=== PATIENT | female | born 1980 | race Caucasian/White ===

== ENCOUNTER → 2019-09-28 09:37 | Outpatient (CLI) | payer MEDICARE, SELFPAY ==
[2019-09-28 23:24] LABS: COVID19 Sendout Not Detected (Not Detect)
== END ==
PROVIDERS: Visit Provider Nurse Practitioner
DX: Z01.812 Encounter for preprocedural laboratory examination (principal)
CPT/HCPCS: 87635

== ENCOUNTER 2019-10-01 11:26 | Inpatient (IN) | payer MEDICARE, SELFPAY ==
[2019-09-24 12:59] VITALS: BMI 31.8
[2019-10-01] VITALS (17 sets, daily range): BP systolic 121–184; BP diastolic 64–129; PULSE 63–109; RESP 10–20; TEMP 36.9–37.8; O2SAT 95–100; BMI 31.8
--- NOTE | 2019-10-01 | DI.RAD.S_ITS ---
PROCEDURE: XR LUMBAR SPINE 2-3V INDICATIONS: TLIF L3-4 TECHNIQUE: 2 views of the lumbar spine were acquired. COMPARISON: None. FINDINGS: Bones: Postoperative evaluation showing bilateral transverse pedicle screws and vertical fixation rods centered at L3-L4, with an interbody disc prosthesis (cage type). Soft tissues: Normal. IMPRESSION: Normal alignment established by posterior fusion crossing L3-L4 with interbody cage is prosthesis at the intervening disc level. Dictated by: Jose Eduardo Pak M.D. on 10/01/2019 at 19:33 Approved by: Jose Eduardo Pak M.D. on 10/01/2019 at 19:35
[2019-10-01] MEDS: LACTATED RINGERS 1,000 ML 42 ML IV ×2 (14:14→16:23)
--- NOTE | 2019-10-01 14:17 | PM.PREOP ---
Pre-operative Note COVID-19 COVID-19 status: Negative Result date/Date tested (Pos, Neg/Pending): 09/29/19 Interval Note History & Physical reviewed/Exam performed by Physician: Yes Changes to H&P: No
[2019-10-01] MEDS: CLINDAMYCIN 900 MG/50 ML PIGGYBACK 50 MG IV ×2 (15:00→22:39)
--- NOTE | 2019-10-01 15:17 | SUR.OPER ---
Prone on spine table, head in foam head support, padded chest and pelvic supports, gel pad at knees, lower legs supported by pillows; nipples, genitalia and toes free of pressure, arms secured on foam padded arm boards at <90 degrees abduction. Tape over blanket at thigh secured to table.
[2019-10-01] MEDS: BUPIVACAINE 0.25% W/ EPI 30 ML VIAL INJ (15:28)
[2019-10-01] MEDS: BUPIVACAINE LIPOSOME 266 MG/20 ML VIAL INJ (15:29)
--- NOTE | 2019-10-01 15:29 | SUR.OPER ---
GLASSES IN LABELED BAG TO PACU WITH PATIENT
--- NOTE | 2019-10-01 17:26 | PM.OP.1 ---
Operative Date/Time/Diagnoses Date of procedure: 10/01/19 Time of procedure: 15:27 Pre-op diagnosis: 1. L3-4 left far lateral disc herniation 2. 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 L3-4 Postero-lateral and posterior interbody fusion 2. L3-4 interbody cage placement. 3. L3-4 decompressive laminectomy with bilateral facetecomies 4. L3-4 Posterior non-segmental instrumentation 5. [place] of bone marrow from iliac crest 6. Utilization of microsurgical technique and operating microscope Same procedure as scheduled: Yes Indications: Patient has been having chronic back pain and worsening lumbar radiculopathy. Patient failed multiple conservative management with worsening pain weakness and numbness in her lower extremity. Patient has been having difficulty performing activity of daily living. After discussing risks benefits of treatment options, patient elected proceed with surgery. Surgeon: Johnathon Warner Award Machine Operator: Jenniffer Martin Click Yes if Unassisted: No Anesthesia Type: General Operative Notes Closure Type: primary Specimen(s): none sent Prosthetic devices, grafts, tissues, transplants, or devices: Globus revolve screws, RIse cage Estimated Blood Loss (mL): 100 Blood products transfused: none Procedure in detail: Patient was seen in the preoperative area. Risks and benefits of the surgery was discussed with the patient. Informed consent was obtained from the patient and placed in the chart. Surgical site was marked. Patient was taken to the operative room. General anesthesia was administered. Prophylactic antibiotic was given to the patient less than 30 min before the incision was made. Patient was placed into a prone position on the Pepe table. Patient's back was then prepped and draped in the sterile fashion. Time-out was performed at this time. Using AP and lateral C-arm imaging the interval between L3-4 was identified and marked on patient's back. A 2 inch incision 2 in from midline was made on the left side first. The fascia was incised in line with skin incision. Globus MARS retractors was placed inside the incision and docked onto the L3 lamina. Using microsurgical technique and operating microscope, a L3 laminectomy and L3-4 facetectomy was performed using a Kerrison rongeur. The disc fragment along with the L3-4 facet was causing severe impingement of the L3 nerve root. The facetectomy laminectomy and diskectomy at L3-4 level was performed for decompression purposes. The disc space at L 3-4 was identified. And a total diskectomy was performed at L3-4 level. Patient was found have a large extruded disc into the L3-4 foramen on the left side causing severe impingement of the L3 nerve root. In order to remove the disc fragment a total facetectomy was performed of the L3-4 facet. The disc fragment along with the L3-4 disc was removed for decompression purposes. The L3-4 level was grossly unstable after the diskectomy and facetectomy was completed and required a fusion procedure at same time. The endplates were decorticated using a rasp and shaver. The total diskectomy and decortication was performed at L3-4 level in order to to accomplish a L3-4 fusion. The local bone from the laminectomy and facetectomy was saved for local bone grafting. After the total diskectomy and decortication was completed, Trifecta bone graft material was combined with local bone that was harvested earlier. At this time, a separate skin is incision was made over the iliac crest. A Jamshidi needle was inserted into the iliac crest through a separate skin incision. 5 cc of bone marrow aspiration was obtained through the separate skin incision using a Jamshidi needle from the iliac crest. The bone marrow aspiration was combined with local bone and the Trifecta bone grafting material. The bone grafting material was placed into the L3-4 interbody space along with a expandable cage. The cage was expanded to its maximum height using the torque limiting screwdriver. At this time a mirror image incision was made on the right side. The fascia was incised in line with the skin incision. Globus MARS retractor was inserted and docked onto the L3-4 posterolateral gutter. Using the power drill, posterior-lateral decortication was performed at L3-4 level until bleeding cortical bone was identified. The remaining bone grafting material was placed into the L3-4 posterior lateral gutter he order to accomplish posterolateral fusion at the L3-4 level. Using the double C-arm technique, pedicle screws were placed into the L3-4 pedicles bilaterally. This was done by placing the Jamshidi needle into the pedicles, then placing the guidewires over the Jamshidi needle, and finally placing the cannulated screws over the guidewires bilaterally. After the pedicle screws were placed, 2 titanium rods was locked into the heads of the pedicle screws using locking caps and torque limiting screwdriver. After all the hardware was placed, and confirmed with AP and lateral C-arm imaging, the wound was then irrigated with sterile normal saline and packed with Ray-Brian gauze for 3 min to accomplish hemostasis. After the gauze was removed the deep fascia was closed with #1 Vicryl suture. The subcutaneous layer was closed with 2-0 Vicryl. The skin was closed with skin jemma. Patient tolerated the procedure well. There were no complications. Complications: none Post-operative Condition: stable Disposition: PACU Plan for aftercare: Admit to inpatient hospital
[2019-10-01] MEDS: LORazepam 2 MG/ML INJ 0.25 MG IV (17:43)
[2019-10-01] MEDS: OXYCODONE IR 5 MG TABLET PO ×2 (17:43→18:05)
[2019-10-01] MEDS: hydrOXYzine 50 MG/ML INJ 25 MG IM (17:43)
[2019-10-01] MEDS: HYDROMORPHONE 2 MG INJ IV ×2 (17:54→18:00)
--- NOTE | 2019-10-01 18:26 | SUR.PHASEI ---
Patient started crying and was inconsolable. Gave IV pain medication per order.
--- NOTE | 2019-10-01 18:46 | SUR.PHASEI ---
Gave report to Peggy. Patient is dozing intermittently and appears comfortable. Tolerating po.
[2019-10-01] MEDS: SODIUM CHLORIDE 0.9% 1,000 ML 100 ML IV (19:08)
[2019-10-01] MEDS: HYDROMORPHONE 0.5 MG INJ IV ×2 (19:39→21:36)
[2019-10-01] MEDS: hydrOXYzine pamoate 25 MG CAPSULE PO (19:39)
[2019-10-01] MEDS: ONDANSETRON 4 MG/2 ML INJ IV (19:40)
[2019-10-01] MEDS: MAG HYDROX/ALUM/SIMETH 30 ML UDC PO (19:45)
[2019-10-01] MEDS: OXYCODONE ER 10 MG TAB PO (20:45)
[2019-10-01] MEDS: OXYCODONE IR 10 MG TABLET PO (20:46)
[2019-10-01] MEDS: MONTELUKAST 10 MG TABLET PO (20:46)
[2019-10-01] MEDS: DOCUSATE 100 MG CAPSULE PO (20:46)
[2019-10-01] MEDS: SENNOSIDES 8.6 MG TABLET 17.2 MG PO (20:46)
[2019-10-02] VITALS (9 sets, daily range): BP systolic 121–132; BP diastolic 66–85; PULSE 92–111; RESP 16–20; TEMP 37.1–37.9; O2SAT 94–99
[2019-10-02] MEDS: OXYCODONE IR 10 MG TABLET PO ×3 (00:04→06:57)
[2019-10-02] MEDS: HYDROMORPHONE 0.5 MG INJ IV ×11 (00:04→22:32)
[2019-10-02] MEDS: hydrOXYzine pamoate 25 MG CAPSULE PO ×2 (00:05→03:54)
[2019-10-02] MEDS: CLINDAMYCIN 900 MG/50 ML PIGGYBACK 50 MG IV (05:57)
--- NOTE | 2019-10-02 06:07 | PC.NURSE ---
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 Request pain medication Q2hrs as well, becomes tearful and shaky. IV Dilaudid given Q2h prn, 10mg oxycodone and 25mg PO Vistartil given Q4h prn per Emar. VSS, SpO2 97% on RA. Drsg to lower back CDI, CMS intact.
[2019-10-02] MEDS: DOCUSATE 100 MG CAPSULE PO ×2 (07:40→20:36)
[2019-10-02] MEDS: OXYCODONE ER 10 MG TAB PO ×2 (07:40→20:36)
--- NOTE | 2019-10-02 07:47 | PM.PNPO.1 ---
Subjective Subjective Date Patient Seen: 10/02/19 Time Patient Seen: 07:47 Interval history: Postop day 1 status post L3-[address] Warner. She had a lot of pain last night, and pain was not controlled with oxycodone 10 mg, and OxyContin 10 ER. After reviewing [facility] patient is regularly prescribed Dilaudid 4 mg with past refills of #112 tablets. She also takes fentanyl 25 mcg patch regularly. Patient reports to nursing she normally takes 8mg of dilaudid every 6 hours. She has been getting up to go to the bathroom. Pain is localized to her back. No radicular symptoms. Exam Vital Signs (past 8 hours): - 10/02/19 00:15 10/02/19 04:25 Temperature 98.8 F 99.2 F Pulse Rate 111 H 92 H Respiratory Rate 16 16 Blood Pressure 131/68 129/72 Pulse Oximetry 97 97 Oxygen Delivery Method Room Air Oxygen Flow Rate 2 Narrative Exam Narrative: Patient is sitting up in bed in no acute distress. Alert orient x3. Calves are soft, her somehow nontender bilaterally. Sensation intact light touch throughout bilateral lower extremities. Dorsalis pedis pulses symmetrical. She is able to actively dorsiflex and plantar flex. Dressing on back CDI. SCDs on and functioning. Objective Labs Result Diagrams: 10/02/19 08:12 Assessment & Plan Post-op Postoperative Procedures: Procedures Operation Date: 10/01/19 13:45 Actual Procedures Side Surgeon p L3-4 TLIF w/ instrumentation Not Applicable Johnathon Wraner MD Given patient's chronic pain and use of Dilaudid and fentanyl regularly it is warranted to start Dilaudid 8 mg every 4 hours for postoperative pain control. She will continue OxyContin 10 mg ER b.i.d.. Patient will mobilize with physical therapy today. 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 Once patient is mobilizing safely with adequate pain control she can go home.
[2019-10-02] MEDS: HYDROMORPHONE 4 MG TABLET PO (08:10)
[2019-10-02 08:19] LABS: Hematocrit 39.4 % (36-46); Hemoglobin 13.1 g/dL (12.0-16.0); Mean Corpuscular HGB Conc 33.3 % (30-36); Mean Corpuscular Hemoglobin 32.8 PG (26-34); Mean Corpuscular Volume 98.4 fL (80-100); Platelet Count 215 X10^3/uL (150-400); Red Cell Distribution Width 13.2 % (11.6-14.8); White Blood Cell Count 16.1 X10^3/uL (4.5-11.0)
--- NOTE | 2019-10-02 08:40 | OT.IP.EVAL ---
Current Diagnoses Spinal stenosis, lumbar region without neurogenic claudication (10/01/19) Intervertebral disc disorders with radiculopathy, lumbar region (10/01/19) Surgery Performed Operation Date: 10/01/19 13:45 Actual Procedures p L3-4 TLIF w/ instrumentation(Not Applicable) - Johnathon Warner MD Past Medical History (Last Updated 09/24/19 @ 15:09 by Rashmi Chaudhry RN) Anemia (Acute) Anxiety (Acute) Asthma (Acute) Bipolar 1 disorder (Acute) Chronic pain disorder (Acute) Depression (Acute) Easy bruisability (Acute) Andreea-Danlos syndrome (Acute) Fragile skin (Acute) Hypokalemia (Acute) Hypotension (Acute) Kidney stones (Acute) Nerve damage (Acute) PTSD (post-traumatic stress disorder) (Acute) Seasonal allergies (Acute) Skin abnormalities (Acute) Spinal stenosis (Acute) Surgical History (Last Updated 09/24/19 @ 15:03 by Rashmi Chaudhry RN) History of hysterectomy (Acute) History of surgery (Acute 05/09/17) Hx of cholecystectomy (Acute) Hx of foot surgery (Acute) Hx of toe surgery (Acute 03/30/19) S/P cervical spinal fusion (Acute 2015) Occupational Therapy Inpatient Evaluation/Re-Eval M1 PT/OT-IP Prior Functional Status Start: 10/02/19 12:50 Freq: NEEDED Status: Active Protocol: Document 10/02/19 08:40 [facility] (Rec: 10/02/19 13:11 [facility] [id number]) Medical Review Prior Functional Status Medical History Reviewed Yes Communication WNL. Pt is an effective verbal communicator. Mobility and Gait Pt is an independent household and community ambulator. She states she sometimes wears a lumbar brace during mobility. 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 Activities of Daily Living and IADL's Independent with increased time. Social History Household Members significant other Living Arrangements House Number of Floors (Floors) One Floor Number of Stairs To Enter/Railing? Ramped entry Home Environment High Toilet,Walk in Shower, Ramp Home Equipment Four Wheel Walker,Crutches, Shower Seat without Backrest, Hand Held Shower,Hospital Bed, Grab Bars Near Toilet,Grab Bars In Shower Additional Social History Comment Pt lives with her boyfriend who works overnight shifts. She has a friend from [place] who is staying with her for the next month to provide assist as needed. M2 OT-IP Current Condition Start: 10/02/19 12:50 Freq: Status: Active Protocol: Document 10/02/19 08:40 [facility] (Rec: 10/02/19 13:11 [facility] [id number]) Occupational Therapy Current Condition Current Condition Evaluation Date 10/02/19 Treatment Diagnosis Lumbar herniation s/p L3-4 TLIF Diagnosis Onset Date 10/01/19 Post Operative Precautions Lumbar Precautions Log Roll,No Twisting,Limit Bending,Lifting Restriction of 10 lbs,Gait Belt above Incisional Area Weight Bearing Status Weight Bearing Status Weight Bear as Tolerated M3 OT- IP Subjective and Pain Start: 10/02/19 12:50 Freq: Status: Active Protocol: Document 10/02/19 08:40 [facility] (Rec: 10/02/19 13:11 [facility] [id number]) OT- Subjective Occupational Therapy Visit Type Type Initial Evaluation Visit Start Time 08:40 Visit Stop Time 09:26 Total Visit Minutes 46 Occupational Therapy Visit Comments Patient Comments Pt open to getting up. Pt's friend from [place] in the room and was woken up to participate in OT eval. Patient/Caregiver Goals To go home. OT Pain Assessment Pain When Pain Assessed During Mobility Pain Present Pain Present Pain Reported Location Back Intensity 3 M4 OT- IP ADL's Start: 10/02/19 12:50 Freq: Status: Active Protocol: Document 10/02/19 08:40 [facility] (Rec: 10/02/19 13:11 [facility] [id number]) OT NPE-Olbk-Lzozena General Evaluation Self-Feeding Ability Independent OT ADL-Grooming General Evaluation Grooming Ability Standby Assistance Areas Needing Assistance Retrieving/Set-up of Grooming Items Comments OT Grooming Comments Educated to bend at her hips while spitting. OT ADL-Dressing General Eval Lower Body Dressing Ability Standby Assistance Areas Needing Assistance Socks Comments OT Dressing Comments Pt able to doff/naa her socks while sitting at the edge of the bed, however able to show and educate pt on LB dressing equipment to increased ease , safety and independence for needs. OT ADL-Toileting General Evaluation Toileting Ability Standby Assistance,Moderate Assistance Areas Needing Assistance Perform Perineal Hygiene Comments OT Toileting Comments At this time pt not able to reach back if needing to do hygiene after a bowel movement. Educated on use of toilet paper aid to assist to needs. OT ADL-Bathing Comments OT Bathing Comments Not at this time. M5 OT- IP IADL's Start: 10/02/19 12:50 Freq: Status: Active Protocol: Document 10/02/19 08:40 [facility] (Rec: 10/02/19 13:11 [facility] [id number]) OT-Instrumental Activities of Daily Living Home Safety Awareness Awareness of Need for Assistance at Home Good Awareness Ability to Problem Solve Emergency Able to Problem Solve Situations Medication Management Medication Management No Deficits Identified Money Management Money Management No Deficits Identified Meal Preparation Meal Preparation Caregiver Provides Assist Film Printer Film Printer Caregiver Provides Assist Driving Driving Caregiver Provides Assist M6 OT- IP Functional Cognition Start: 10/02/19 12:50 Freq: Status: Active Protocol: Document 10/02/19 08:40 [facility] (Rec: 10/02/19 13:11 [facility] [id number]) Cognitive Factors Limiting Selfcare Function Cognitive Ability Level of Alertness Alert Patient Orientation Name,Age,Birthday,Month,Date, Year,Day of Week,Place, Situation Attention Span Ability Capable of Focused Attention, Capable of Sustained Attention Ability to Follow Commands Able to Follow One Step Commands Safety Awareness Decreased Ability to Apply Precautions,Underestimates Need for Assistance Cognitive Comments Cognitive Assessment Comments VC for safety awareness and to incorporate back precautions for needs. OT- Vision and Hearing OT- Hearing Assessment OT- Hearing Assessment WFL OT- Vision Assessment Visual Acuity Glasses All The Time M7 OT- IP Mobility and Balance Start: 10/02/19 12:50 Freq: Status: Active Protocol: Document 10/02/19 08:40 [facility] (Rec: 10/02/19 13:11 [facility] [id number]) OT- Bed Mobility Assessment Supine to Sit Supine to Sit Assist Minimal Assistance,1 Person Assistance Sit to Supine Sit to Supine Assist Minimal Assistance,1 Person Assistance OT-Transfer Assessment Sit to and From Stand Sit to and from Stand Contact Guard Assistance,1 Person Assistance Transfers Transfer Ability Contact Guard Assistance,1 Person Assistance Technique Transfer Destination Bed,Chair Comments Mobility Comments VC for sequence of log rolling , FANNIE to get upright and CGA tro stand to FWW. OT- Balance Assessment Sitting Balance and Reactions Static Sitting Balance Ability Good Dynamic Sitting Balance Ability Good Standing Balance and Reactions Static Standing Balance Ability Good M8 OT- IP Objective Assessments Start: 10/02/19 12:50 Freq: Status: Active Protocol: Document 10/02/19 08:40 [facility] (Rec: 10/02/19 13:11 [facility] [id number]) OT Gross Range of Motion Upper Extremity Range of Motion Assessment Within Functional Limits M9 OT- IP Assessment and Plan Start: 10/02/19 12:50 Freq: Status: Active Protocol: Document 10/02/19 08:40 [facility] (Rec: 10/02/19 13:11 [facility] [id number]) OT Summary Assessment and Plan Potential Rehabilitation Potential Good Analytic Complexity at Evaluation Low Summary OT Impairments Balance,Functional Cognition, Functional Mobility,Grooming, Dressing,Toileting,Bathing, Toilet Transfers,Shower Transfers,Activity Tolerance Progress Towards Goals Progressing Toward Goals Assessment Summary Pt low complexity main barriers are pain and now needing assist for mobility and ADl needs. Pt has a friend to stay with her at home to assist. Therefore continue OT to work with pt and friend for safety of back precautions for Adl , functional mobility and for equipment needs. Goals Grooming Goal Independent Dressing Goal Independent Toileting Goal Independent Bathing Goal Standby Assistance Toilet Transfer Goal Independent Shower Transfer Goal Independent Patient/Caregiver Education Goal Demonstrate Post-Op Precautions,Caregiver Independent Assisting Patient Days to Meet Goals 7 Frequency of Treatment Frequency Of Treatment Once a Day Treatment Plan OT Treatment Plan ADL Training,Functional Cognition Training,Functional Mobility,Patient/Family Education,Discharge Planning Other Treatment Recommendations and Next Caregiver training with pt's Treatment Focus friend. Discharge Recommendations OT Discharge Recommendations Home with Assistance Home Equipment Needs Pt to get shower chair with back, LB dressing equipment , and toilet aid. Transportation Needs at Discharge Private Vehicle
[2019-10-02] MEDS: HYDROMORPHONE 4 MG TABLET 8 MG PO ×4 (11:04→23:31)
--- NOTE | 2019-10-02 11:16 | PT.IIE ---
Current Diagnoses Spinal stenosis, lumbar region without neurogenic claudication (10/01/19) Intervertebral disc disorders with radiculopathy, lumbar region (10/01/19) Surgery Performed Operation Date: 10/01/19 13:45 Actual Procedures p L3-4 TLIF w/ instrumentation(Not Applicable) - Johnathon Warner MD Surgical History (Last Updated 09/24/19 @ 15:03 by Rasmhi Chaudhry RN) History of hysterectomy (Acute) History of surgery (Acute 05/09/17) Hx of cholecystectomy (Acute) Hx of foot surgery (Acute) Hx of toe surgery (Acute 03/30/19) S/P cervical spinal fusion (Acute 2015) Medical History (Last Updated 09/24/19 @ 15:09 by Rashmi Chaudhry RN) Anemia (Acute) Anxiety (Acute) Asthma (Acute) Bipolar 1 disorder (Acute) Chronic pain disorder (Acute) Depression (Acute) Easy bruisability (Acute) Andreea-Danlos syndrome (Acute) Fragile skin (Acute) Hypokalemia (Acute) Hypotension (Acute) Kidney stones (Acute) Nerve damage (Acute) PTSD (post-traumatic stress disorder) (Acute) Seasonal allergies (Acute) Skin abnormalities (Acute) Spinal stenosis (Acute) Physical Therapy Inpatient Evaluation/Re-Eval M1 PT/OT-IP Prior Functional Status Start: 10/02/19 08:29 Freq: NEEDED Status: Active Protocol: Document 10/02/19 10:49 AW (Rec: 10/02/19 11:16 AW [id number]) Medical Review Prior Functional Status Medical History Reviewed Yes Communication WNL. Pt is an effective verbal communicator. Mobility and Gait Pt is an independent household and community ambulator. She states she sometimes wears a lumbar brace during mobility. 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 Activities of Daily Living and IADL's Independent Social History Household Members significant other Living Arrangements House Number of Floors (Floors) One Floor Number of Stairs To Enter/Railing? Ramped entry Home Environment High Toilet,Walk in Shower, Ramp Home Equipment Four Wheel Walker,Crutches, Shower Seat without Backrest, Hand Held Shower,Hospital Bed, Grab Bars Near Toilet,Grab Bars In Shower Additional Social History Comment Pt lives with her boyfriend who works overnight shifts. She has a friend from [place] who is staying with her for the next month to provide assist as needed. M2 PT-IP Current Condition Start: 10/02/19 08:29 Freq: NEEDED Status: Active Protocol: Document 10/02/19 10:49 AW (Rec: 10/02/19 11:16 AW [id number]) Physical Therapy Current Condition Current Condition Evaluation Date 10/02/19 Treatment Diagnosis L3-4 TLIF; difficulty in walking Onset Date 10/01/19 Precautions Lumbar Precautions Log Roll,No Twisting,Limit Bending,Lifting Restriction of 10 lbs,Gait Belt above Incisional Area M3 PT-IP Subjective Start: 10/02/19 08:29 Freq: NEEDED Status: Active Protocol: Document 10/02/19 10:49 AW (Rec: 10/02/19 11:16 AW [id number]) Subjective Physical Therapy Visit Type Type Initial Evaluation Visit Start Time 09:35 Visit Stop Time 09:58 Total Visit Minutes 23 Physical Therapy Visit Comments Patient Comments Pt has difficulty tolerating the chair and wanting to return to the bed. She was willing to work with PT. Patient Goals Pt hopes to discharge to home with her friend and boyfriend assisting. Therapy Pain Assessment Pain When Pain Assessed During Mobility Pain Present Pain Present Pain Reported Location Back Intensity 6 Scale Used 6/10 at rest; unchanged with mobility Pain Behaviors Facial Grimacing,Wincing M4 PT-IP Mobility and Gait Start: 10/02/19 08:29 Freq: NEEDED Status: Active Protocol: Document 10/02/19 10:49 AW (Rec: 10/02/19 11:16 AW [id number]) PT-Bed Mobility Assessment Rolling Type of Rolling Log Rolling Level of Assist Contact Guard Assistance Sit to Supine Sit to Supine Minimal Assistance,1 Person Assistance Scooting Scooting to Edge of Bed Standby Assistance Scooting Up and Down in Bed Standby Assistance PT-Transfer Assessment Sit to and From Stand Sit to and from Stand Contact Guard Assistance,1 Person Assistance Equipment Transfer Assistive Device Gait Belt,Front Wheeled Walker Orthotic/Prosthetic Devices or Brace: No Transfers Transfer Destination Bed Transfer Technique pt ambulated with FWW Transfer Ability Level of Assist Contact Guard Assistance Comments Mobility Comments Pt was returning to bed as PT entered the room. She had sat in the chair for ~10 minutes before requesting return to bed. PT took over from LEAD RUBY [employer] RAILS DEVELOPER and pt stood using FWW CGA. She proceeded to ambulate in the halls with FWW CGA before returning to the room and requesting return to bed. She sat on the right side of the bed and completed log roll and return to supine min A x 1 and cues for sequencing. Pt was positioned on the bed with alarm on, bilateral SCD's applied, call light and all needs within reach. Gait Assessment Gait Gait Assistance Required: Standby Assistance,Contact Guard Assist Distance (Feet) 400 Assistive Devices Assistive Device Gait Belt,Front Wheeled Walker Orthotic/Prosthetic Devices or Brace: No Gait Deviations General Gait Pattern Antalgic,Decreased Stride Length,Decreased Feet Clearance,Flexed Trunk Factors Limiting Gait Function Factors Limiting Gait Function Decreased Activity Tolerance, Decreased Strength,Limited Range of Motion,Pain,Poor Balance,Poor Safety Awareness Comments Gait Comments Pt ambulated with FWW around the [facility] station three times. It feels good to move. Pt required minimal verbal cues for safe use of FWW and to avoid twisting movements. Stair Climbing Assessment Comments Stair Climbing Comments Not assessed. Pt has ramped entry at home. PT-Balance Assessment Sitting Balance and Reactions Static Sitting Balance Ability Good Dynamic Sitting Balance Ability Good Standing Balance and Reactions Static Standing Balance Ability Good Dynamic Standing Balance Ability Good Device Used FWW M5 PT-IP Objective Assessments Start: 10/02/19 08:29 Freq: NEEDED Status: Active Protocol: Document 10/02/19 10:49 AW (Rec: 10/02/19 11:16 AW [id number]) Orientation Orientation/Cognition Level of Alertness Alert Orientation Name,Day of Week,Place, Situation Language Function Ability No Deficits Noted Safety Awareness Understands Safety Issues Memory Description No Deficits Noted Gross Range of Motion Lower Extremity ROM Assessment Within Functional Limits Strength Lower Extremity Strength Hip 4/5 Knee 4+/5 Ankle 4+/5 Coordination Assessment Gross Coordination Gross Coordination WNL Sensation Assessment Sensation Gross Sensation WNL Muscle Tone Muscle Tone WNL Yes M6 PT-IP Treatment Start: 10/02/19 08:29 Freq: NEEDED Status: Active Protocol: Document 10/02/19 10:49 AW (Rec: 10/02/19 11:16 AW [id number]) Physical Therapy Treatment Education Education Provided Precautions,Weight Bearing Status,Post-Op Packet,Safety Other Treatments Other Treatment Performed Provided education on role of PT, plan of care, post-op precautions, benefits of continued mobility, and safe use of FWW. M7 PT-IP Assessment and Plan Start: 10/02/19 08:29 Freq: NEEDED Status: Active Protocol: Document 10/02/19 10:49 AW (Rec: 10/02/19 11:16 AW [id number]) PT Summary Assessment and Plan Potential Rehabilitation Potential Good Status of Condition at Evaluation Evolving Summary Impairments Pain,ROM,Strength,Balance,Bed Mobility,Transfers,Gait, Activity Tolerance Assessment Summary Mildred is a 39 yo woman with history of Andreea Danlos syndrome seen for PT evaluation on POD1 following L3-4 TLIF. At baseline, she is an independent ambulator. On evaluation, she required min assist for bed mobility and SBA to CGA for ambulation with FWW. Pt has a 4WW at home. Gait will be assessed with 4WW at PM session. Pt did require multiple reminders to avoid twisting movements in the bed. Her underlying hypermobility makes this especially important. PT anticipates pt will be safe to discharge to home environment with assist from her boyfriend and friend once medically cleared. Goals Bed Mobility Goal Standby Assistance Transfer Goal Independent,Four Wheeled Walker Gait Goal Independent,Four Wheel Walker Gait Distance 500 Other Goals - pt will verbalize post op spinal precautions and be able to teach her friend and/or boyfriend Days to Meet Goals 2 Frequency of Treatment Frequency Of Treatment Twice a Day Treatment Plan Physical Therapy Treatment Plan Bed Mobility Training,Transfer Training,Gait Training, Therapeutic Exercise,Balance Retraining,Post Op Education, Discharge Planning,Hot or Cold Pack Other Recommendations and Next Treatment bed mobility; review spinal Focus precautions and ask pt to teach them to her friend or boyfriend; gait with 4WW to assess safety Recommendations To Nursing Amount of Assist Needed 1 Person Assist Discharge Recommendations PT Discharge Recommendations Home with Assistance Equipment Needed for Home Before FWW if not safe with 4WW Discharge Transportation Needs at Discharge Private Vehicle
--- NOTE | 2019-10-02 13:46 | PC.NURSE ---
Day shift: Pain controlled ok per MAY at this time. Pt's pain at rest 5-6/10 and when she gets OOB and back to bed back 01/04. Pt does see a pain doc and AVNI Martin is aware. WIll continue to monitor. BAck dressing CDI. Pt did ambulate in halls today w/ PT and tolerated well. Makes needs known proper and agrees to not get OOB w/o staff. Denies nausea. Urine output WNL. CMS ok. VS WNL.
--- NOTE | 2019-10-02 14:51 | PT.IPTN ---
Current Diagnoses Spinal stenosis, lumbar region without neurogenic claudication (10/01/19) Intervertebral disc disorders with radiculopathy, lumbar region (10/01/19) Surgery Performed Operation Date: 10/01/19 13:45 Actual Procedures p L3-4 TLIF w/ instrumentation(Not Applicable) - Johnathon Warner MD Physical Therapy Treatment Note M2 PT-IP Current Condition Start: 10/02/19 08:29 Freq: NEEDED Status: Active Protocol: Document 10/02/19 10:49 AW (Rec: 10/02/19 11:16 AW [id number]) Physical Therapy Current Condition Current Condition Evaluation Date 10/02/19 Treatment Diagnosis L3-4 TLIF; difficulty in walking Onset Date 10/01/19 Precautions Lumbar Precautions Log Roll,No Twisting,Limit Bending,Lifting Restriction of 10 lbs,Gait Belt above Incisional Area M3 PT-IP Subjective Start: 10/02/19 08:29 Freq: NEEDED Status: Active Protocol: Document 10/02/19 14:41 CLB (Rec: 10/02/19 15:01 CLB [email or web address]) Subjective Physical Therapy Visit Type Type Treatment Note Visit Start Time 14:41 Visit Stop Time 14:51 Total Visit Minutes 10 Notes Friend present but deeply sleeping during tx. Number of TOOL COORDINATOR Visits 1 Physical Therapy Visit Comments Patient Comments Pt willing to work with therapy. Therapy Pain Assessment Pain When Pain Assessed During Mobility Pain Present Pain Present Pain Reported Location Back Intensity 7 Scale Used 5/10 at rest Pain Behaviors Facial Grimacing,Wincing M4 PT-IP Mobility and Gait Start: 10/02/19 08:29 Freq: NEEDED Status: Active Protocol: Document 10/02/19 14:41 CLB (Rec: 10/02/19 15:01 CLB [email or web address]) PT-Bed Mobility Assessment Rolling Type of Rolling Log Rolling Level of Assist Contact Guard Assistance Supine to Sit Supine to Sit Contact Guard Assistance Sit to Supine Sit to Supine Contact Guard Assistance Scooting Scooting to Edge of Bed Standby Assistance Scooting Up and Down in Bed Standby Assistance PT-Transfer Assessment Sit to and From Stand Sit to and from Stand Standby Assistance,1 Person Assistance,Use of Upper Extremities Equipment Transfer Assistive Device Gait Belt,Front Wheeled Walker Orthotic/Prosthetic Devices or Brace: No Transfers Transfer Destination Bed Transfer Technique pt ambulated with FWW Transfer Ability Level of Assist Contact Guard Assistance Comments Mobility Comments Pt performed LR and sit-supine CGA. Pt was able to scoot to EOB and stand SBA. Pt ambulated in [place] ~ 200ft w/ FWW/SBA with steady gait and good posture. Pt returned to bed with reverse LR to supine CGA. Left pt in bed with alarm on, SCD's on and all needs within reach. Gait Assessment Gait Gait Assistance Required: Standby Assistance Distance (Feet) 200 Assistive Devices Assistive Device Gait Belt,Front Wheeled Walker Orthotic/Prosthetic Devices or Brace: No Gait Deviations General Gait Pattern Antalgic,Decreased Stride Length,Decreased Feet Clearance,Flexed Trunk Factors Limiting Gait Function Factors Limiting Gait Function Decreased Activity Tolerance, Decreased Strength,Limited Range of Motion,Pain,Poor Balance Comments Gait Comments See mobility notes Stair Climbing Assessment Comments Stair Climbing Comments Not assessed. Pt has ramped entry at home. PT-Balance Assessment Sitting Balance and Reactions Static Sitting Balance Ability Good Dynamic Sitting Balance Ability Good Standing Balance and Reactions Static Standing Balance Ability Good Dynamic Standing Balance Ability Good Device Used FWW M5 PT-IP Objective Assessments Start: 10/02/19 08:29 Freq: NEEDED Status: Active Protocol: Document 10/02/19 10:49 AW (Rec: 10/02/19 11:16 AW [id number]) Orientation Orientation/Cognition Level of Alertness Alert Orientation Name,Day of Week,Place, Situation Language Function Ability No Deficits Noted Safety Awareness Understands Safety Issues Memory Description No Deficits Noted Gross Range of Motion Lower Extremity ROM Assessment Within Functional Limits Strength Lower Extremity Strength Hip 4/5 Knee 4+/5 Ankle 4+/5 Coordination Assessment Gross Coordination Gross Coordination WNL Sensation Assessment Sensation Gross Sensation WNL Muscle Tone Muscle Tone WNL Yes M6 PT-IP Treatment Start: 10/02/19 08:29 Freq: NEEDED Status: Active Protocol: Document 10/02/19 10:49 AW (Rec: 10/02/19 11:16 AW [id number]) Physical Therapy Treatment Education Education Provided Precautions,Weight Bearing Status,Post-Op Packet,Safety Other Treatments Other Treatment Performed Provided education on role of PT, plan of care, post-op precautions, benefits of continued mobility, and safe use of FWW. M7 PT-IP Assessment and Plan Start: 10/02/19 08:29 Freq: NEEDED Status: Active Protocol: Document 10/02/19 14:41 CLB (Rec: 10/02/19 15:01 CLB [email or web address]) PT Summary Assessment and Plan Potential Rehabilitation Potential Good Status of Condition at Evaluation Evolving Summary Impairments Pain,ROM,Strength,Balance,Bed Mobility,Transfers,Gait, Activity Tolerance Assessment Summary Pt is SBA-CGA for all mobilty. Pt ambulated ~200ft w/FWW/SBA with pain at rest 5/10 increasing to 7/10 with ambulation. Pt recalled 3/3 back precautions. Pt will be safe to d/c home with boyfriend and friend to assist when medically stable. Goals Bed Mobility Goal Standby Assistance Transfer Goal Independent,Four Wheeled Walker Gait Goal Independent,Four Wheel Walker Gait Distance 500 Other Goals - pt will verbalize post op spinal precautions and be able to teach her friend and/or boyfriend Days to Meet Goals 2 Frequency of Treatment Frequency Of Treatment Twice a Day Treatment Plan Physical Therapy Treatment Plan Bed Mobility Training,Transfer Training,Gait Training, Therapeutic Exercise,Balance Retraining,Post Op Education, Discharge Planning,Hot or Cold Pack Other Recommendations and Next Treatment bed mobility; review spinal Focus precautions and ask pt to teach them to her friend or boyfriend; gait with 4WW to assess safety Recommendations To Nursing Amount of Assist Needed 1 Person Assist Discharge Recommendations PT Discharge Recommendations Home with Assistance Equipment Needed for Home Before FWW if not safe with 4WW Discharge Transportation Needs at Discharge Private Vehicle
--- NOTE | 2019-10-02 14:57 | CM.DANOTE ---
Discharge Planning/Care Management DCP: assessment: case received, EMR reviewed. Discussed in Team Rounds. PT and OT were ordered but had not yet worked with pt. Pt is a 39 year old female who carried diagnosis of Andreea -Danlos syndrome and admitted to Dr. Warner for a scheduled spinal surgery: Payer: Medicare Admission status: confirmed INPT: per ALEJANDRINA Pollard. Pt's had identified her plan to pre-op nurse: [facility] as home. She lives with her boyfriend Robert. She also has a friend who will be staying for a month to help her as she recovers. P: Will pass on now to [facility] for tomorrow to check in with pt and continue the assessment process. (caseload numbers dictate same). CM Discharge Assessment Start: 10/02/19 14:54 Freq: Status: Active Protocol: Document 10/02/19 14:55 ITV (Rec: 10/02/19 14:56 ITV [id number]) Discharge Planning Assessment Advance Directives? No History Provided By Medical Record Prior Living Arrangements House Household Members significant other Is patient alert and oriented? Yes Review Status In Process Pre-Anesthesia Assessment Start: 09/24/19 12:59 Freq: Status: Complete Protocol: Document 09/24/19 12:59 CAB (Rec: 09/24/19 13:56 CAB [id number]) Pre-Anesthesia Assessment PAC Comment Andreea-Danlos syndrome - multiple joint dislocations multiple times a day, requires extreme care with positioning . Skin is very sensitive, tears easily Patient Information Reviewed Via Phone Assessment Assessment Completed With Patient Diagnostic Results BMP/CMP,CBC,EKG Comment Outside labs/EKG scanned to record COVID @ 09/28/19 Primary Care Provider Alexey Gongora Seen Specialist in Last 12 Months Yes Specialist Seen Campus Monitor,Orthopedist, Spent Grain Dryer,Other Primary Language Hebrew Program Support Assistant Required No Height 168.91 cm Weight 90.718 kg Body Mass Index (BMI) 31.8 Hearing Ability Normal Visual Assist Glasses Dentition Type Teeth, Natural Present Barriers to Learning None Hx Anesthesia Reactions Yes: PONV Hx Family Anesthesia Reaction No Hx Malignant Hyperthermia No Hx Blood Transfusions No Anesthesia Review Requested No alcohol intake never Smoking Status Never smoker Substance Use Type marijuana Comment Pt advised not to smoke marijuana 24 hours prior to surgery Pain Present Pain Reported Musculoskeletal Symptoms Abnormal Gait,Back Pain, Difficulty Walking,Joint Pain, Muscle Cramps,Muscle Spasms, Muscle Weakness,Myalgias, Numbness,Radiating Pain into Limb History of Falling (Recent or History of No ) Patient is completely paralyzed or No completely immobile Mental Status Oriented to own ability Is patient on oxygen? No Does patient have TAY/SOB No Hx Sleep Apnea No Currently Taking a Beta Shimon No Hx Chest Pain No Hx SOB No Hx Syncope or Dizziness No Anti-Coagulant Therapy No Has a Campus Monitor Yes: Dr. Cesar-last visit Cardiac Testing No: Echo 03/05/19 Hx Pacemaker/ICD No Pacemaker Rep Required? No Cardiac Clearance Received Not Applicable Comment Cardiac records scanned to chart Diet Type At Home Regular,Vegetarian dysphagia No Bladder Pattern Urgency Urinary Catheter Present No Hx Urinary Self Catheterization No Diabetes No Patient No Lactating No Hx Drug Resistant Organism No Presence of External or Internal Medical Yes: Cervical hardware, left Devices great toe hardware Have you had any close contact with No someone diagnosed with COVID-19? Evaluation/Screening for possible COVID- Yes 19 infection completed? Marital Status Single Lives With significant other Prior Living Arrangements House Number of Floors (Floors) Two Floors Support System Family,Parent(s),Significant Other Does the Patient Have Assistance After Yes Surgery Patient Discharge Plan Description Return Home Comment Pt advised one night length of stay per surgeon Feels Safe in Current Environment Yes Been Physically Hurt or Threatened By a No Person in Current Environment Do you have thoughts of harming yourself None or others? Are you currently considering suicide? No Do you have a plan to hurt yourself or No Plan others? Do You Have Any Spiritual Beliefs That No May Affect Your HC Choices? Do You Have Any Cultural Practices That No May Affect Your HC Choices? Who Can We Speak to About Patient's Care Family, friends Identifying Code for Release of Patient Declines to issue Information Health Care Proxy/Next of Kin Robert (S.O.) Health Care Proxy Emergency Contact Name Alysha (grandmother) Emergency Contact Advance Directives? No Power of Health Plan Advisor No PAC Instructions Durable medical equipment, Medications to take/avoid, Nasal antibiotic,No ETOH/ petroleum product on skin DOS, NPO,Pre-surgical wash,Sturdy shoes/comfortable clothes,Do not bring valuables and remove jewelry
[2019-10-02] MEDS: hydrOXYzine pamoate 25 MG CAPSULE 50 MG PO (18:10)
[2019-10-02] MEDS: MONTELUKAST 10 MG TABLET PO (20:35)
[2019-10-02] MEDS: SENNOSIDES 8.6 MG TABLET 17.2 MG PO (20:36)
[2019-10-02] MEDS: diphenhydrAMINE 25 MG TABLET PO (21:49)
--- NOTE | 2019-10-02 22:48 | PC.NURSE ---
Surgical lumbar dressing w/small amt of bloody drainage, margins marked. C/O constant lower back and groin pain not well controlled w/frequent narcotic admin.
[2019-10-03] MEDS: HYDROMORPHONE 0.5 MG INJ IV ×5 (02:24→15:42)
[2019-10-03] MEDS: SODIUM CHLORIDE 0.9% FLUSH 10 ML IV ×2 (03:12→08:13)
[2019-10-03] MEDS: HYDROMORPHONE 4 MG TABLET 8 MG PO ×3 (05:23→13:25)
[2019-10-03 05:54] VITALS: BP 121/69; PULSE 97; RESP 16; TEMP 37.2; O2SAT 92
[2019-10-03 07:50] VITALS: BP 113/59; PULSE 93; RESP 16; TEMP 37.2; O2SAT 94
[2019-10-03] MEDS: ALBUTEROL HFA 60 PUFF/8 GM INH INH (08:02)
[2019-10-03 08:10] VITALS: PULSE 78; RESP 18; O2SAT 96
[2019-10-03] MEDS: DOCUSATE 100 MG CAPSULE PO (08:11)
[2019-10-03] MEDS: OXYCODONE ER 10 MG TAB PO (08:11)
--- NOTE | 2019-10-03 09:28 | PT.IPTN ---
Current Diagnoses Spinal stenosis, lumbar region without neurogenic claudication (10/01/19) Intervertebral disc disorders with radiculopathy, lumbar region (10/01/19) Surgery Performed Operation Date: 10/01/19 13:45 Actual Procedures p L3-4 TLIF w/ instrumentation(Not Applicable) - Johnathon Warner MD Physical Therapy Treatment Note M2 PT-IP Current Condition Start: 10/02/19 08:29 Freq: NEEDED Status: Active Protocol: Document 10/02/19 10:49 AW (Rec: 10/02/19 11:16 AW [id number]) Physical Therapy Current Condition Current Condition Evaluation Date 10/02/19 Treatment Diagnosis L3-4 TLIF; difficulty in walking Onset Date 10/01/19 Precautions Lumbar Precautions Log Roll,No Twisting,Limit Bending,Lifting Restriction of 10 lbs,Gait Belt above Incisional Area M3 PT-IP Subjective Start: 10/02/19 08:29 Freq: NEEDED Status: Active Protocol: Document 10/03/19 09:05 SP (Rec: 10/03/19 12:25 SP [email or web address]) Subjective Physical Therapy Visit Type Type Treatment Note Visit Start Time 09:05 Visit Stop Time 09:28 Total Visit Minutes 23 Notes Friend in room when arrived, deeply sleeping during tx. Number of HOGSHEAD LINER Visits 2 Physical Therapy Visit Comments Patient Comments Pt willing to work with PT. Patient Goals Pt hopes to discharge to home with her friend and boyfriend assisting, hoping will have oral pain medications that will assist with pain control. Therapy Pain Assessment Pain When Pain Assessed At Rest Pain Present Pain Present Pain Reported Location Back Intensity 7 Scale Used 7/10 at rest, 8/10 during mobility Pain Behaviors Facial Grimacing,Restlessness, Wincing M4 PT-IP Mobility and Gait Start: 10/02/19 08:29 Freq: NEEDED Status: Active Protocol: Document 10/03/19 09:05 SP (Rec: 10/03/19 12:25 SP [email or web address]) PT-Bed Mobility Assessment Rolling Type of Rolling Log Rolling,Bilateral Level of Assist Standby Assistance Supine to Sit Supine to Sit Standby Assistance,Head of Bed Elevated,Bedrails Sit to Supine Sit to Supine Standby Assistance Scooting Scooting to Edge of Bed Standby Assistance Scooting Up and Down in Bed Standby Assistance PT-Transfer Assessment Sit to and From Stand Sit to and from Stand Standby Assistance,Use of Upper Extremities Equipment Transfer Assistive Device Gait Belt,4 Wheeled Walker Orthotic/Prosthetic Devices or Brace: No Transfers Transfer Destination Bed Transfer Technique pt ambulated with FWW Transfer Ability Level of Assist Standby Assistance,Use of Upper Extremities Comments Mobility Comments Pt was elevated supine in bed when arrived, friend deeply sleeping in bed throughout tx. 30 deg elevated log roll to R with support of bed rails and right trunk herself to sitting and scoot to EOB SBA. Sit <> stand at EOB SBA with good hip hinge and use of BUE to come to standing, stable and use of 4WW with good safety brake mgt. Pt was able to ambulate further distance in hallway step over step gait with decreased BUE pressure through 4WW SBA and increased foot clearance and stride length as distance progressed. Pt stated wanting to return to bed when returned to room. Pt performed LR during sit to supine SBA. Educated patient on ther ex could perform to assist core facilitation for spinal stabilization awareness : quad sets, supine core activation, heel slides, ankle pumps and seated LAQ pre per mobility for strength supporting mobility. HOGSHEAD LINER offered cold pack to assist pain control but declined, pt stated it didn't help earlier. Discussed progress in PT with nurse and care mgt team during rounds, improvement in self mobility and maintaining spinal precautions. Pt is able to return home with friend to assistance her and pain controlled when medically stable. Gait Assessment Gait Gait Assistance Required: Standby Assistance Distance (Feet) 420 Able to Maintain Weight Bearing Status Yes During Gait Assistive Devices Assistive Device Gait Belt,4 Wheeled Walker Orthotic/Prosthetic Devices or Brace: No Gait Deviations General Gait Pattern Antalgic,Decreased Stride Length,Decreased Feet Clearance,Flexed Trunk Factors Limiting Gait Function Factors Limiting Gait Function Decreased Activity Tolerance, Decreased Strength,Limited Range of Motion,Pain Comments Gait Comments SBA with FWW to walk to and from the bathroom. Stair Climbing Assessment Comments Stair Climbing Comments Not assessed. Pt has ramped entry at home. PT-Balance Assessment Sitting Balance and Reactions Static Sitting Balance Ability Normal Dynamic Sitting Balance Ability Good Standing Balance and Reactions Static Standing Balance Ability Good Dynamic Standing Balance Ability Fair Device Used 4WW M5 PT-IP Objective Assessments Start: 10/02/19 08:29 Freq: NEEDED Status: Active Protocol: Document 10/02/19 10:49 AW (Rec: 07/07/20 11:16 AW [id number]) Orientation Orientation/Cognition Level of Alertness Alert Orientation Name,Day of Week,Place, Situation Language Function Ability No Deficits Noted Safety Awareness Understands Safety Issues Memory Description No Deficits Noted Gross Range of Motion Lower Extremity ROM Assessment Within Functional Limits Strength Lower Extremity Strength Hip 4/5 Knee 4+/5 Ankle 4+/5 Coordination Assessment Gross Coordination Gross Coordination WNL Sensation Assessment Sensation Gross Sensation WNL Muscle Tone Muscle Tone WNL Yes M6 PT-IP Treatment Start: 10/02/19 08:29 Freq: NEEDED Status: Active Protocol: Document 10/03/19 09:05 SP (Rec: 10/03/19 12:25 SP [email or web address]) Physical Therapy Treatment Exercises Exercises Ankle Pumps,Quad Sets,Heel Slides,Supine Hip Abduction, Seated Knee Flexion/Extension Education Education Provided Precautions,Weight Bearing Status,Post-Op Packet,Safety Other Treatments Other Treatment Performed Educated core facilitation during mobility to assist spinal stabilization. M7 PT-IP Assessment and Plan Start: 10/02/19 08:29 Freq: NEEDED Status: Active Protocol: Document 10/03/19 09:05 SP (Rec: 10/03/19 12:25 SP [email or web address]) PT Summary Assessment and Plan Potential Rehabilitation Potential Good Status of Condition at Evaluation Evolving Summary Impairments Pain,ROM,Strength,Balance,Bed Mobility,Transfers,Gait, Activity Tolerance Assessment Summary Pt is SBA for all mobilty. Pt ambulated ~420ft w/4WW/SBA with pain at rest 7/10 increaseing to 8/10 with ambulation. Pt recalled 3/3 back precautions. Pt will be safe to d/c home with boyfriend and friend to assist when medically stable. Goals Bed Mobility Goal Standby Assistance Transfer Goal Independent,Four Wheeled Walker Gait Goal Independent,Four Wheel Walker Gait Distance 500 Other Goals - pt will verbalize post op spinal precautions and be able to teach her friend and/or boyfriend Days to Meet Goals 2 Frequency of Treatment Frequency Of Treatment Twice a Day Treatment Plan Physical Therapy Treatment Plan Bed Mobility Training,Transfer Training,Gait Training, Therapeutic Exercise,Balance Retraining,Post Op Education, Discharge Planning,Hot or Cold Pack Other Recommendations and Next Treatment bed mobility; review spinal Focus precautions and ask pt to teach them to her friend or boyfriend. Recommendations To Nursing Amount of Assist Needed Standby Assistance Discharge Recommendations PT Discharge Recommendations Home with Assistance Equipment Needed for Home Before Pt demonstrated safe mobility Discharge using personal 4WW during tx and support for home mobility. Transportation Needs at Discharge Private Vehicle
--- NOTE | 2019-10-03 10:45 | OT.IP.TRT ---
Current Diagnoses Spinal stenosis, lumbar region without neurogenic claudication (10/01/19) Intervertebral disc disorders with radiculopathy, lumbar region (10/01/19) Surgery Performed Operation Date: 10/01/19 13:45 Actual Procedures p L3-4 TLIF w/ instrumentation(Not Applicable) - Johnathon Warner MD Occupational Therapy Treatment Note M2 OT-IP Current Condition Start: 10/02/19 12:50 Freq: Status: Active Protocol: Document 10/02/19 08:40 [facility] (Rec: 10/02/19 13:11 [facility] [id number]) Occupational Therapy Current Condition Current Condition Evaluation Date 10/02/19 Treatment Diagnosis Lumbar herniation s/p L3-4 TLIF Diagnosis Onset Date 10/01/19 Post Operative Precautions Lumbar Precautions Log Roll,No Twisting,Limit Bending,Lifting Restriction of 10 lbs,Gait Belt above Incisional Area Weight Bearing Status Weight Bearing Status Weight Bear as Tolerated M3 OT- IP Subjective and Pain Start: 10/02/19 12:50 Freq: Status: Active Protocol: Document 10/03/19 10:05 [facility] (Rec: 10/03/19 12:06 [facility] [id number]) OT- Subjective Occupational Therapy Visit Type Type Treatment Note Visit Start Time 10:05 Visit Stop Time 10:45 Total Visit Minutes 40 Occupational Therapy Visit Comments Patient Comments Pt wanting to use the bathroom and sponge off. Patient/Caregiver Goals To go home. OT Pain Assessment Pain When Pain Assessed At Rest Pain Present Pain Present Pain Reported Location Back Intensity 5 Scale Used Numeric (0 - 10) M4 OT- IP ADL's Start: 10/02/19 12:50 Freq: Status: Active Protocol: Document 10/03/19 10:05 [facility] (Rec: 10/03/19 12:06 [facility] [id number]) OT MWM-Vgfu-Sohhbpn General Evaluation Self-Feeding Ability Independent OT ADL-Grooming General Evaluation Grooming Ability Standby Assistance Areas Needing Assistance Retrieving/Set-up of Grooming Items Comments OT Grooming Comments While seated. OT ADL-Dressing Comments OT Dressing Comments Pt has ordered all LB dressing equipment and toilet paper aid. OT ADL-Toileting General Evaluation Toileting Ability Moderate Assistance Areas Needing Assistance Perform Perineal Hygiene Comments OT Toileting Comments Pt not able to reach and has ordered a toilet paper aid to assist for hygiene needs at home. OT ADL-Bathing Bathing Type Bathing Type Sponge Bath General Evaluation Bathing Ability Minimal Assistance Areas Needing Assistance Wash/Dry Perineal Area Comments OT Bathing Comments Pt wanting to try to shower tomorrow and has ordered a shower chair. Pt able to sponge off and needing FANNIE for completeness for pericare needs. M5 OT- IP IADL's Start: 10/02/19 12:50 Freq: Status: Active Protocol: Document 10/02/19 08:40 [facility] (Rec: 10/02/19 13:11 [facility] [id number]) OT-Instrumental Activities of Daily Living Home Safety Awareness Awareness of Need for Assistance at Home Good Awareness Ability to Problem Solve Emergency Able to Problem Solve Situations Medication Management Medication Management No Deficits Identified Money Management Money Management No Deficits Identified Meal Preparation Meal Preparation Caregiver Provides Assist Genetic Coordinator Genetic Coordinator Caregiver Provides Assist Driving Driving Caregiver Provides Assist M6 OT- IP Functional Cognition Start: 10/02/19 12:50 Freq: Status: Active Protocol: Document 10/03/19 10:05 [facility] (Rec: 10/03/19 12:06 [facility] [id number]) Cognitive Factors Limiting Selfcare Function Cognitive Comments Cognitive Assessment Comments Pt doing better to follow back precautions today. Pt just needing initial cue to do log rolling with the bed flat. M7 OT- IP Mobility and Balance Start: 10/02/19 12:50 Freq: Status: Active Protocol: Document 10/03/19 10:05 [facility] (Rec: 10/03/19 12:06 [facility] [id number]) OT- Bed Mobility Assessment Supine to Sit Supine to Sit Assist Standby Assistance,1 Person Assistance Sit to Supine Sit to Supine Assist Standby Assistance,1 Person Assistance OT-Transfer Assessment Sit to and From Stand Sit to and from Stand Standby Assistance,1 Person Assistance Transfers Transfer Ability Standby Assistance,1 Person Assistance Technique Transfer Destination Bed,Chair,Toilet Comments Mobility Comments Initial vc to have bed flat during log rolling. OT- Gait Assessment Gait Gait Assistance Required: Standby Assistance,1 Person Assist Comments Gait Ability Comments SBA with FWW to walk to and from the bathroom. OT- Balance Assessment Sitting Balance and Reactions Static Sitting Balance Ability Normal Dynamic Sitting Balance Ability Good Standing Balance and Reactions Static Standing Balance Ability Good Dynamic Standing Balance Ability Fair M8 OT- IP Objective Assessments Start: 10/02/19 12:50 Freq: Status: Active Protocol: Document 10/02/19 08:40 [facility] (Rec: 10/02/19 13:11 [facility] [id number]) OT Gross Range of Motion Upper Extremity Range of Motion Assessment Within Functional Limits M9 OT- IP Assessment and Plan Start: 10/02/19 12:50 Freq: Status: Active Protocol: Document 10/03/19 10:05 [facility] (Rec: 10/03/19 12:06 [facility] [id number]) OT Summary Assessment and Plan Potential Rehabilitation Potential Good Analytic Complexity at Evaluation Low Summary OT Impairments Balance,Functional Mobility, Dressing,Toileting,Bathing, Toilet Transfers,Shower Transfers,Activity Tolerance Progress Towards Goals Progressing Toward Goals Assessment Summary Pt doing well, SBA with mobility needs and have ordered LB dressing equipment, toilet paper aid, and shower chair and back to use at home. To go over showering tomorrow with pt for OT needs of incorporating back precautions. Goals Grooming Goal Independent Dressing Goal Independent Toileting Goal Independent Bathing Goal Standby Assistance Toilet Transfer Goal Independent Shower Transfer Goal Independent Patient/Caregiver Education Goal Demonstrate Post-Op Precautions,Caregiver Independent Assisting Patient Days to Meet Goals 3 Frequency of Treatment Frequency Of Treatment Once a Day Treatment Plan OT Treatment Plan ADL Training,Functional Cognition Training,Functional Mobility,Patient/Family Education,Discharge Planning Other Treatment Recommendations and Next Caregiver training with pt's Treatment Focus friend. Discharge Recommendations OT Discharge Recommendations Home with Assistance Home Equipment Needs Pt to get shower chair with back, LB dressing equipment , and toilet aid. ( Pt has already ordered the items. ) Transportation Needs at Discharge Private Vehicle
--- NOTE | 2019-10-03 11:29 | PM.PN.1 ---
Exam Vital Signs (past 8 hours): - 10/03/19 05:54 10/03/19 07:50 10/03/19 08:10 Temperature 98.9 F 99.0 F Pulse Rate 97 H 93 H 78 Respiratory Rate 16 16 18 Blood Pressure 121/69 113/59 L Pulse Oximetry 92 94 96 Oxygen Delivery Method Room Air Oxygen Flow Rate 2 Objective Labs Result Diagrams: 10/02/19 08:12 Assessment & Plan Assessment & Plan narrative: Pat Patient is admitted after surgery. Patient has been stable and progressing with physical therapy. Patient is neurovascularly intact on exam. Patient has no signs or symptoms of DVT. Patient's dressing is clean dry and intact. Will discharge to home once cleared by PT/OT
[2019-10-03 12:00] VITALS: BP 115/71; PULSE 94; RESP 12; TEMP 37.7
--- NOTE | 2019-10-03 14:08 | PC.NURSE ---
Moderate to severe pain to lower back with PO and IV Dilaudid; chronic numbness to L foot, with improved sensation to L Great Toe; balanced gait with fww and SBA to bathroom; Drsg to lower back dry and intact, shadow outlined in Sharpie; probably d/c this after pending PT approval
== END 2019-10-03 16:56 | disposition home or self-care (01) | DRG 454 ==
LOC: AC 10-02 12:13 → OR 10-02 12:21 → AC 10-02 12:21
PROVIDERS: Physician Assistant Surgical; Admitting Provider Orthopaedic Surgery Orthopaedic Surgery of the Spine; Referring Provider Orthopaedic Surgery Orthopaedic Surgery of the Spine; Visit Provider Orthopaedic Surgery Orthopaedic Surgery of the Spine
PROC: 0SG00AJ Fusion of Lumbar Vertebral Joint with Interbody Fusion Device, Posterior Approach, Anterior Column, Open Approach (ICD-10-PCS; principal; 2019-10-01 13:45)
DX: M51.16 Intervertebral disc disorders with radiculopathy, lumbar region (principal); Q79.61 Classical Ehlers-Danlos syndrome; M48.061 Spinal stenosis, lumbar region without neurogenic claudication; J45.909 Unspecified asthma, uncomplicated; F31.9 Bipolar disorder, unspecified; F41.9 Anxiety disorder, unspecified
CPT/HCPCS: 36415; 72100; 76000; 85027; 87635; 94640; 94762; 97116; 97161; 97165; 97530; 97535; C1776; C9290; J0330; J1100; J1170; J2060; J2250; J2405; J2704; J3010; J3410

== ENCOUNTER 2019-10-07 16:57 | Emergency (ER) | payer MEDICARE, SELFPAY ==
[2019-10-01 19:12] VITALS: BMI 31.8
[2019-10-07 17:09] VITALS: BP 114/71; PULSE 78; RESP 16; O2SAT 100; BMI 30.7
--- NOTE | 2019-10-07 17:53 | PC.NURSE ---
patient states before lumbar surgery she was taking PO dilaudid 8mg every [address] power changed it to every 4hours after surgery. pt states she went to [facility] last night and they gave her diluaded and demerol IV and that helped. pt states she did speak to the mail distribution scheme examiner surgeon who asked her to come in tomorrow but she states she can't wait.
--- NOTE | 2019-10-07 18:19 | ED.BACK ---
HPI - Back Pain/Injury General Chief Complaint: Back Pain/Injury Stated Complaint: recent surgery, not feeling so good Time Seen by Provider: 10/07/19 17:43 Source: patient Mode of arrival: Ambulatory Limitations: no limitations History of Present Illness HPI Narrative: 39-year-old female who recently underwent a multi level lumbar spinal surgery by orthopedic providers here at this hospital. Patient states she returns to the emergency department today because the 8 mg of Dilaudid that she is taking every 4 hours is not controlling her discomfort. She also has a prescription for oral ketamine however she states that she has not received this medication yet. She has a manufacturing engineer paint. Patient went to an outside facility last evening per her report where she states that she was told by the ER providers there that not much more could be done for her with regarding her pain medicine. States she has had some subjective fevers. No urinary symptoms. No change in any neurologic status to her lower extremities. Related Data Home Medications Medication Instructions Recorded Confirmed albuterol sulfate 2 puff INHALATION Q4-6H PRN 09/24/19 10/01/19 albuterol sulfate 2.5 mg INHALATION Q4-6H PRN 09/24/19 10/01/19 hydromorphone [Dilaudid] 8 mg PO QID PRN 09/24/19 10/01/19 ketamine 100 - 300 mg SUBLINGUAL DAILY PRN 09/24/19 10/01/19 MDD 300mg montelukast [Singulair] 10 mg PO BEDTIME 09/24/19 10/01/19 Previous Rx's Medication Instructions Recorded hydromorphone 8 mg PO Q4HR PRN #80 tab 10/03/19 Allergies Allergy/AdvReac Type Severity Reaction Status Date / Time erythromycin base Allergy Severe Hives, Verified 09/28/19 09:46 Shortness of breath lamotrigine [From Lamictal] Allergy Intermediate Hives Verified 09/28/19 09:46 ketorolac [From Toradol] Allergy Mild Hives, Verified 09/28/19 09:46 shortness of breath, mood swings Penicillins Allergy Mild Hives Verified 09/28/19 09:46 tramadol Allergy Mild Hives Verified 09/28/19 09:46 azithromycin Allergy Hives Verified 09/28/19 09:46 ciprofloxacin Allergy Hives Verified 09/28/19 09:46 prochlorperazine Allergy Verified 09/28/19 09:46 [From Compazine] adhesive tape AdvReac Severe Takes my Verified 09/28/19 09:46 skin off, paper/silk tape ok beclomethasone AdvReac Shortness Verified 09/28/19 09:46 of Breath citalopram AdvReac Tachycardia Verified 09/28/19 09:46 metoclopramide [From Reglan] AdvReac GI Verified 09/28/19 09:46 intolerance red meat AdvReac Severe Projectile Uncoded 09/28/19 09:46 vomiting Review of Systems Constitutional Constitutional: Denies headache(s) ENT Ears, Nose, Mouth, and Throat: Denies vertigo, Denies dizziness and Denies headache(s) Cardiovascular Cardiovascular: Denies chest pain Respiratory Respiratory: Denies cough Gastrointestinal Gastrointestinal: Denies abdominal pain Genitourinary Genitourinary: Denies dysuria Genitourinary: Denies dysuria Musculoskeletal Musculoskeletal: Reports back pain and Denies tingling Neurologic Neurologic: Denies vertigo, Denies dizziness, Denies headache(s) and Denies tingling Patient History Medical History Anemia (Acute) Anxiety (Acute) Asthma (Acute) Bipolar 1 disorder (Acute) Chronic pain disorder (Acute) Depression (Acute) Easy bruisability (Acute) Andreea-Danlos syndrome (Acute) Fragile skin (Acute) Hypokalemia (Acute) Hypotension (Acute) Kidney stones (Acute) Nerve damage (Acute) PTSD (post-traumatic stress disorder) (Acute) Seasonal allergies (Acute) Skin abnormalities (Acute) Spinal stenosis (Acute) Surgical History (Updated 09/24/19 @ 15:03 by Rashmi Chaudhry RN) History of hysterectomy (Acute) History of surgery (Acute 05/09/17) Hx of cholecystectomy (Acute) Hx of foot surgery (Acute) Hx of toe surgery (Acute 03/30/19) S/P cervical spinal fusion (Acute 2015) Social History household members: significant other Smoking Status: Never smoker alcohol intake: never Smoking Status: Never smoker Substance Use Type: marijuana Exam Initial Vital Signs Initial Vital Signs: Vital Signs Pulse Rate 78 10/07/19 17:09 Respiratory Rate 16 10/07/19 17:09 Blood Pressure 114/71 10/07/19 17:09 Pulse Oximetry 100 10/07/19 17:09 Const General: cooperative Limitations: mental status not altered HENMT Head: normal to inspection and normocephalic Resp Effort & Inspection: normal respiratory effort Cardio Rate: regular rate Skin Other: Surgical incision lower back covered with a clean dry intact bandage without surrounding erythema Extrem General: capillary refill normal Psych Appearance: grossly normal and well kempt Course Orders Ordered: Discontinued Medications Hydromorphone HCl (Dilaudid) 2 mg IM NOW ONE Stop: 10/07/19 18:21 Last Admin: 10/07/19 18:58 Dose: 2 mg Documented by: MMCFARL Hydromorphone HCl (Dilaudid) 1 mg IV NOW ONE Stop: 10/07/19 18:46 Last Admin: 10/07/19 18:58 Dose: Not Given Documented by: MMCFARL Vital Signs Vital signs: Vital Signs - 8 hr 10/07/19 17:09 10/07/19 19:32 10/07/19 19:33 Pulse Rate 78 75 75 Respiratory Rate 16 Blood Pressure 114/71 118/64 Pulse Oximetry 100 97 95 MDM - Back Pain/Injury MDM Narrative Medical decision making narrative: Patient's vital signs unremarkable. Is on more pain medication than what I would have ever prescribed out of the emergency department currently. She has a manufacturing engineer paint. Did discuss the case with Dr. Carrington who is on-call for orthopedics who stated that if we did not feel there was an emergent issue going on that the patient would most likely have to wait until tomorrow to talk with her operative surgeon to discuss further pain management issues. I did discuss this with the patient. Did inform her that unfortunately there was not much more we could do for her out of the emergency department. She was instructed to contact her operative providers office tomorrow for follow-up. She expressed understanding and agreement. Discharge Plan Departure Patient Disposition: Home Clinical Impression: Post-operative pain Discharge Date/Time: 10/07/19 19:40 Instructions: DI for Postoperative Pain Activity Restrictions/Additional Instructions: Unfortunately there is little that the emergency department can do for your postoperative pain. I do recommend that tomorrow you contact your operative surgeon to at least talk with his nurse. Also recommend that you contact your manufacturing engineer paint to get his/her opinion on the situation. Continue all of your medications as directed Prescriptions: No Action albuterol sulfate 2.5 mg /3 mL (0.083 %) Solution For Nebulization 2.5 mg INHALATION Q4-6H PRN (Reason: Asthma) RF: 0 montelukast [Singulair] 10 mg Tablet 10 mg PO BEDTIME RF: 0 albuterol sulfate 90 mcg/actuation Hfa Aerosol Inhaler 2 puff INHALATION Q4-6H PRN (Reason: Shortness Of Breath) RF: 0 hydromorphone [Dilaudid] 4 mg Tablet 8 mg PO QID PRN (Reason: Pain) RF: 0 ketamine 100 mg Herlinda 100 - 300 mg SUBLINGUAL DAILY MDD 300mg PRN (Reason: pain) RF: 0 hydromorphone 4 mg Tablet 8 mg PO Q4HR PRN (Reason: Pain, Severe (7-10)) Qty: 80 RF: 0
[2019-10-07] MEDS: HYDROMORPHONE 1 MG INJ 2 MG IM (18:58)
[2019-10-07 19:32] VITALS: PULSE 75; O2SAT 97
[2019-10-07 19:33] VITALS: BP 118/64; PULSE 75; O2SAT 95
== END 2019-10-07 19:40 | disposition home or self-care (01) ==
PROVIDERS: Emergency Provider Emergency Medicine
DX: G89.18 Other acute postprocedural pain (principal)
CPT/HCPCS: 96372; 99282; 99283; J1170

== ENCOUNTER 2019-11-10 15:26 | Observation (INO) | payer MEDICARE, SELFPAY ==
[2019-10-01 19:12] VITALS: BMI 31.8
[2019-11-10] VITALS (12 sets, daily range): BP systolic 115–141; BP diastolic 47–80; PULSE 80–94; RESP 12–18; TEMP 36.9–37.1; O2SAT 95–100; BMI 29.7
--- NOTE | 2019-11-10 16:02 | PC.NURSE ---
Patient stated in triage she is no longer getting any relief from her valium, cannabis or dilaudid. States last dilaudid 12mg po at 1400 today.
--- NOTE | 2019-11-10 18:00 | ED_ITS ---
HPI - Back Pain/Injury General Chief Complaint: Back Pain/Injury Stated Complaint: back and legs pain, nausea Time Seen by Provider: 11/10/19 17:59 Source: patient and family Mode of arrival: Wheelchair Limitations: no limitations History of Present Illness HPI Narrative: 39-year-old female nonsmoker with a history of either Danlos syndrome, asthma and extensive back surgeries presents with worsening pain. She had a lumbar fusion about 1 month ago and few days ago felt a pop in her back and has had increasing pain ever since. She denies any new neurologic symptoms such as loss of control of bowel or bladder, lower extremity weakness or footdrop. She denies any trauma and has had no fever or chills. She consulted with her pain doctor from [place] who encouraged her to return to her pre- surgical dosing of oral Dilaudid at 12 mg 3 times a day and is still not provided relief. She's had some N/V as well. She denies sore throat, cough, chest pain or other complaints. She has a video interview with her spine doctor on Tuesday. MD Complaint: back pain Onset (ago): day(s) Duration: constant Similar Symptoms Previously: Yes Location: lumbar spine Severity: severe Quality: sharp Radiation: left leg and right leg Severity scale (1-10): 10 Relieving factors: none Exacerbating factors: movement Related Data Home Medications Medication Instructions Recorded Confirmed albuterol sulfate 2 puff INHALATION Q4-6H PRN 09/24/19 11/10/19 albuterol sulfate 2.5 mg INHALATION Q4-6H PRN 09/24/19 11/10/19 hydromorphone [Dilaudid] See Rx Instructions .ROUTE 09/24/19 11/10/19 .COMPLEX PRN ketamine 100 - 300 mg SUBLINGUAL DAILY PRN 09/24/19 11/10/19 MDD 300mg montelukast [Singulair] 10 mg PO BEDTIME 09/24/19 11/10/19 Allergies Allergy/AdvReac Type Severity Reaction Status Date / Time erythromycin base Allergy Severe Hives, Verified 09/28/19 09:46 Shortness of breath lamotrigine [From Lamictal] Allergy Intermediate Hives Verified 09/28/19 09:46 ketorolac [From Toradol] Allergy Mild Hives, Verified 09/28/19 09:46 shortness of breath, mood swings Penicillins Allergy Mild Hives Verified 09/28/19 09:46 tramadol Allergy Mild Hives Verified 09/28/19 09:46 azithromycin Allergy Hives Verified 09/28/19 09:46 ciprofloxacin Allergy Hives Verified 09/28/19 09:46 prochlorperazine Allergy Verified 09/28/19 09:46 [From Compazine] adhesive tape AdvReac Severe Takes my Verified 09/28/19 09:46 skin off, paper/silk tape ok beclomethasone AdvReac Shortness Verified 09/28/19 09:46 of Breath citalopram AdvReac Tachycardia Verified 09/28/19 09:46 metoclopramide [From Reglan] AdvReac GI Verified 09/28/19 09:46 intolerance red meat AdvReac Severe Projectile Uncoded 09/28/19 09:46 vomiting Review of Systems Constitutional Constitutional: Denies chills, Denies fatigue, Denies fever(s), Denies frequent falls, Denies lethargy and Denies weakness Eyes Eyes: Denies change in vision, Denies eye discharge, Denies irritation and Denies loss of vision ENT Ears, Nose, Mouth, and Throat: Denies change in voice, Denies dizziness, Denies neck pain, Denies sore throat and Denies throat swelling Cardiovascular Cardiovascular: Denies chest pain, Denies irregular heart rhythm, Denies lightheadedness, Denies palpitations, Denies dyspnea, Denies dyspnea on exertion and Denies orthopnea Respiratory Respiratory: Denies cough, Denies dyspnea, Denies dyspnea on exertion and Denies wheezing Gastrointestinal Gastrointestinal: Denies abdominal pain, Denies change in bowel habits, Denies diarrhea, Reports nausea and Reports vomiting Musculoskeletal Musculoskeletal: Reports back pain, Denies neck pain and Denies numbness Integumentary/Breasts Skin/Breast: Denies pruritus, Denies erythema, Denies rash and Denies wounds Neurologic Neurologic: Denies behavioral changes, Denies confusion, Denies dizziness, Denies frequent falls, Denies loss of vision, Denies numbness and Denies weakness Psychiatric Psychiatric: Denies anxiety, Denies behavioral changes, Denies confusion, Denies depression, Denies homicidal ideation and Denies suicidal ideation Endocrine Endocrine: Denies fatigue, Denies flushing and Denies palpitations Hematologic/Lymphatic Hematologic/Lymphatic: Denies easy bruising Allergic/Immunologic Allergic/Immunologic: Denies urticaria, Denies throat swelling and Denies wheezing Patient History Medical History (Updated 11/11/19 @ 00:22 by Jose Eduardo Verdugo DO) Anemia (Acute) Anxiety (Acute) Asthma (Acute) Bipolar 1 disorder (Acute) Chronic pain disorder (Acute) Depression (Acute) Easy bruisability (Acute) Andreea-Danlos syndrome (Acute) Fragile skin (Acute) Hypokalemia (Acute) Hypotension (Acute) Kidney stones (Acute) Nerve damage (Acute) PTSD (post-traumatic stress disorder) (Acute) Seasonal allergies (Acute) Skin abnormalities (Acute) Spinal stenosis (Acute) TMJ derangement (Acute) Surgical History (Updated 11/10/19 @ 23:40 by ALICE Escobar) History of hysterectomy (Acute) History of lumbar fusion (Acute) History of surgery (Acute 05/09/17) Hx of cholecystectomy (Acute) Hx of foot surgery (Acute) Hx of toe surgery (Acute 03/30/19) S/P cervical spinal fusion (Acute 2016) Family History (Updated 11/10/19 @ 23:45 by ALICE Escobar) Father Smoker Mother History of ETOH abuse Brother Andreea-Danlos syndrome Sister Medical history unknown Social History household members: significant other Smoking Status: Never smoker alcohol intake: never Smoking Status: Never smoker alcohol intake frequency: 0-2 drinks per day Substance Use Type: marijuana Exam Narrative Exam Narrative: GENERAL: [39] year old patient appears stated age. Well-feli shed, well-developed patient, in mild distress. HEAD: Atraumatic. Normocephalic. EYES: Pupils equal round and reactive. Extraocular motions intact. No scleral icterus. No injection or drainage. ENT: Nose without bleeding, purulent drainage. Throat without erythema, tonsillar hypertrophy or exudate. Airway patent. NECK: Trachea midline. Non tender CARDIOVASCULAR: Regular rate and rhythm without murmurs, gallops, or rubs. RESPIRATORY: Clear to auscultation. Breath sounds equal bilaterally. No wheezes, rales, or rhonchi. GASTROINTESTINAL: Abdomen soft, non-tender, nondistended. EXTREMITIES: No edema or joint tenderness. BACK: Incisions appear clean, dry and intact. No obvious hematoma, redness or warmth. There is tender to palpation left of the incision. No saddle anesthesia. Bilateral lower extremity patellar reflexes 2+. Bilateral lower extremity strength 5 out of 5 NEURO: AOx3. SKIN: No rash or erythema of visible areas Initial Vital Signs Initial Vital Signs: Vital Signs Temperature 98.7 F 11/10/19 15:52 Pulse Rate 80 11/10/19 15:52 Respiratory Rate 12 11/10/19 15:52 Blood Pressure 141/80 H 11/10/19 15:52 Pulse Oximetry 97 11/10/19 15:52 Course Orders Ordered: ED Orders 11/10/19 20:55 Basic Metabolic Panel Stat Complete Blood Count AUTO DIFF Stat Acetaminophen (Tylenol) 975 mg PO Q8H RAJEEV Last Admin: 11/10/19 23:55 Dose: 975 mg Documented by: CAPRICE Al Hydrox/Mg Hydrox/Simethicone (Maalox Plus) 30 ml PO Q6HR PRN PRN Reason: Dyspepsia Albuterol (Ventolin Hfa (Vent/Covid R/O)) 2 puff INH Q4H PRN PRN Reason: Shortness Of Breath Albuterol (Ventolin) 2.5 mg INH Q4H PRN PRN Reason: Asthma Bisacodyl (Dulcolax) 10 mg MA DAILY PRN PRN Reason: Constipation Calcium Carbonate (Tums) 1,000 mg PO Q4HR PRN PRN Reason: Dyspepsia Diazepam (Valium) 5 mg PO Q8H PRN PRN Reason: Nausea Last Admin: 11/11/19 00:40 Dose: 5 mg Documented by: CAPRICE Docusate Sodium (Colace) 100 mg PO BID [facility] Enoxaparin Sodium (Lovenox) 40 mg SUBCUT DAILY [facility] Hydromorphone HCl (Dilaudid) 4 mg IV Q4HR PRN PRN Reason: Pain, Severe (7-10) Last Admin: 11/11/19 03:58 Dose: 4 mg Documented by: Admin: 11/11/19 00:01 Dose: 4 mg Documented by: CAPRICE Hydromorphone HCl (Dilaudid) 3 mg IV Q4HR PRN PRN Reason: Pain, Moderate (4-6) Sodium Chloride (Normal Saline 0.9%) 1,000 mls @ 50 mls/hr IV CONT RAJEEV Lidocaine (Lidoderm) 1 each TOP DAILY RAJEEV Last Admin: 11/11/19 00:10 Dose: 1 each Documented by: CAPRICE Naloxone HCl (Narcan) 0.2 mg IV Q2MIN PRN PRN Reason: Opiate Reversal Ondansetron HCl (Zofran) 4 mg IV Q4HR PRN PRN Reason: Nausea And Vomiting Last Admin: 11/11/19 00:10 Dose: 4 mg Documented by: CAPRICE Ondansetron HCl (Zofran) 4 mg IV Q4HR PRN PRN Reason: Nausea And Vomiting Pantoprazole Sodium (Protonix) 20 mg IV DAILY RAJEEV Last Admin: 11/10/19 23:58 Dose: 20 mg Documented by: CAPRICE Polyethylene Glycol (Miralax) 17 gm PO DAILY PRN PRN Reason: Constipation Sodium Biphosphate/Sodium Phosphate (Fleet Enema) 1 each MA PRN PRN PRN Reason: Constipation Discontinued Medications Hydromorphone HCl (Dilaudid) 2 mg IM NOW ONE Stop: 11/10/19 19:11 Last Admin: 11/10/19 19:39 Dose: 2 mg Documented by: NatalyZOARONIS Hydromorphone HCl (Dilaudid) 1 mg IM NOW ONE Stop: 11/10/19 19:35 Last Admin: 11/10/19 19:39 Dose: Not Given Documented by: ZZOUTIS Hydromorphone HCl (Dilaudid) 1 mg IV NOW ONE Stop: 11/10/19 20:35 Last Admin: 11/10/19 21:31 Dose: 1 mg Documented by: NatalyZOUTIS Hydromorphone HCl (Dilaudid) 2 mg IV NOW ONE Stop: 11/11/19 02:16 Last Admin: 11/11/19 02:26 Dose: 2 mg Documented by: CAPRICE Sodium Chloride (Normal Saline 0.9%) 1,000 mls @ 1,000 mls/hr IV BOLUS ONE Stop: 11/10/19 21:33 Last Admin: 11/10/19 21:24 Dose: 1,000 mls/hr Documented by: ALINA Ondansetron HCl (Zofran Odt) 4 mg SL NOW ONE Stop: 11/10/19 18:43 Last Admin: 11/10/19 19:00 Dose: 4 mg Documented by: ALINA Reevaluation(s) Reevaluation #1: demonstrates significant improvement after Dilaudid IM Consultations Consultation #1: Discussion with Orthopedics, no surgical need for admission but if required she may need to come in for pain control. Recommend considering the addition of Decadron Vital Signs Vital signs: Vital Signs - 8 hr 11/10/19 15:52 Temperature 98.7 F Pulse Rate 80 Respiratory Rate 12 Blood Pressure 141/80 H Pulse Oximetry 97 MDM - Back Pain/Injury Lab Data Result diagrams: 11/11/19 05:00 11/10/19 20:55 Labs: Lab Results 11/10/19 11/10/19 11/10/19 Range/Units 20:53 20:55 20:55 WBC 9.2 (4.5-11.0) X10^3/uL RBC 4.37 (4.0-5.2) X10^6/uL Hgb 14.4 (12.0-16.0) g/dL Hct 42.4 (36-46) % MCV 97.1 (80-100) fL MCH 33.0 (26-34) PG MCHC 34.0 (30-36) % RDW 13.4 (11.6-14.8) % Plt Count 235 (150-400) X10^3/uL Neut % (Auto) 66.2 (50-75) % Lymph % (Auto) 25.5 (25-40) % [place] % (Auto) 7.6 (3-14) % Eos % (Auto) 0.1 L (2-4) % Baso % (Auto) 0.6 (0-2) % Neut # (Auto) 6100 (8519-0835) /uL Lymph # (Auto) 2300 (4585-1181) /uL [place] # (Auto) 700 (0-900) /uL Eos # (Auto) 0 (0-450) /uL Baso # (Auto) 100 (0-100) /uL Sodium 137 (137-145) mmol/L Potassium 3.9 (3.4-5.1) mmol/L Chloride 103 (98-107) mmol/L Carbon Dioxide 26 (22-32) mmol/L BUN 8 (7-17) mg/dL Creatinine 0.49 L (0.52-1.04) mg/dL Estimated GFR > 60.0 (>60) mL/min BUN/Creatinine Ratio 16.3 (6-22) Glucose 100 (70-100) mg/dL Calcium 9.8 (8.4-10.2) mg/dL Total Bilirubin 0.5 (0.2-1.3) mg/dL Conjugated Bilirubin 0.0 (0.0-0.3) md/dL Unconjugated Bilirubin 0.4 (0.0-1.1) mg/dL AST 21 (14-36) IU/L ALT 16 (<35) IU/L Alkaline Phosphatase 87 (38-126) U/L Total Protein 6.5 (6.3-8.2) g/dL Albumin 4.1 (3.5-5.0) g/dL Globulin 2.4 (1.7-4.1) g/dL Albumin/Globulin Ratio 1.7 (1.0-2.8) Discharge Plan Departure Patient Disposition: Admitted as Observation Clinical Impression: Intractable back pain Vomiting Qualifiers: Vomiting type: unspecified Vomiting Intractability: non-intractable Nausea presence: with nausea Qualified Code(s): R11.2 - Nausea with vomiting, unspecified Discharge Date/Time: 11/10/19 22:30 Admit Date/Time: 11/10/19 21:48 Admit Provider: Dewey Whitt
--- NOTE | 2019-11-10 18:17 | DI.RAD.S_ITS ---
PROCEDURE: XR PELVIS 1-2V INDICATIONS: pain/popping in hips TECHNIQUE: 1 view(s) of the pelvis acquired. COMPARISON: None. FINDINGS: Bones: No fractures or dislocations. No suspicious bony lesions. L3-L4 so fusion surgery. Soft tissues: Visualized bowel gas pattern is normal. No suspicious soft tissue calcifications. IMPRESSION: No evidence acute bony abnormality of the pelvis. If clinical suspicion and/or symptoms persist, further assessment with repeat plain films, or advanced imaging (e.g., CT, MRI, or bone scan) may be helpful for further assessment. Dictated by: Jono Kelsey M.D. on 11/10/2019 at 20:06 Approved by: Jono Kelsey M.D. on 11/10/2019 at 20:07
--- NOTE | 2019-11-10 18:17 | DI.RAD.S_ITS ---
PROCEDURE: XR LUMBAR SPINE 2-3V INDICATIONS: severe lumbar pain s/p fusion TECHNIQUE: 3 views of the lumbar spine were acquired. COMPARISON: [facility], CR, XR LUMBAR SPINE 2-3V, 10/01/2019, 16:57. FINDINGS: Bones: 5 [id number] vertebrae are present. There is normal bony alignment. Posterior lateral glenn and pedicle screw fixation and interbody disc prosthesis material at L3-L4. No evidence of hardware failure or loosening. No vertebral body compression fractures. No suspicious bony lesions. Soft tissues: Overlying bowel gas pattern is normal. No suspicious soft tissue calcifications. IMPRESSION: Expected appearance post fusion at L3-L4. Dictated by: Jono Kelsey M.D. on 11/10/2019 at 20:04 Approved by: Jono Kelsey M.D. on 11/10/2019 at 20:05
[2019-11-10] MEDS: ONDANSETRON 4 MG ODT SL (19:00)
[2019-11-10] MEDS: HYDROMORPHONE 1 MG INJ 2 MG IM (19:39)
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
[2019-11-10 21:00] LABS: Add Manual Diff / Slide Review NO; Basophils Absolute Auto 100 /uL (0-100); Basophils Percent Auto 0.6 % (0-2); Eosinophils Absolute Auto 0 /uL (0-450); Eosinophils Percent Auto 0.1 % (2-4); Hematocrit 42.4 % (36-46); Hemoglobin 14.4 g/dL (12.0-16.0); Lymphocytes Absolute Auto 2300 /uL (1100-4500); Lymphocytes Percent Auto 25.5 % (25-40); Mean Corpuscular Volume 97.1 fL (80-100); Monocytes Absolute Auto 700 /uL (0-900); Monocytes Percent Auto 7.6 % (3-14); Neutrophils Absolute Auto 6100 /uL (1500-7000); Neutrophils Percent Auto 66.2 % (50-75); Platelet Count 235 X10^3/uL (150-400); Red Blood Cell Count 4.37 X10^6/uL (4.0-5.2); Red Cell Distribution Width 13.4 % (11.6-14.8); White Blood Cell Count 9.2 X10^3/uL (4.5-11.0)
[2019-11-10 21:10] LABS: BUN Creatinine Ratio 16.3 (6-22); Blood Urea Nitrogen 8 mg/dL (7-17); Calcium 9.8 mg/dL (8.4-10.2); Carbon Dioxide 26 mmol/L (22-32); Chloride 103 mmol/L (98-107); Estimated Glomerular Filt Rate > 60.0 mL/min (>60); Glucose 100 mg/dL (70-100); HEMOLYSIS < 15 (0-50); Potassium 3.9 mmol/L (3.4-5.1); Sodium 137 mmol/L (137-145)
[2019-11-10] MEDS: SODIUM CHLORIDE 0.9% 1,000 ML 1000 ML IV (21:24)
[2019-11-10] MEDS: HYDROMORPHONE 1 MG INJ IV (21:31)
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
[2019-11-10 22:39] LABS: Alanine Aminotransferase 16 IU/L (<35); Albumin 4.1 g/dL (3.5-5.0); Albumin Globulin Ratio 1.7 (1.0-2.8); Alkaline Phosphatase 87 U/L (38-126); Aspartate Aminotransferase 21 IU/L (14-36); Bilirubin Total 0.5 mg/dL (0.2-1.3); Bilirubin Unconjugated 0.4 mg/dL (0.0-1.1); Globulin 2.4 g/dL (1.7-4.1); HEMOLYSIS < 15 (0-50); Total Protein 6.5 g/dL (6.3-8.2)
--- NOTE | 2019-11-10 22:55 | P.HP_ITS ---
History of Present Illness History of Present Illness Date Patient Seen: 11/10/19 Time Patient Seen: 22:27 Chief complaint: back and legs pain, nausea Narrative: Ms. 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 The patient underwent a lumbar fusion by Dr. Ferraro on 10/01/2019 and states that 7-10 days ago she felt a pop in her back and has had worsening back pain since. The patient has spoken with Dr. Clement on-call for Dr. Warner as well as her pain management nurse practitioner Dr. Lewis Coronado at [facility] in [place] who recommended the patient increase her pain medication to her pre-surgery dosing of Dilaudid and 12 mg 3 times a day. She has augmented pain control with use of cannabis. The patient has increased her medications as ordered and subsequently developed nausea and has been able to keep medications down using are home regimen of Zofran. The patient reports her pain as isolated to the low back with no radiculopathy, no loss of bowel or bladder control and no saddle anesthesia. She reports no change in in sensation reporting decreased sensation bilateral lower extremities left greater than right that has been consistent since surgery . She reports occasional leg weakness where she feels her legs are going to give out was able to catch herself and has sustained no falls or trauma. She has occasional right arm numbness related to ongoing cervical issues status post cervical fusion. She reports her pain is improved with IV medication provided in the ER as well as her nausea with IV Zofran. She reports no complaints of recent illness, fevers or chills and no known COVID-19 exposures. She reports frequent headaches which she attributes to her chronic cervical problems. She reports no nasal congestion or sore throat, she does have a chronically dislocated left TMJ making it difficult to chew but has no difficulty swallow ing. She denies complaints of chest pain or palpitations but will have chest tightness and cough in the morning secondary to asthma for which she uses her inhaler several times per week. She denies shortness of breath at this time. Denies complaints of epigastric or abdominal pain. Her nausea vomiting are controlled with IV Zofran. She reports irregular bowel movements on high-dose opiates and uses gummy fiber daily with stool softener with good effect. Her last bowel movement was earlier today. She is no longer menstruating and is status post hysterectomy. Upon arrival to the ER the patient has a temperature 98.7?, heart rate of 80, blood pressure 141/80, respirations of 12 saturating 97% on room air. Imaging is obtained with x-ray of the pelvis which finds no acute bony abnormalities. X-ray of the lumbar spine is read as expected appearance of an L3-4 fusion. On laboratory analysis the patient has white count of 9.2 with no shift, hemoglobin of 14.4, hematocrit of 42.4 and platelets of 235. On chemistry her electrolytes are within normal range and has a BUN of 8 creatinine of 0.49. Her nonfasting glucose is 100. Your provider contacted Dr. Clement and reviewed the patient's case. Patient is admitted to the medicine service for acute intractable lumbar spine pain in the setting of chronic back pain status post lumbar surgery. Patient History Medical History (Updated 11/10/19 @ 23:40 by ALICE Escobar) Anemia (Acute) Anxiety (Acute) Asthma (Acute) Bipolar 1 disorder (Acute) Chronic pain disorder (Acute) Depression (Acute) Easy bruisability (Acute) Andreea-Danlos syndrome (Acute) Fragile skin (Acute) Hypokalemia (Acute) Hypotension (Acute) Kidney stones (Acute) Nerve damage (Acute) PTSD (post-traumatic stress disorder) (Acute) Seasonal allergies (Acute) Skin abnormalities (Acute) Spinal stenosis (Acute) TMJ derangement (Acute) Surgical History (Updated 11/10/19 @ 23:40 by ALICE Escobar) History of hysterectomy (Acute) History of lumbar fusion (Acute) History of surgery (Acute 05/09/17) Hx of cholecystectomy (Acute) Hx of foot surgery (Acute) Hx of toe surgery (Acute 03/30/19) S/P cervical spinal fusion (Acute 2015) Family & Social History Family History (Updated 11/10/19 @ 23:45 by ALICE Escobar) Father Smoker Mother History of ETOH abuse Brother Andreea-Danlos syndrome Sister Medical history unknown Social History: household members significant other Safety & Behavioral: Feels Safe in Current Yes Environment Been Physically Hurt or No Threatened By a Person Tobacco & Substance use: Tobacco type cannabis/marijuana Smoking Status Never smoker alcohol intake never alcohol intake frequency 0-2 drinks per day Substance Use Type marijuana Meds Home Medications and Allergies Home Medications Medication Instructions Recorded Confirmed Type albuterol sulfate 2 puff INHALATION Q4-6H PRN 09/24/19 10/01/19 History albuterol sulfate 2.5 mg INHALATION Q4-6H PRN 09/24/19 11/10/19 History hydromorphone [Dilaudid] 8 mg PO QID PRN 09/24/19 10/01/19 History ketamine 100 - 300 mg SUBLINGUAL DAILY PRN 09/24/19 10/01/19 History MDD 300mg montelukast [Singulair] 10 mg PO BEDTIME 09/24/19 10/01/19 History Allergies Allergy/AdvReac Type Severity Reaction Status Date / Time erythromycin base Allergy Severe Hives, Verified 09/28/19 09:46 Shortness of breath lamotrigine [From Lamictal] Allergy Intermediate Hives Verified 09/28/19 09:46 ketorolac [From Toradol] Allergy Mild Hives, Verified 09/28/19 09:46 shortness of breath, mood swings Penicillins Allergy Mild Hives Verified 09/28/19 09:46 tramadol Allergy Mild Hives Verified 09/28/19 09:46 azithromycin Allergy Hives Verified 09/28/19 09:46 ciprofloxacin Allergy Hives Verified 09/28/19 09:46 prochlorperazine Allergy Verified 09/28/19 09:46 [From Compazine] adhesive tape AdvReac Severe Takes my Verified 09/28/19 09:46 skin off, paper/silk tape ok beclomethasone AdvReac Shortness Verified 09/28/19 09:46 of Breath citalopram AdvReac Tachycardia Verified 09/28/19 09:46 metoclopramide [From Reglan] AdvReac GI Verified 09/28/19 09:46 intolerance red meat AdvReac Severe Projectile Uncoded 09/28/19 09:46 vomiting Review of Systems Review of Systems ROS: Yes All systems reviewed with the patient and are negative except as otherwise documented Exam Vital Signs (past 8 hours): - 11/10/19 15:52 11/10/19 17:29 11/10/19 17:30 Temperature 98.7 F Pulse Rate 80 90 89 Respiratory Rate 12 Blood Pressure 141/80 H Pulse Oximetry 97 100 100 11/10/19 17:31 11/10/19 18:00 11/10/19 18:30 Temperature Pulse Rate 89 84 93 H Respiratory Rate Blood Pressure 123/63 124/57 L 115/56 L Pulse Oximetry 100 97 99 11/10/19 19:42 11/10/19 20:00 11/10/19 20:30 Temperature Pulse Rate 93 H 86 94 H Respiratory Rate Blood Pressure Pulse Oximetry 95 95 96 11/10/19 21:00 11/10/19 21:30 Temperature Pulse Rate 88 94 H Respiratory Rate Blood Pressure Pulse Oximetry 95 97 Oxygen Delivery Method Room Air Narrative Exam Narrative: GENERAL APPEARANCE: well developed, well nourished, alert and conversant, in no acute distress. HEENT: Normocephalic, PERRLA, conjunctiva clear, EOMs intact without nystagmus, no sinus tenderness to percussion, no rhinorrhea, left TMJ is hypermobile in dislocates, mucous membranes are moist and pink without lesions or exudate. NECK/THYROID: Diminished range of motion, no JVD, no thyromegaly, trachea midline. LYMPH NODES: no cervical or supraclavicular lymphadenopathy. SKIN: Geraldine, warm and dry, soft and smooth, no visible lesions, rashes, ulcerations or petechiae. HEART: regular rate and rhythm, S1-S2, no murmur appreciated, no rubs or gallops, brisk capillary refill, no edema LUNGS: clear to auscultation bilaterally, no coarseness crackles or wheezing, no cough present CHEST: Symmetrical movement, left chest wall pain on palpation without crepitus or bruising, no accessory muscle use, good tidal volume. ABDOMEN: Soft, no distention, no abdominal tenderness, no guarding or peritoneal signs, no organomegaly, no flank or suprapubic tenderness, active bowel tones. BACK: Lumbar pain to palpation, lumbar pain with left straight leg raise. EXTREMITIES: moves all extremities, strength is 4/5 and symmetrical, diminished strength in dorsi-plantar flexion bilaterally, 2+ patellar reflexes bilaterally. NEUROLOGIC: AAO x4, no focal neurologic deficits, cranial nerves II-XII grossly intact, diminished sensation bilateral lower extremities left greater than right, hearing grossly normal to speech. PSYCH: Good judgment, good eye contact, linear thought process, cooperative, appropriate with stable behavior Objective Labs Result Diagrams: 11/10/19 20:55 11/10/19 20:55 Labs: Laboratory Results - last 24 hr 11/10/19 11/10/19 11/10/19 20:53 20:55 20:55 WBC 9.2 RBC 4.37 Hgb 14.4 Hct 42.4 MCV 97.1 MCH 33.0 MCHC 34.0 RDW 13.4 Plt Count 235 Neut % (Auto) 66.2 Lymph % (Auto) 25.5 [place] % (Auto) 7.6 Eos % (Auto) 0.1 L Baso % (Auto) 0.6 Neut # (Auto) 6100 Lymph # (Auto) 2300 [place] # (Auto) 700 Eos # (Auto) 0 Baso # (Auto) 100 Sodium 137 Potassium 3.9 Chloride 103 Carbon Dioxide 26 BUN 8 Creatinine 0.49 L Estimated GFR > 60.0 BUN/Creatinine Ratio 16.3 Glucose 100 Calcium 9.8 Total Bilirubin 0.5 Conjugated Bilirubin 0.0 Unconjugated Bilirubin 0.4 AST 21 ALT 16 Alkaline Phosphatase 87 Total Protein 6.5 Albumin 4.1 Globulin 2.4 Albumin/Globulin Ratio 1.7 Assessment & Plan Assessment & Plan narrative: This is a 39-year-old female with history of chronic lumbar spine pain approximately 6 weeks status post L3-4 lumbar fusion who experienced a nontraumatic acute onset of pain feeling a pop in her back developing intractable pain she unable to control on home medications related to nausea vomiting. Patient is admitted for pain management. 1. Acute exacerbation of chronic lumbar back pain, status post lumbar fusion L3- 4, present on admission, active. -patient has been in contact with her pain management provider Dr. Coronado, [facility], instructed the patient increase her oral Dilaudid to 12 mg 3 times daily. -the patient subsequently developed nausea and vomiting unresponsive to oral films of ondansetron, was unable to keep pain medication down. Pain is located in the lower back without radiation or radiculopathy. -in the ER the patient received 4 mg of IV Dilaudid within approximately 1 hour with marked improvement in pain. -ordered delighted 3 mg for moderate pain, 4 mg for severe pain IV every 4 hours as needed for pain, a reduced dose from her oral regimen in line with her postoperative dosing. -ordered lidocaine patch daily. -ordered Zofran 4 mg every 4 hours as needed, patient is allergic to Compazine and Reglan. -ordered diazepam 5 mg orally every 8 hours as adjunct for muscle spasms, pain and nausea management. -patient's for failed prior trigger trials of amitriptyline, nortriptyline, Lyrica and gabapentin due to side effects. -have requested physical therapy to consult evaluate and treat. 2. Chronic opiate dependence, chronic pain syndrome under pain management, present on admission, active. -patient has been on chronic high-dose Dilaudid and is under the care of pain management. -the patient's pain is adequately controlled with 4 mg IV Dilaudid, will proceed with a reduced dose regimen consistent with her previous regimen which was 6-8 mg of Dilaudid 3 times a day. 3. Andreea Danlos syndrome, chronic, stable. -patient has been under the care of rheumatology and diagnosed with Andreea- Danlos classic subtype. -patient manifests joint hypermobility an fragile skin. She has undergone echocardiogram the results of which are not available for review, no murmurs appreciated on exam. -Patient does have left chest wall pain on palpation pain is nonpleuritic without crepitus. There is no history of trauma or significant findings on chest x-ray. -requested but occupational physical therapy to consult evaluate and treat. 4. Mild persistent asthma, chronic, stable -patient reports tightness in her chest in the mornings relieved with albuterol treatments. She uses are albuterol inhaler more than 3 times per week. She states she has been previously on Advair. -no wheezing is appreciated on exam. -will continue home regimen of albuterol inhaler 2 puffs and/or albuterol nebulizer every 4-6 hours as needed. -requested respiratory therapy to consult evaluate and treat. 5. Bipolar 1 disorder, chronic, stable -patient presents with stable affect and mood, she denies anxiety or depression. -the patient takes no routine medication. VTE prophylaxis: Bilateral SCDs, Lovenox. IV fluids: Normal saline 50 cc/hour Diet: Regular diet mechanical soft. Code status: Full code, she takes in the eights her life partner Robert to be he r surrogate decision maker. The patient is admitted to the hospital due to acute intractable pain in the setting of chronic lumbar spine pain status post lumbar fusion. The patient is admitted as observation status for pain management with expected length of stay to be less than 2 midnights. Scores GCS Gladys coma scale eye opening: Spontaneous [place] coma scale verbal response: Orientated [place] coma scale motor response: Obey commands Gladys coma scale total score: 15
[2019-11-10] MEDS: ACETAMINOPHEN 325 MG TABLET 975 MG PO (23:55)
--- NOTE | 2019-11-10 23:56 | PC.NURSE ---
2200 Pt to room 223 from E.R. via stretcher. Able to move self into bed. States nausea resolved. States back pain and hip pain 6/10 with goal of 4/10. Reports diminished sensation and weakness LLE. ALICE Whitt in to see patient. One assist to bathroom to void. Covid swab obtained and sent to lab with pt on isolation precautions pending results. Pt reports has had multiple negative tests. Pt's own dilaudid given to NOC material crew supervisorSandra with pt's knowledge and consent for safe keeping. Pt's wallet secured in safe with co-signature by NOC IRVING Montez. Melida resumes care at this time.
[2019-11-10] MEDS: PANTOPRAZOLE 40 MG VIAL 20 MG IV (23:58)
[2019-11-11] MEDS: HYDROMORPHONE 1 MG INJ 4 MG IV ×3 (00:01→08:02)
[2019-11-11] MEDS: ONDANSETRON 4 MG/2 ML INJ IV (00:10)
[2019-11-11] MEDS: LIDOCAINE PATCH 1 EACH ADH..PATCH TOP (00:10)
[2019-11-11 00:28] VITALS: PULSE 71; RESP 16; O2SAT 97
[2019-11-11] MEDS: diazePAM 5 MG TABLET PO ×2 (00:40→08:01)
[2019-11-11 00:46] LABS: COVID19 -Nasal RAPID Negative (Negative)
[2019-11-11] MEDS: HYDROMORPHONE 2 MG INJ IV ×2 (02:26→13:37)
[2019-11-11 03:00] VITALS: BP 117/70; PULSE 70; RESP 18; TEMP 36.5; O2SAT 97
[2019-11-11 05:33] LABS: Add Manual Diff / Slide Review NO; Basophils Absolute Auto 0 /uL (0-100); Basophils Percent Auto 0.6 % (0-2); Eosinophils Absolute Auto 100 /uL (0-450); Eosinophils Percent Auto 1.9 % (2-4); Hematocrit 37.6 % (36-46); Hemoglobin 12.4 g/dL (12.0-16.0); Lymphocytes Absolute Auto 3100 /uL (1100-4500); Lymphocytes Percent Auto 45.6 % (25-40); Mean Corpuscular HGB Conc 33.1 % (30-36); Mean Corpuscular Hemoglobin 32.4 PG (26-34); Monocytes Absolute Auto 700 /uL (0-900); Monocytes Percent Auto 9.9 % (3-14); Neutrophils Absolute Auto 2900 /uL (1500-7000); Platelet Count 201 X10^3/uL (150-400); Red Blood Cell Count 3.84 X10^6/uL (4.0-5.2); Red Cell Distribution Width 13.2 % (11.6-14.8); White Blood Cell Count 6.9 X10^3/uL (4.5-11.0)
[2019-11-11 05:53] LABS: Blood Urea Nitrogen 9 mg/dL (7-17); Calcium 8.8 mg/dL (8.4-10.2); Carbon Dioxide 27 mmol/L (22-32); Chloride 104 mmol/L (98-107); Estimated Glomerular Filt Rate > 60.0 mL/min (>60); Glucose 95 mg/dL (70-100); HEMOLYSIS < 15 (0-50); Potassium 3.7 mmol/L (3.4-5.1); Sodium 136 mmol/L (137-145)
[2019-11-11] MEDS: ACETAMINOPHEN 325 MG TABLET 975 MG PO ×2 (06:05→13:37)
[2019-11-11 07:53] VITALS: PULSE 80; RESP 18; O2SAT 96
[2019-11-11] MEDS: SODIUM CHLORIDE 0.9% 1,000 ML 50 ML IV (07:59)
[2019-11-11] MEDS: ENOXAPARIN 40 MG/0.4 ML SYRINGE SUBCUT (08:01)
[2019-11-11] MEDS: PANTOPRAZOLE 40 MG VIAL 20 MG IV (08:01)
[2019-11-11] MEDS: DOCUSATE 100 MG CAPSULE PO (08:02)
[2019-11-11 08:30] VITALS: BP 116/67; PULSE 74; RESP 16; TEMP 36.6; O2SAT 98
--- NOTE | 2019-11-11 09:19 | CM.DANOTE ---
DCP: Case received, EMR reviewed and met with patient. Introduced self and role. Was able to obtain information from patient regarding her baseline activity level and living situation, prior to hospitalization. DCP assessment completed with information currently available. Patient is a 39 year old female who admitted yesterday evening to the care of the hospitalist team. PCP: Dr. Gongora at [facility]. Payer: confirmed: Medicare. Patient came to the hospital via private vehicle secondary to her having increased back pain, as well as nausea and vomiting. Patient had recent surgery here in September with Dr. Warner for a lumbar fusion. Patient has history of Danlos Syndrome, as well as asthma. She has chronic pain, due to her disease. Patient is aware of her disease process, she has done extensive research. 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 Patient sees a pain doctor at [facility] in [place]. She stated that it is more like a health and wellness clinic. She also has depression secondary to her pain, where she gets treated with catemine treatments. She resides in [place] with her life partner, Robert Hawley. She stated, he is very supportive. She also has support groups available if needed, that she can reach out to, regarding her pain, and disease process. She does not drive, and uses a four wheel walker when going out. She is here for pain control. P: DCP to continue to follow. Patient should be able to go home once her pain is under control. Brenda Zamora RN/Automation Controls Specialist
--- NOTE | 2019-11-11 09:44 | P.CONS_ITS ---
History of Present Illness Consult details Date Patient Seen: 11/11/19 Time Patient Seen: 09:44 Chief complaint: back and legs pain, nausea Reason for consult: Back pain Requesting provider: Jose Eduardo Verdugo Narrative: Miss Charles is a 39-year-old female with a history of EDS, and chronic back pain. She had a L3-[address] Warner on 10/01/2019. 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 At her last postoperative visit with Dr. Warner she had been released back to her paint striping machine operator. She states that she has noted some instances of popping in her back and increasing back pain. This came to a head starting in the last few days. Earlier today she contacted her paint striping machine operator to increase her pain medication-this was okayed. She took the higher doses but was not getting pain relief. She presented to [facility] ER. On presentation she was noted to have nausea and vomiting and was unable to keep any medications down. She was admitted for nausea and vomiting and back pain once she got some IV medications in the ER her back pain did improve. She had x-rays in the ER that demonstrated stable alignment of her L3-4 fusion. Incisions were well healed and non concerning. Motor and sensation intact. She does have a multiple concerns regarding her back and cervical spine as well as for general EDS pain. But endorses no acute trauma. Denies fevers denies chills endorses nausea and vomiting. Denies numbness or tingling. Denies saddle anesthesia. Denies any urinary or bowel incontinence. Meds Home Medications and Allergies Home Medications Medication Instructions Recorded Confirmed Type albuterol sulfate 2 puff INHALATION Q4-6H PRN 09/24/19 11/10/19 History albuterol sulfate 2.5 mg INHALATION Q4-6H PRN 09/24/19 11/10/19 History hydromorphone [Dilaudid] See Rx Instructions .ROUTE 09/24/19 11/10/19 History .COMPLEX PRN ketamine 100 - 300 mg SUBLINGUAL DAILY PRN 09/24/19 11/10/19 History MDD 300mg montelukast [Singulair] 10 mg PO BEDTIME 09/24/19 11/10/19 History Allergies Allergy/AdvReac Type Severity Reaction Status Date / Time erythromycin base Allergy Severe Hives, Verified 09/28/19 09:46 Shortness of breath lamotrigine [From Lamictal] Allergy Intermediate Hives Verified 09/28/19 09:46 ketorolac [From Toradol] Allergy Mild Hives, Verified 09/28/19 09:46 shortness of breath, mood swings Penicillins Allergy Mild Hives Verified 09/28/19 09:46 tramadol Allergy Mild Hives Verified 09/28/19 09:46 azithromycin Allergy Hives Verified 09/28/19 09:46 ciprofloxacin Allergy Hives Verified 09/28/19 09:46 prochlorperazine Allergy Verified 09/28/19 09:46 [From Compazine] adhesive tape AdvReac Severe Takes my Verified 09/28/19 09:46 skin off, paper/silk tape ok beclomethasone AdvReac Shortness Verified 09/28/19 09:46 of Breath citalopram AdvReac Tachycardia Verified 09/28/19 09:46 metoclopramide [From Reglan] AdvReac GI Verified 09/28/19 09:46 intolerance red meat AdvReac Severe Projectile Uncoded 09/28/19 09:46 vomiting Review of Systems Gastrointestinal Gastrointestinal: Reports nausea and Reports vomiting Musculoskeletal Musculoskeletal: Reports back pain, Reports limited range of motion and Reports stiffness Exam Vital Signs (past 8 hours): - 11/11/19 03:00 11/11/19 07:53 11/11/19 08:30 Temperature 97.7 F 97.9 F Pulse Rate 70 80 74 Respiratory Rate 18 18 16 Blood Pressure 117/70 116/67 Pulse Oximetry 97 96 98 Oxygen Delivery Method Room Air Oxygen Flow Rate 0 Narrative Exam Narrative: General exam is alert and oriented female no acute distress lying in bed but sits up and moves without limitations HEENT exam normocephalic atraumatic Respiratory exam unlabored on room air CV exam regular rate rhythm Back exam: Incisions are well healed scars. No erythema no dehiscence no drainage no swelling. It has mild paraspinal tenderness. No step-offs. Demons trates 5/5 dorsiflexion plantar flexion. Sensation grossly intact and equal bilaterally. Calves are soft. Notes patient moves easily in bed and rolls over without assistance. Objective Imaging X-ray lumbar spine: My impression: Two views AP and lateral lumbar spine demonstrate stable appearance of L3-L4 fusion with expected and unchanged alignment of hardware. No evidence of acute trauma. Radiologist's impression: IMPRESSION: Expected appearance post fusion at L3-L4. Dictated by: Jono Kelsey M.D. on 11/10/2019 at 20:04 Approved by: Jono Kelsey M.D. on 11/10/2019 at 20:05 Labs Result Diagrams: 11/11/19 05:00 11/11/19 05:00 Labs: Laboratory Results - last 24 hr 11/10/19 11/10/19 11/10/19 20:53 20:55 20:55 WBC 9.2 RBC 4.37 Hgb 14.4 Hct 42.4 MCV 97.1 MCH 33.0 MCHC 34.0 RDW 13.4 Plt Count 235 Neut % (Auto) 66.2 Lymph % (Auto) 25.5 [place] % (Auto) 7.6 Eos % (Auto) 0.1 L Baso % (Auto) 0.6 Neut # (Auto) 6100 Lymph # (Auto) 2300 [place] # (Auto) 700 Eos # (Auto) 0 Baso # (Auto) 100 Sodium 137 Potassium 3.9 Chloride 103 Carbon Dioxide 26 BUN 8 Creatinine 0.49 L Estimated GFR > 60.0 BUN/Creatinine Ratio 16.3 Glucose 100 Calcium 9.8 Total Bilirubin 0.5 Conjugated Bilirubin 0.0 Unconjugated Bilirubin 0.4 AST 21 ALT 16 Alkaline Phosphatase 87 Total Protein 6.5 Albumin 4.1 Globulin 2.4 Albumin/Globulin Ratio 1.7 COVID-19 PCR 11/10/19 11/11/19 11/11/19 23:15 05:00 05:00 WBC 6.9 RBC 3.84 L Hgb 12.4 Hct 37.6 MCV 98.0 MCH 32.4 MCHC 33.1 RDW 13.2 Plt Count 201 Neut % (Auto) 42.0 L D Lymph % (Auto) 45.6 H D [place] % (Auto) 9.9 Eos % (Auto) 1.9 L Baso % (Auto) 0.6 Neut # (Auto) 2900 Lymph # (Auto) 3100 [place] # (Auto) 700 Eos # (Auto) 100 Baso # (Auto) 0 Sodium 136 L Potassium 3.7 Chloride 104 Carbon Dioxide 27 BUN 9 Creatinine 0.53 Estimated GFR > 60.0 BUN/Creatinine Ratio 17.0 Glucose 95 Calcium 8.8 Total Bilirubin Conjugated Bilirubin Unconjugated Bilirubin AST ALT Alkaline Phosphatase Total Protein Albumin Globulin Albumin/Globulin Ratio COVID-19 PCR Negative Assessment & Plan Assessment and plan (1) Intractable back pain: Problem details: Six weeks status post L3-L4 fusion. Stable/expected appearance of fusion. Clinical appearance of incision is well healed. Patient has chronic pain at baseline with the complex medical problems and a long history of narcotic pain medication requirements. No signs of infection or hardware failure. Once acute nausea and vomiting are under control bridge back to tolerable oral regiment and discharge home per medical team a and back to the care of her pain management physician. Patient does have a video [email or web address] health appointment with Dr. Warner this week. Status: Acute (2) Vomiting: Problem details: Nausea and vomiting. Uses Zofran at home on a regular basis. Had increased vomiting was unable to keep down pain medication. Seems to have improved after IV administration. Patient states she was able to tolerate some breakfast this morning. And has not vomited this morning. Qualifiers: Nausea presence: with nausea Vomiting Intractability: non-intractable Vomiting type: unspecified Qualified Code(s): R11.2 - Nausea with vomiting, unspecified Status: Acute Time Spent With Patient Time with patient: less than 15 minutes
--- NOTE | 2019-11-11 10:48 | PT.IIE ---
Current Diagnoses Dorsalgia, unspecified (11/10/19) Nausea with vomiting, unspecified (11/10/19) Surgical History (Last Reviewed 11/11/19 @ 09:50 by Christa Clement MD) History of hysterectomy (Acute) History of lumbar fusion (Acute) History of surgery (Acute 05/09/17) Hx of cholecystectomy (Acute) Hx of foot surgery (Acute) Hx of toe surgery (Acute 03/30/19) S/P cervical spinal fusion (Acute 2016) Medical History (Last Reviewed 11/11/19 @ 09:50 by Christa Clement MD) Anemia (Acute) Anxiety (Acute) Asthma (Acute) Bipolar 1 disorder (Acute) Chronic pain disorder (Acute) Depression (Acute) Easy bruisability (Acute) Andreea-Danlos syndrome (Acute) Fragile skin (Acute) Hypokalemia (Acute) Hypotension (Acute) Kidney stones (Acute) Nerve damage (Acute) PTSD (post-traumatic stress disorder) (Acute) Seasonal allergies (Acute) Skin abnormalities (Acute) Spinal stenosis (Acute) TMJ derangement (Acute) Physical Therapy Inpatient Evaluation/Re-Eval M1 PT/OT-IP Prior Functional Status Start: 11/11/19 08:36 Freq: NEEDED Status: Active Protocol: Document 11/11/19 10:28 AW (Rec: 11/11/19 10:48 AW [id number]) Medical Review Prior Functional Status Medical History Reviewed Yes Communication WNL. Pt is an effective verbal communicator Mobility and Gait Pt is an independent household ambulator. Outside the home, she uses a 4WW or smart crutches due to weakness. She used to use a lumbar brace during mobility but it has not been comfortable for her since her lumbar surgery on 10/01/19. Pt has diagnosis of Andreea Danlos syndrome. Activities of Daily Living and IADL's IND though pt admits to recent difficulty donning shoes and socks on bad days. Her boyfriend assists when needed. Her boyfriend also provides SBA for showers occasionally. Social History Household Members significant other Living Arrangements House Number of Floors (Floors) One Floor Number of Stairs To Enter/Railing? ramped entry Home Environment High Toilet,Walk in Shower, Ramp Home Equipment Four Wheel Walker,Crutches, Shower Seat with Backrest,Hand Held Shower,Hospital Bed,Grab Bars Near Toilet,Grab Bars In Shower Additional Social History Comment Pt lives with her boyfriend who works overnight shifts. She had a friend staying with her to assist after surgery, but the friend has returned to [place]. M2 PT-IP Current Condition Start: 11/11/19 08:36 Freq: NEEDED Status: Active Protocol: Document 11/11/19 10:28 AW (Rec: 11/11/19 10:48 AW [id number]) Physical Therapy Current Condition Current Condition Evaluation Date 11/11/19 Treatment Diagnosis acute on chronic back pain; difficulty in walking Onset Date 11/10/19 Precautions Lumbar Precautions Log Roll,No Twisting,Limit Bending,Lifting Restriction of 10 lbs,Gait Belt above Incisional Area M3 PT-IP Subjective Start: 11/11/19 08:36 Freq: NEEDED Status: Active Protocol: Document 11/11/19 10:28 AW (Rec: 11/11/19 10:48 AW [id number]) Subjective Physical Therapy Visit Type Type Initial Evaluation Visit Start Time 09:27 Visit Stop Time 09:52 Total Visit Minutes 25 Physical Therapy Visit Comments Patient Comments Pt is willing to participate with PT Therapy Pain Assessment Pain When Pain Assessed During Mobility Pain Present Pain Present Pain Reported Location Back Intensity 5 Scale Used Numeric (0 - 10) Pain Management Techniques Re-positioning,Timing of Activity with Medications M4 PT-IP Mobility and Gait Start: 11/11/19 08:36 Freq: NEEDED Status: Active Protocol: Document 11/11/19 10:28 AW (Rec: 11/11/19 10:48 AW [id number]) PT-Bed Mobility Assessment Rolling Type of Rolling Log Rolling,Roll to Right Level of Assist Independent Supine to Sit Supine to Sit Independent Sit to Supine Sit to Supine Independent Scooting Scooting to Edge of Bed Independent Scooting Up and Down in Bed Independent PT-Transfer Assessment Sit to and From Stand Sit to and from Stand Independent Equipment Transfer Assistive Device Gait Belt,Front Wheeled Walker Orthotic/Prosthetic Devices or Brace: No Transfers Transfer Destination Bed Transfer Technique pt ambulated with FWW Transfer Ability Level of Assist Independent Comments Mobility Comments Pt was lying in bed upon PT arrival. BP supine was 111/74 HR 71. Pt rolled both directions independently for surgical wound assessment and for bed mobility without assist. She also completed SL to sit IND. Pt was able to sit EOB with and without UE support for BLE strength assessment and then stood with FWW IND. She ambulated a total of 200 feet SBA with FWW before returning to the room and transferring back to the bed IND. Pt was positioned with call light and all needs within reach. Gait Assessment Gait Gait Assistance Required: Standby Assistance Distance (Feet) 200 Assistive Devices Assistive Device Gait Belt,Front Wheeled Walker Orthotic/Prosthetic Devices or Brace: No Gait Deviations General Gait Pattern Antalgic,Decreased Stride Length,Decreased Feet Clearance,Flexed Trunk,Narrow Based Gait Factors Limiting Gait Function Factors Limiting Gait Function Decreased Activity Tolerance, Decreased Sensation,Decreased Strength,Incoordination, Limited Range of Motion,Pain, Poor Balance,Poor Safety Awareness Comments Gait Comments Gait was characterized by NBOS and excessive adduction (R>L) . Pt required cues to widen her SHERRIE. She was able to correct for several strides but would then return to near- scissoring gait. Pt had no apparent LOB. Stair Climbing Assessment Comments Stair Climbing Comments Not assessed. Pt has ramped entry. PT-Balance Assessment Sitting Balance and Reactions Static Sitting Balance Ability Normal Standing Balance and Reactions Static Standing Balance Ability Good Dynamic Standing Balance Ability Good Device Used FWW M5 PT-IP Objective Assessments Start: 11/11/19 08:36 Freq: NEEDED Status: Active Protocol: Document 11/11/19 10:28 AW (Rec: 11/11/19 10:48 AW [id number]) Orientation Orientation/Cognition Level of Alertness Alert Orientation Name,Day of Week,Place, Situation Language Function Ability No Deficits Noted Safety Awareness Decreased Safety Awareness Memory Description No Deficits Noted Gross Range of Motion Lower Extremity ROM Assessment Within Functional Limits Strength Lower Extremity Strength Hip 4/5 Knee 4+/5 Ankle 4/5 Coordination Assessment Gross Coordination Gross Coordination WNL Sensation Assessment Sensation Gross Sensation WNL Muscle Tone Muscle Tone WNL Yes M6 PT-IP Treatment Start: 11/11/19 08:36 Freq: NEEDED Status: Active Protocol: Document 11/11/19 10:28 AW (Rec: 11/11/19 10:48 AW [id number]) Physical Therapy Treatment Education Education Provided Precautions,Safety Other Treatments Other Treatment Performed Pt states her sleep is highly disrupted and she gets only 3- 6 hours of interrupted sleep per night. Provided education on sleep hygiene including a regular sleep/wake schedule and stimulation management. M7 PT-IP Assessment and Plan Start: 11/11/19 08:36 Freq: NEEDED Status: Active Protocol: Document 11/11/19 10:28 AW (Rec: 11/11/19 10:48 AW [id number]) PT Summary Assessment and Plan Potential Rehabilitation Potential Good Status of Condition at Evaluation Stable Summary Impairments Pain,ROM,Strength,Balance, Sensation,Gait,Activity Tolerance Assessment Summary Mildred is a 39 yo woman with history of Andreea Danlos syndrome. She had lumbar surgery on 10/01/19 from which she was recovering well but had an acute episode of pain two days ago. At this encounter, pt's pain is better controlled. She is IND for household ambulation and modified independent in the community with use of 4WW or smart crutches. On evaluation, pt was independent with all bed mobility and transfers, requiring SBA only for gait with FWW. Pt's mobility is at baseline level. Although no acute PT needs are identified, she would benefit from outpatient PT to address chronic pain issues. Frequency of Treatment Frequency Of Treatment Discharge Recommendations To Nursing Amount of Assist Needed Standby Assistance Discharge Recommendations PT Discharge Recommendations Home with Assistance, Outpatient PT Transportation Needs at Discharge Private Vehicle
[2019-11-11] MEDS: HYDROMORPHONE 4 MG TABLET 12 MG PO (11:01)
--- NOTE | 2019-11-11 11:21 | PC.NURSE ---
Addendum entered by Lindsay Baptiste R.N. 11/11/19 13:57: PATIENT GIVEN 2MG IV DILAUDID TO HELP HER GET THROUGH THE RIDE HOME, PATIENT VERY AGREEABLE TO THAT PLAN. AFTERWARDS, IV DC'D, PATIENT ASSISTED TO GET DRESSED BY LOCK INSTALLER AND LEFT BY WC WITH ALL BELONGINGS INCLUDING HER BOTTLE OF DILAUDID PILLS FROM HOME THAT HAD BEEN LOCKED IN PHARMACY, AND HER VALUABLES THAT WERE LOCKED IN SAFE. SHE LEFT W/ LOCK INSTALLER ESCORT AND HER FRIEND TO DRIVE HER HOME. Addendum entered by Lindsay Baptiste R.N. 11/11/19 13:29: PATIENT DENIES BENIFIT FROM ROBAXIN. SHE STATES THAT AT REST PAIN IS 6 SHANTE/10 BUT BEARING ANY WT ON HER RIGHT LEG IS EXCRUCIATING. DR. STEVENS NOTIFIED OF SAME. SHE WILL ORDER A 1X DOSE OF IV DILAUDID AND THEN PATIENT TO DC HOME, TAKE HER HM MEDS DIRECTED AND F/U W/ . PATIENT'S RIDE IS HERE. Addendum entered by Lindsay Baptiste R.N. 11/11/19 12:24: PATIENT REPORTS THE PO DILAUDID WAS WORKING JUST FINE, BUT THAT WHEN SHE GOT UP TO THE BR SHE TWEAKED SOMETHING IN HER GROIN AND IS HAVING TERRIBLE PAIN THAT WON'T SETTLE DOWN 7/10. PATIENT IS TEARFUL. MD NOTIFIED, ORDERED 1X DOSE ROBAXIN, IF WORKS, PATIENT CAN DC HOME TODAY AND F/T WITH DR. LIZARRAGA AND HER PAIN SPECIALIST. Original Note: PATIENT DID WELL W/ PHYSICAL THERAPY. PATIENT GIVEN PO DILAUDID 12MG X1 PER MD ORDER. IF MANAGES PAIN, PATIENT TO DC HOME AND KEEP HER F/U APPT WITH DR. LIZARRAGA THIS WEEK. PATIENT'S FRIEND IS ABLE TO COME AND PICK HER UP.
[2019-11-11] MEDS: methocarbamoL 500 MG TABLET 750 MG PO (12:29)
--- NOTE | 2019-11-11 18:27 | P.DS_ITS ---
History of Present Illness History of Present Illness Date Patient Seen: 11/11/19 Chief complaint: back and legs pain, nausea Narrative: Ms. 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 The patient underwent a lumbar fusion by Dr. Ferraro on 10/01/2019 and states that 7-10 days ago she felt a pop in her back and has had worsening back pain since. The patient has spoken with Dr. Clement on-call for Dr. Warner as well as her painting instructor Dr. Lewis Coronado at [facility] in [place] who recommended the patient increase her pain medication to her pre-surgery dosing of Dilaudid and 12 mg 3 times a day. She has augmented pain control with use of cannabis. The patient has increased her medications as ordered and subsequently developed nausea and has been able to keep medications down using are home regimen of Zofran. The patient reports her pain as isolated to the low back with no radiculopathy, no loss of bowel or bladder control and no saddle anesthesia. She reports no change in in sensation reporting decreased sensation bilateral lower extremities left greater than right that has been consistent since surgery. She reports occasional leg weakness where she feels her legs are going to give out was able to catch herself and has sustained no falls or trauma. She has occasional right arm numbness related to ongoing cervical issues status post cervical fusion. She reports her pain is improved with IV medication provided in the ER as well as her nausea with IV Zofran. She reports no complaints of recent illness, fevers or chills and no known COVID-19 exposures. She reports frequent headaches which she attributes to her chronic cervical problems. 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 She denies complaints of chest pain or palpitations but will have chest tightness and cough in the morning secondary to asthma for which she uses her inhaler several times per week. She denies shortness of breath at this time. Denies complaints of epigastric or abdominal pain. Her nausea vomiting are controlled with IV Zofran. She reports irregular bowel movements on high- dose opiates and uses gummy fiber daily with stool softener with good effect. Her last bowel movement was earlier today. She is no longer menstruating and is status post hysterectomy. Upon arrival to the ER the patient has a temperature 98.7?, heart rate of 80, blood pressure 141/80, respirations of 12 saturating 97% on room air. Imaging is obtained with x-ray of the pelvis which finds no acute bony abnormalities. X-ray of the lumbar spine is read as expected appearance of an L3-4 fusion. On laboratory analysis the patient has white count of 9.2 with no shift, hemoglobin of 14.4, hematocrit of 42.4 and platelets of 235. On chemistry her electrolytes are within normal range and has a BUN of 8 creatinine of 0.49. Her nonfasting glucose is 100. Your provider contacted Dr. Clement and reviewed the patient's case. Patient is admitted to the medicine service for acute intractable lumbar spine pain in the setting of chronic back pain status post lumbar surgery. Discharge Providers Provider Date of admission: 11/10/19 21:48 Discharge Date: 11/11/19 Consults: 11/10/19 22:14 Consult to Dietitian, Adult Routine Comment: Reason For Exam: TMJ dislocation/pain, difficulty chewing Consult to Discharge Planning Routine Comment: Consult to Occupational Therapy Evaluate & Treat Comment: acute back pain s/p lumbar fusion 10/01/2019 Physician Instructions: Evaluate and treat 11/10/19 22:15 Consult to Physical Therapy Evaluate & Treat Comment: acute back pain s/p lumbar fusion 10/01/2019 Physician Instructions: Evaluate and Treat 11/10/19 22:58 Consult to Dietitian, Adult Routine Comment: Reason For Exam: jaw pain with chewing; weight loss unspecified. 11/10/19 23:24 Consult to Respiratory Therapy Evaluate & Treat Comment: Mild persistent asthma Physician Instructions: Evaluate and treat 11/10/19 23:28 Consult to Orthopedic Surgery Routine Comment: Consulting Provider: Christa Clement Reason for consultation: Acute back pain status post lumbar fusion by Dr. Warner Discharge provider: Irish Copeland MD Summary Hospital Course Discharge Diagnosis: 1. Chronic back pain 2. Earlier stand low sin 3. Status post lumbar surgery October 01, 2019 4. Asthma 5. Anemia 6. Bipolar 1 disorder Hospital Course: Patient was admitted to the hospital for intractable back pain. She was placed on her usual regimen of 12 mg of oral Dilaudid every 6 hours. The patient was able to ambulate with PT without difficulty. However after getting up and moving around she developed significant pain in the right groin. She was given 1 Robaxin without improvement. She was seen by Dr. Espino who reviewed her films and felt there was no surgical issue explaining her pain. Patient continued to have pain and was unable to ambulate. She received 1 dose of IV Dilaudid 2 mg and was able to ambulate with successful pain control and deemed appropriate for discharge home. The patient will follow-up with Dr. Ferraro on Tuesday as scheduled. She will follow-up with her outpatient pain medication doctor Dr. Ochoa regarding narcotic medications. Patient was discharged home in satisfactory condition. Exam Vital Signs (past 8 hours): Oxygen Delivery Method Room Air Oxygen Flow Rate 0 Narrative Exam Narrative: Pleasant female lying in bed in no obvious distress Lungs: Clear to auscultation Cardiac exam: Regular rate and rhythm normal S1-S2 Abdomen: Soft and non tender Extremities: No edema Objective Labs Result Diagrams: 11/11/19 05:00 11/11/19 05:00 Labs: Laboratory Results - last 24 hr 11/10/19 11/10/19 11/10/19 20:53 20:55 20:55 WBC 9.2 RBC 4.37 Hgb 14.4 Hct 42.4 MCV 97.1 MCH 33.0 MCHC 34.0 RDW 13.4 Plt Count 235 Neut % (Auto) 66.2 Lymph % (Auto) 25.5 [place] % (Auto) 7.6 Eos % (Auto) 0.1 L Baso % (Auto) 0.6 Neut # (Auto) 6100 Lymph # (Auto) 2300 [place] # (Auto) 700 Eos # (Auto) 0 Baso # (Auto) 100 Sodium 137 Potassium 3.9 Chloride 103 Carbon Dioxide 26 BUN 8 Creatinine 0.49 L Estimated GFR > 60.0 BUN/Creatinine Ratio 16.3 Glucose 100 Calcium 9.8 Total Bilirubin 0.5 Conjugated Bilirubin 0.0 Unconjugated Bilirubin 0.4 AST 21 ALT 16 Alkaline Phosphatase 87 Total Protein 6.5 Albumin 4.1 Globulin 2.4 Albumin/Globulin Ratio 1.7 COVID-19 PCR 11/10/19 11/11/19 11/11/19 23:15 05:00 05:00 WBC 6.9 RBC 3.84 L Hgb 12.4 Hct 37.6 MCV 98.0 MCH 32.4 MCHC 33.1 RDW 13.2 Plt Count 201 Neut % (Auto) 42.0 L D Lymph % (Auto) 45.6 H D [place] % (Auto) 9.9 Eos % (Auto) 1.9 L Baso % (Auto) 0.6 Neut # (Auto) 2900 Lymph # (Auto) 3100 [place] # (Auto) 700 Eos # (Auto) 100 Baso # (Auto) 0 Sodium 136 L Potassium 3.7 Chloride 104 Carbon Dioxide 27 BUN 9 Creatinine 0.53 Estimated GFR > 60.0 BUN/Creatinine Ratio 17.0 Glucose 95 Calcium 8.8 Total Bilirubin Conjugated Bilirubin Unconjugated Bilirubin AST ALT Alkaline Phosphatase Total Protein Albumin Globulin Albumin/Globulin Ratio COVID-19 PCR Negative Discharge Assessment & Plan Assessment and Plan Assessment: 1. Chronic back pain 2. Recent lumbar surgery 3. Chronic opioid use Plan of Treatment: Discharge home with plans as outlined above Discharge Plan Discharge Plan Patient Disposition: Home Discharge orders & Medications Prescriptions: Continued albuterol sulfate 2.5 mg /3 mL (0.083 %) Solution For Nebulization 2.5 mg INHALATION Q4-6H PRN (Reason: Asthma) RF: 0 montelukast [Singulair] 10 mg Tablet 10 mg PO BEDTIME RF: 0 albuterol sulfate 90 mcg/actuation Hfa Aerosol Inhaler 2 puff INHALATION Q4-6H PRN (Reason: Shortness Of Breath) RF: 0 hydromorphone [Dilaudid] 4 mg Tablet See Rx Instructions .ROUTE .COMPLEX PRN (Reason: Pain) RF: 0 ketamine 100 mg Herlinda 100 - 300 mg SUBLINGUAL DAILY MDD 300mg PRN (Reason: depression) RF: 0 Discharge Health Status Multidrug resistant organism: No MDRO Diet/Activity/Treatments Diet: Diet as Tolerated and Regular Skin/Wound/Dressing Care Report to your healthcare provider any signs of infection, such as:: increased pain Visit Report/Discharge Packet Instructions: Andreea-Danlos Syndrome, DI for Low Back Pain, DI for Chronic Pain -- Adult, DI for Prescription Opioid Use Visit Report Forms: Patient Portal/API, Stroke Signs & Symptoms Discharge Data Attending Provider: Dewey Whitt Admit Date/Time: 11/10/19 21:48 Discharges patient from system. Discharge Date/Time: 11/11/19 13:59 Quality VTE Deep Vein Thrombosis/Pulmonary Embolism Present on Admission: No
== END 2019-11-11 13:59 | disposition home or self-care (01) ==
LOC: ED 17:59 → AC 21:48
PROVIDERS: Admitting Provider Nurse Practitioner Adult Health; Emergency Provider Emergency Medicine; Referring Provider Emergency Medicine; Visit Provider Nurse Practitioner Adult Health
DX: M54.9 Dorsalgia, unspecified (principal); R11.2 Nausea with vomiting, unspecified; Q79.61 Classical Ehlers-Danlos syndrome; J45.909 Unspecified asthma, uncomplicated; D64.9 Anemia, unspecified; Z98.1 Arthrodesis status; F11.20 Opioid dependence, uncomplicated; F31.89 Other bipolar disorder; Z11.59 Encounter for screening for other viral diseases
CPT/HCPCS: 36415; 72100; 72170; 80048; 80076; 85025; 87635; 94762; 96372; 96374; 96375; 96376; 97161; 99284; G0378; A9270; C9113; J1170; J1650; J2405

== ENCOUNTER → 2020-01-29 08:32 | Outpatient (CLI) | payer MEDICARE, MEDICAID, SELFPAY ==
[2019-11-10 22:16] VITALS: BMI 29.7
[2020-01-29 13:19] LABS: COVID19 -Nasal RAPID Negative (Negative)
== END ==
PROVIDERS: Visit Provider Physician Assistant
DX: Z01.812 Encounter for preprocedural laboratory examination (principal)
CPT/HCPCS: 87635

== ENCOUNTER 2020-02-01 06:16 | Inpatient (IN) | payer MEDICARE, MEDICAID, SELFPAY ==
[2019-11-10 22:16] VITALS: BMI 29.7
[2020-01-25 09:43] VITALS: BMI 31.8
[2020-02-01] VITALS (15 sets, daily range): BP systolic 117–155; BP diastolic 69–94; PULSE 74–104; RESP 8–99; TEMP 36.5–37.3; O2SAT 10–100; BMI 29.5
--- NOTE | 2020-02-01 | DI.RAD.S_ITS ---
PROCEDURE: XR CERVICAL SPINE 2V OR 3V INDICATIONS: C4-5 CERVICAL FUSION TECHNIQUE: 2 view(s) of the cervical spine were acquired. COMPARISON: [facility], MR, MR CERVICAL SPINE WITHOUT CONTRAST, 11/21/2019, 14:19. FINDINGS: Two intraoperative fluoroscopy images demonstrate discectomy and anterior fusion at C4-C5 with expected postoperative change. Previous anterior fusion at C5-C6 is noted. IMPRESSION: Discectomy and anterior fusion at C4-C5. Dictated by: Cece Johnson M.D. on 02/01/2020 at 10:14 Approved by: Cece Johnson M.D. on 02/01/2020 at 10:15
[2020-02-01] MEDS: LACTATED RINGERS 1,000 ML 42 ML IV (06:45)
--- NOTE | 2020-02-01 07:38 | PM.PREOP ---
Pre-operative Note COVID-19 COVID-19 status: Negative Result date/Date tested (Pos, Neg/Pending): 01/30/20 Interval Note History & Physical reviewed/Exam performed by Physician: Yes Changes to H&P: No
[2020-02-01] MEDS: SCOPOLAMINE 1 PATCH TOP (07:43)
[2020-02-01] MEDS: CEFAZOLIN 2 GM/100 ML FROZ.PIGGY IV ×2 (07:50→15:43)
--- NOTE | 2020-02-01 08:30 | SUR.OPER ---
Supine on padded OR bed, head on gel doughnut, lateral shouler roll at top at bilateral scapulae, arm padded and tucked at side, Silk tape from shoulder to foot of bed , legs uncrossed, safety belt at thigh, tape over blanket over lower legs .
[2020-02-01] MEDS: ACETAMINOPHEN IV 1,000 MG/100 ML VIAL 400 MG IV (09:38)
[2020-02-01] MEDS: BUPIVACAINE 0.25% W/ EPI (PF) 10 ML VIAL 20 ML INJ (09:43)
--- NOTE | 2020-02-01 09:55 | P.OP_ITS ---
Operative Date/Time/Diagnoses Date of procedure: 02/01/20 Time of procedure: 07:55 Pre-op diagnosis: 1. C4-5 spinal stenosis 2. C4-5 spondylosis with radiculopathy Post-op diagnosis: same Procedure & Clinicians Procedure: 1. C4-5 anterior cervical discectomy and fusion 2. C4-5 anterior cage placement. 3. Utilization of microsurgical technique and operating microscope Same procedure as scheduled: Yes Indications: Patient has been having chronic neck pain and worsening cervical radiculopathy. Patient had prior C5-6 anterior cervical diskectomy and fusion with retained hardware. I discussed with the patient the possibility of needing to remove old hardware versus placing instrumentation without removing the old hardware. Patient failed multiple conservative management with worsening pain weakness and numbness in her upper extremity. Patient has been having difficulty performing activity of daily living. After discussing risks benefits of treatment options, patient elected proceed with surgery. Surgeon: Johnathon Warner Insurance Sales Assistant: Annalisa Stringer Click Yes if Unassisted: No Anesthesia Type: General Operative Notes Closure Type: primary Specimen(s): none sent Prosthetic devices, grafts, tissues, transplants, or devices: [employer] AGX Estimated Blood Loss (mL): 10 Blood products transfused: none Procedure in detail: Patient was seen in the preoperative area. Risks and benefits of the surgery was discussed with the patient. Informed consent was obtained from the patient and placed in the chart. Surgical site was marked. Patient was taken to the operative room. General anesthesia was administered. Prophylactic antibiotic was given to the patient less than 30 min before the incision was made. Patient was placed into a supine position on a radiolucent table. Patient's shoulders were taped down to allow proper C-arm imaging. Anterior cervical area was prepped and draped in a sterile fashion. Time-out was performed at this time. Using lateral C-arm imaging, the level between C4 and C4 was identified and marked on patient's neck. A oblique incision from midline towards medial border of sternocleidomastoid muscle was made. The platysma muscle was incised in line with skin incision. Metzenbaum scissor was used to develop the plane between the medial border of sternocleidomastoid d and the strap muscles medially. The carotid sheath and its contents were identified and protected behind the hand- held retractor during the entire case. The plane between the carotid sheath and strap muscles was developed with Metzenbaum scissors. Dissection was made down to the level of the anterior cervical fascia. Longus colli muscle was incised on the anterior aspect of vertebral bodies bilaterally from C4-5. Spinal needle was placed into the C4-5 disc space and confirmed with lateral C-arm imaging. Using microsurgical technique and operative microscope, anterior cervical diskectomy was performed at C4-5 level. This was done by removing the disc material, removing the anterior and posterior osteophytes posterior longitudinal ligaments along with performing bilateral foraminotomies at the C4-5 levels. Patient was found to have severe foraminal stenosis. Patient's stenosis was fully decompressed after decompression was completed. After the diskectomy was completed, an anterior interbody cage was obtained. At this time it appears were able to perform a C4-5 ACDF without removing the C5-6 hardware. There is note of clearance between the cephalad edge of the C5-6 plate and endplate. The cage was packed with DBM bone grafting material. One cage along with the bone grafting material was then packed into the interbody space at C4-5 along with an anterior cervical plate. The cervical plate was stabilized to the C4-5 vertebrae using 2 screws. After confirming placement of the hardware with AP and lateral C-arm imaging, the screws were locked into the plate using the locking mechanism and torque limiting screwdriver. Both screws placed had excellent purchase. After the hardware was placed and confirmed with AP and lateral C-arm imaging, the wound was irrigated with sterile normal saline. The platysma muscle and the subcutaneous tissue was closed with 2-0 Vicryl. The skin was closed with 4-0 Monocryl and Steri-Strips. Patient tolerated the procedure well. Patient was transferred recovery room in stable condition. There were no complications. Complications: none Post-operative Condition: stable Disposition: PACU Plan for aftercare: Admit to inpatient hospital
[2020-02-01] MEDS: HYDROMORPHONE 2 MG INJ IV ×2 (10:12→10:18)
[2020-02-01] MEDS: fentaNYL 100 MCG/2 ML INJ IV ×2 (10:15→10:21)
[2020-02-01] MEDS: HYDROMORPHONE 2 MG TABLET 4 MG PO (10:55)
--- NOTE | 2020-02-01 11:40 | SUR.PHASEI ---
pt arrived from OR in pain, medicated with IV fentanyl and iv dilaudid until pain down to 7/10 and she was able to rest some. She needed O2 briefly for sats in upper 80's. able to urinate a small amt, missed bedpan so unmeasured. Tolerated ice water, ice chips and applecsauce in addiition to 4mg PO dilaudid. Swallowed without issue. report to Lindsay VILLATORO in AC. pt able to transfer to bed in room 203 by walking a few steps to the bed.
[2020-02-01] MEDS: SODIUM CHLORIDE 0.9% 1,000 ML 100 ML IV ×2 (12:12→22:29)
--- NOTE | 2020-02-01 12:24 | PC.ADMIT ---
[id number] Admission Note: The patient,Mildred Charles,39 y/o, was given written information regarding hospital policies, unit procedures and contact persons. Patient's smoking status: Never smoker. Vital Signs - 8 hr 02/01/20 06:52 02/01/20 10:10 02/01/20 10:15 Temperature 98.5 F 98.9 F Pulse Rate 96 H 104 H 88 Respiratory Rate 16 9 L 10 L Blood Pressure 135/80 139/84 134/75 Pulse Oximetry 95 98 100 02/01/20 10:20 02/01/20 10:25 02/01/20 10:30 Temperature 99.2 F 98.5 F 98.5 F Pulse Rate 85 77 85 Respiratory Rate 11 L 10 L 99 H Blood Pressure 155/70 H 138/74 125/69 Pulse Oximetry 100 99 10 L 02/01/20 10:40 02/01/20 10:54 02/01/20 11:04 Temperature 98.1 F 98.4 F 97.7 F Pulse Rate 82 74 77 Respiratory Rate 12 10 L 8 L Blood Pressure 117/86 137/80 122/77 Pulse Oximetry 100 99 96 PATIENT ADMITTED TO 203 FROM PACU. SBA UP TO COMMODE TWICE SINCE ARRIVED. FOOT SCD'S ON, IVF INFUSING PER ORDERS. VSS, RA SAT MID TO HIGH 90'S. NO N/V. EATING LUNCH. RATES PAIN 6/10 TO NECK AND SHOULDERS. TOLERATING WELL. FRESH ICE PACK APPLIED. ORIENTED TO CALL LIGHT SYSTEM.
[2020-02-01] MEDS: HYDROMORPHONE 0.5 MG INJ IV ×5 (13:08→21:59)
--- NOTE | 2020-02-01 13:15 | PT.IIE ---
Current Diagnoses Other spondylosis with radiculopathy, cervical region (02/01/20) Spinal stenosis, cervical region (02/01/20) Arthrodesis status (02/01/20) Surgery Performed Operation Date: 02/01/20 07:45 Actual Procedures p C4-5, ACDF w/anterior instrumentation - Johnathon Warner MD Surgical History (Last Updated 01/25/20 @ 09:54 by Rashmi Chaudhry RN) History of hysterectomy (Acute) History of lumbar fusion (Acute 10/01/19) History of surgery (Acute 05/09/17) Hx of cholecystectomy (Acute) Hx of foot surgery (Acute) Hx of toe surgery (Acute 03/30/19) S/P cervical spinal fusion (Acute 2015) Medical History (Last Updated 01/25/20 @ 10:06 by Rashmi Chaudhry RN) Anemia (Acute) Anxiety (Acute) Asthma (Acute) Bipolar 1 disorder (Acute) Chronic pain disorder (Acute) Depression (Acute) Easy bruisability (Acute) Andreea-Danlos syndrome (Acute) Fragile skin (Acute) Hypokalemia (Acute) Hypotension (Acute) Kidney stones (Acute) Nerve damage (Acute) Postural orthostatic tachycardia syndrome (Acute 01/24/20) PTSD (post-traumatic stress disorder) (Acute) Seasonal allergies (Acute) Skin abnormalities (Acute) Spinal stenosis (Acute) TMJ derangement (Acute) Physical Therapy Inpatient Evaluation/Re-Eval M1 PT/OT-IP Prior Functional Status Start: 02/01/20 13:42 Freq: NEEDED Status: Active Protocol: Document 02/01/20 13:42 CGR (Rec: 02/01/20 13:51 CGR [email or web address]) Medical Review Prior Functional Status Medical History Reviewed Yes Communication Pt is an effective verbal communicator Mobility and Gait Pt was IND for most mobility but states that she uses crutches or 4WW as needed when she feels less steady. Activities of Daily Living and IADL's Pt was IND to MOD I for ADLs but needs assist with IADLs at baseline. Pt states she uses her wall taper and sock aid to assist with LB dressing or her boyfriend assists. Pt states BF sometimes assist with showers SBA. Social History Household Members significant other Living Arrangements House Number of Floors (Floors) One Floor Number of Stairs To Enter/Railing? 12 steps with B wide railings Home Environment Standard Height Toilet,Walk in Shower,Tub/Shower Home Equipment Four Wheel Walker,Crutches, Shower Seat with Backrest, Change Of Address Clerk,Sock Aid Employment Status Unemployed Additional Social History Comment Pt has an adjustable bed. Pt states her BF will be there to assist most of the time and she has a friend that will be staying with her when her BF is not home. M1 PT/OT-IP Prior Functional Status Start: 02/01/20 15:32 Freq: NEEDED Status: Active Protocol: Document 02/01/20 13:15 AB (Rec: 02/01/20 15:50 AB [id number]) Medical Review Prior Functional Status Medical History Reviewed Yes Communication able to make needs known Mobility and Gait Pt was IND for most mobility but states that she uses crutches or 4WW as needed when she feels less steady. Activities of Daily Living and IADL's Pt was IND to MOD I for ADLs but needs assist with IADLs at baseline. Pt states she uses her wall taper and sock aid to assist with LB dressing or her boyfriend assists. Pt states BF sometimes assist with showers SBA. Social History Household Members significant other Living Arrangements House Number of Floors (Floors) One Floor Number of Stairs To Enter/Railing? 12 steps with B wide railings and can only hold on to one rail at a time Home Environment Standard Height Toilet,Walk in Shower,Tub/Shower Home Equipment Four Wheel Walker,Crutches, Shower Seat with Backrest, Change Of Address Clerk,Sock Aid Employment Status Unemployed Additional Social History Comment Pt has an adjustable bed. Pt states her BF will be there to assist most of the time and she has a friend that will be staying with her when her BF is not home. M2 PT-IP Current Condition Start: 02/01/20 15:32 Freq: NEEDED Status: Active Protocol: Document 02/01/20 13:15 AB (Rec: 02/01/20 15:50 AB [id number]) Physical Therapy Current Condition Current Condition Evaluation Date 02/01/20 Treatment Diagnosis s/p C4-5 ACDF; difficulty in walking Onset Date 02/01/20 Precautions Cervical Spine Precautions Soft Collar for Comfort,No Heavy Lifting,Log Roll M3 PT-IP Subjective Start: 02/01/20 15:32 Freq: NEEDED Status: Active Protocol: Document 02/01/20 13:15 AB (Rec: 02/01/20 15:50 AB [id number]) Subjective Physical Therapy Visit Type Type Initial Evaluation Visit Start Time 13:15 Visit Stop Time 13:42 Total Visit Minutes 27 Number of MARKING MACHINE TENDER Visits 0 Physical Therapy Visit Comments Patient Comments agreeable to do PT Therapy Pain Assessment Pain When Pain Assessed At Rest Pain Present Pain Present Pain Reported Location neck Intensity 5 Scale Used Numeric (0 - 10) Pain Management Techniques Modification of Treatment,Re- positioning,Timing of Activity with Medications M4 PT-IP Mobility and Gait Start: 02/01/20 15:32 Freq: NEEDED Status: Active Protocol: Document 02/01/20 13:15 AB (Rec: 02/01/20 15:50 AB [id number]) PT-Bed Mobility Assessment Supine to Sit Supine to Sit Standby Assistance,Head of Bed Elevated Sit to Supine Sit to Supine Standby Assistance PT-Transfer Assessment Sit to and From Stand Sit to and from Stand Contact Guard Assistance,1 Person Assistance Equipment Transfer Assistive Device None,Gait Belt Orthotic/Prosthetic Devices or Brace: Yes Comments Mobility Comments educated on cervical precautions and log roll bed mobility. pt has an adjustable bed at home and usually has the HOB elevated when she gets up. completed supine to sit SBA with HOB elevate. ambulated in room without AD CGA to min A ~ 30 ft. ambulated to the sink and educated on collar management . ambulated towards the toilet and OT assisted pt. pt with unsteady gait without AD and agreed to ambulate with 4WW. assessed use of 4WW and pt completed SBA ~ 30 ft. pt requested to go back to bed and completed sit to supine SBA. positioned in bed. call light and table placed within reach. Gait Assessment Gait Gait Assistance Required: Standby Assistance,Contact Guard Assist,1 Person Assist Distance (Feet) 30 Able to Maintain Weight Bearing Status Yes During Gait Assistive Devices Assistive Device None,Gait Belt,4 Wheeled Walker Orthotic/Prosthetic Devices or Brace: Yes Gait Deviations General Gait Pattern Antalgic Factors Limiting Gait Function Factors Limiting Gait Function Decreased Activity Tolerance, Decreased Strength,Limited Range of Motion,Pain,Poor Safety Awareness Comments Gait Comments pls refer to mobility section for details PT-Balance Assessment Sitting Balance and Reactions Static Sitting Balance Ability Good Dynamic Sitting Balance Ability Good Standing Balance and Reactions Static Standing Balance Ability Fair Dynamic Standing Balance Ability Fair Device Used without AD M5 PT-IP Objective Assessments Start: 02/01/20 15:32 Freq: NEEDED Status: Active Protocol: Document 02/01/20 13:15 AB (Rec: 02/01/20 15:50 AB [id number]) Orientation Orientation/Cognition Level of Alertness Alert Orientation Name,Age,Birthday,Month,Date, Year,Day of Week,Place, Situation Language Function Ability No Deficits Noted Safety Awareness Understands Safety Issues Memory Description No Deficits Noted Gross Range of Motion Lower Extremity ROM Assessment Within Functional Limits Strength Lower Extremity Strength Assessment Within Functional Limits Coordination Assessment Gross Coordination Gross Coordination WNL Sensation Assessment Sensation Gross Sensation WNL Muscle Tone Muscle Tone WNL Yes M6 PT-IP Treatment Start: 02/01/20 15:32 Freq: NEEDED Status: Active Protocol: Document 02/01/20 13:15 AB (Rec: 02/01/20 15:50 AB [id number]) Physical Therapy Treatment Education Education Provided Precautions,Weight Bearing Status,Post-Op Packet,Safety M7 PT-IP Assessment and Plan Start: 02/01/20 15:32 Freq: NEEDED Status: Active Protocol: Document 02/01/20 13:15 AB (Rec: 02/01/20 15:50 AB [id number]) PT Summary Assessment and Plan Potential Rehabilitation Potential Good Status of Condition at Evaluation Stable Summary Impairments Pain,ROM,Strength,Balance, Coordination,Sensation,Tone, Cognition,Bed Mobility, Transfers,Gait,Activity Tolerance Assessment Summary pt requiring SBA with ambulation using 4WW. recommending use of 4WW at this time for stability and safety and pt agreed. pt plans to go home with spouse and friends to assist her. will conduct stair training prior to d/c. Goals Bed Mobility Goal Independent Transfer Goal Independent,Four Wheeled Walker Gait Goal Independent,Four Wheel Walker Gait Distance 200 Other Goals ambulation without AD 150 ft SBA up/down 12 ft 1 rail SBA Days to Meet Goals 5 Frequency of Treatment Frequency Of Treatment Twice a Day Treatment Plan Physical Therapy Treatment Plan Bed Mobility Training,Transfer Training,Gait Training, Therapeutic Exercise,Balance Retraining,Post Op Education, Discharge Planning,Hot or Cold Pack,Neuromuscular Re-ed, Coordination Retraining Recommendations To Nursing Amount of Assist Needed 1 Person Assist Discharge Recommendations PT Discharge Recommendations Home with Assistance Transportation Needs at Discharge Private Vehicle
--- NOTE | 2020-02-01 13:40 | OT.IP.EVAL ---
Current Diagnoses Other spondylosis with radiculopathy, cervical region (02/01/20) Spinal stenosis, cervical region (02/01/20) Arthrodesis status (02/01/20) Surgery Performed Operation Date: 02/01/20 07:45 Actual Procedures p C4-5, ACDF w/anterior instrumentation - Johnathon Warner MD Past Medical History (Last Updated 01/25/20 @ 10:06 by Rashmi Chaudhry RN) Anemia (Acute) Anxiety (Acute) Asthma (Acute) Bipolar 1 disorder (Acute) Chronic pain disorder (Acute) Depression (Acute) Easy bruisability (Acute) Andreea-Danlos syndrome (Acute) Fragile skin (Acute) Hypokalemia (Acute) Hypotension (Acute) Kidney stones (Acute) Nerve damage (Acute) Postural orthostatic tachycardia syndrome (Acute 01/24/20) PTSD (post-traumatic stress disorder) (Acute) Seasonal allergies (Acute) Skin abnormalities (Acute) Spinal stenosis (Acute) TMJ derangement (Acute) Surgical History (Last Updated 01/25/20 @ 09:54 by Rashmi Chaudhry RN) History of hysterectomy (Acute) History of lumbar fusion (Acute 10/01/19) History of surgery (Acute 05/09/17) Hx of cholecystectomy (Acute) Hx of foot surgery (Acute) Hx of toe surgery (Acute 03/30/19) S/P cervical spinal fusion (Acute 2015) Occupational Therapy Inpatient Evaluation/Re-Eval M1 PT/OT-IP Prior Functional Status Start: 02/01/20 13:42 Freq: NEEDED Status: Active Protocol: Document 02/01/20 13:42 CGR (Rec: 02/01/20 13:51 CGR [email or web address]) Medical Review Prior Functional Status Medical History Reviewed Yes Communication Pt is an effective verbal communicator Mobility and Gait Pt was IND for most mobility but states that she uses crutches or 4WW as needed when she feels less steady. Activities of Daily Living and IADL's Pt was IND to MOD I for ADLs but needs assist with IADLs at baseline. Pt states she uses her geology teacher and sock aid to assist with LB dressing or her boyfriend assists. Pt states BF sometimes assist with showers SBA. Social History Household Members significant other Living Arrangements House Number of Floors (Floors) One Floor Number of Stairs To Enter/Railing? 12 steps with B wide railings Home Environment Standard Height Toilet,Walk in Shower,Tub/Shower Home Equipment Four Wheel Walker,Crutches, Shower Seat with Backrest, Bag Machine Operator,Sock Aid Employment Status Unemployed Additional Social History Comment Pt has an adjustable bed. Pt states her BF will be there to assist most of the time and she has a friend that will be staying with her when her BF is not home. M2 OT-IP Current Condition Start: 02/01/20 13:42 Freq: Status: Active Protocol: Document 02/01/20 13:42 CGR (Rec: 02/01/20 13:51 CGR [email or web address]) Occupational Therapy Current Condition Current Condition Evaluation Date 02/01/20 Treatment Diagnosis C4-5 ACDF Diagnosis Onset Date 01/31/20 Post Operative Precautions Cervical Spine Precautions Soft Collar for Comfort,No Heavy Lifting,Log Roll M3 OT- IP Subjective and Pain Start: 02/01/20 13:42 Freq: Status: Active Protocol: Document 02/01/20 13:42 CGR (Rec: 02/01/20 13:51 CGR [email or web address]) OT- Subjective Occupational Therapy Visit Type Type Initial Evaluation Visit Start Time 13:21 Visit Stop Time 13:40 Total Visit Minutes 19 Notes co-eval with P.T. OT Pain Assessment Pain When Pain Assessed During Mobility Pain Present Pain Present Pain Reported Location both shoulders Intensity 4 Scale Used Numeric (0 - 10) Management Techniques Modification of Treatment,Re- positioning,Timing of Activity with Medications M4 OT- IP ADL's Start: 02/01/20 13:42 Freq: Status: Active Protocol: Document 02/01/20 13:42 CGR (Rec: 02/01/20 13:51 CGR [email or web address]) OT [id number] Comments OT Self-Feeding Comments Not performed but pt states she fed herself lunch without difficulty OT ADL-Grooming Comments OT Grooming Comments PT declined OT ADL-Oral Care Comments Oral Care Comments Pt declined OT ADL-Dressing Comments OT Dressing Comments Not performed in this session but pt states that she has geology teacher and sock aide and feels confident in her abilities to use DME for dressing. OT ADL-Toileting General Evaluation Toileting Ability Standby Assistance OT ADL-Bathing Comments OT Bathing Comments Not performed M5 OT- IP IADL's Start: 02/01/20 13:42 Freq: Status: Active Protocol: Document 02/01/20 13:42 CGR (Rec: 02/01/20 13:51 CGR [email or web address]) OT-Instrumental Activities of Daily Living Deficits IADL Deficits Identified No Deficits Home Safety Awareness Awareness of Need for Assistance at Home Good Awareness Ability to Problem Solve Emergency Able to Problem Solve Situations Medication Management Medication Management No Deficits Identified Money Management Money Management No Deficits Identified Meal Preparation Meal Preparation Caregiver Provides Assist Flight Surveyor Flight Surveyor Caregiver Provides Assist Driving Driving Comments Pt does not drive M6 OT- IP Functional Cognition Start: 02/01/20 13:42 Freq: Status: Active Protocol: Document 02/01/20 13:42 CGR (Rec: 02/01/20 13:51 CGR [email or web address]) Cognitive Factors Limiting Selfcare Function Cognitive Ability Level of Alertness Alert Patient Orientation Name,Age,Birthday,Month,Date, Year,Day of Week,Place, Situation Attention Span Ability Capable of Focused Attention, Capable of Sustained Attention Ability to Follow Commands Able to Follow Multi-Step Commands Memory Description No Deficits Noted Safety Awareness No Deficits Noted OT- Vision and Hearing OT- Hearing Assessment OT- Hearing Assessment WFL OT- Vision Assessment Visual Acuity Glasses All The Time Visual Attentiveness WFL Occular Pursuits WFL Visual Convergence WFL M7 OT- IP Mobility and Balance Start: 02/01/20 13:42 Freq: Status: Active Protocol: Document 02/01/20 13:42 CGR (Rec: 02/01/20 13:51 CGR [email or web address]) OT- Bed Mobility Assessment Rolling Level of Assistance Standby Assistance,Head of Bed Elevated Supine to Sit Supine to Sit Assist Standby Assistance,Head of Bed Elevated Sit to Supine Sit to Supine Assist Standby Assistance Scooting Scooting to Edge of Bed Standby Assistance OT-Transfer Assessment Sit to and From Stand Sit to and from Stand Contact Guard Assistance Transfers Transfer Ability Contact Guard Assistance Technique Transfer Destination Bed,Toilet Transfer Technique Stand Step Pivot Devices Transfer Assistive Devices Gait Belt,4 Wheeled Walker Comments Mobility Comments Pt initially ambualted around the room with just gait belt then wtih 4ww. OT- Balance Assessment Sitting Balance and Reactions Static Sitting Balance Ability Normal Dynamic Sitting Balance Ability Good M8 OT- IP Objective Assessments Start: 02/01/20 13:42 Freq: Status: Active Protocol: Document 02/01/20 13:42 CGR (Rec: 02/01/20 13:51 CGR [email or web address]) OT Gross Range of Motion Upper Extremity Range of Motion Assessment Within Functional Limits OT Strength Upper Extremity Strength Assessment Within Functional Limits Comments Strength Comments grossly 4/5 OT- Coordination Assessment Upper Extremity Finger to Nose Test Within Functional Limits Finger Tapping Test Within Functional Limits OT-Muscle Tone Assessment Muscle Tone WNL Yes OT Sensation Assessment Edema Edema Absent M9 OT- IP Assessment and Plan Start: 02/01/20 13:42 Freq: Status: Active Protocol: Document 02/01/20 13:42 CGR (Rec: 02/01/20 13:51 CGR [email or web address]) OT Summary Assessment and Plan Potential Rehabilitation Potential Good Analytic Complexity at Evaluation Low Summary OT Impairments Pain,Functional Mobility Progress Towards Goals Progressing Toward Goals Assessment Summary Pt presents as a low compleixty evalutiono s/p C4-5 ACDF. Pt is at her baseline for ADLs and states understanding of need and use of DME for LB dressing. No further OT needs at this time. Frequency of Treatment Frequency Of Treatment Discharge Discharge Recommendations OT Discharge Recommendations Home with 18/10 Assist Transportation Needs at Discharge Private Vehicle
[2020-02-01] MEDS: HYDROMORPHONE 4 MG TABLET PO ×2 (17:05→21:14)
[2020-02-01] MEDS: DOCUSATE 100 MG CAPSULE PO (20:19)
[2020-02-01] MEDS: MONTELUKAST 10 MG TABLET PO (20:19)
[2020-02-01] MEDS: SENNOSIDES 8.6 MG TABLET 17.2 MG PO (20:19)
[2020-02-01] MEDS: diazePAM 5 MG TABLET PO (20:19)
[2020-02-01] MEDS: OXYCODONE ER 10 MG TAB PO (20:40)
--- NOTE | 2020-02-01 21:40 | PC.NURSE ---
Patient has complex and long standing chronic pain. Uses PO Dilaudid and PO Valium as regular home med and her stay has been augmented by adding IV Dilaudid and PO Oxycontin. Combination of 4 pain meds has kept pain tolerable and patient wishes to continue on this regimen. Patient has been AxOx3, has not exhibited somnolence or impaired mentation. Ambulates SBA without assistive device to bathroom and is steady on her feet. Patient is calm and cooperative with care, hx of falls so bed alarm is on and patient calls appropriately.
[2020-02-02] MEDS: CEFAZOLIN 2 GM/100 ML FROZ.PIGGY IV (00:20)
[2020-02-02] MEDS: HYDROMORPHONE 0.5 MG INJ IV ×6 (00:20→13:02)
[2020-02-02 03:00] VITALS: BP 125/70; PULSE 78; RESP 18; TEMP 37; O2SAT 98
[2020-02-02] MEDS: ACETAMINOPHEN 325 MG TABLET 650 MG PO (04:24)
[2020-02-02 06:07] LABS: Hematocrit 40.6 % (36-46); Hemoglobin 13.6 g/dL (12.0-16.0)
[2020-02-02 07:00] VITALS: BP 132/72; PULSE 78; RESP 19; TEMP 37.1; O2SAT 97
[2020-02-02] MEDS: MAGNESIUM HYDROXIDE 30 ML UDC PO (07:53)
[2020-02-02] MEDS: DOCUSATE 100 MG CAPSULE PO (07:53)
[2020-02-02] MEDS: OXYCODONE ER 10 MG TAB PO (07:54)
[2020-02-02] MEDS: HYDROMORPHONE 4 MG TABLET PO ×2 (07:54→11:24)
--- NOTE | 2020-02-02 09:20 | PM.DS.1 ---
History of Present Illness History of Present Illness Date Patient Seen: 02/02/20 Time Patient Seen: 09:20 Chief complaint: INPT Narrative: Patient's pain she states is moderate to severe. No fever chills. No nausea/ vomiting. Patient been up to bathroom and back to bed with standby assistance only. She states she has family home to assist her. 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 C4-5 anterior cervical discectomy and fusion 2. C4-5 anterior cage placement. 3. Utilization of microsurgical technique and operating microscope Same procedure as scheduled: Yes Indications: Patient has been having chronic neck pain and worsening cervical radiculopathy. Patient had prior C5-6 anterior cervical diskectomy and fusion with retained hardware. I discussed with the patient the possibility of needing to remove old hardware versus placing instrumentation without removing the old hardware. Patient failed multiple conservative management with worsening pain weakness and numbness in her upper extremity. Patient has been having difficulty performing activity of daily living. After discussing risks benefits of treatment options, patient elected proceed with surgery. Surgeon: Johnathon Warner Echo Tech: Annalisa Stringer Click Yes if Unassisted: No Anesthesia Type: General Operative Notes Closure Type: primary Specimen(s): none sent Prosthetic devices, grafts, tissues, transplants, or devices: [employer] AGX Estimated Blood Loss (mL): 10 Blood products transfused: none Patient admitted to the hospital for the above-mentioned procedures. Patient's consented to the same. Patient taken to the operating room yesterday underwent anterior cervical fusion. Patient back in her room recovering well as in stable condition. Patient states her pain is been moderate to severe. Patient moving in bed and able to remove soft collar without any apparent discomfort. She answers questions appropriately. She states she has assistance at home. She will be discharged home today in stable condition. Status at Discharge Cognitive/behavioral status at discharge: at baseline, oriented Overall status at discharge: patient is progressing back to baseline Time Spent with Patient Time spent: Less than 30 minutes Exam Vital Signs (past 8 hours): - 02/02/20 03:00 02/02/20 07:00 Temperature 98.6 F 98.7 F Pulse Rate 78 78 Respiratory Rate 18 19 Blood Pressure 125/70 132/72 Pulse Oximetry 98 97 Oxygen Delivery Method Room Air Oxygen Flow Rate 0 Narrative Exam Narrative: 31-year-old female resting comfortably in bed and is in no apparent pain. Soft collar in place. Her dressing is clean, dry and intact. She has 5/5 strength bilateral upper extremities. Sensation grossly intact to light touch bilateral upper extremities. Objective Labs Result Diagrams: 02/02/20 05:40 Labs: Laboratory Results - last 24 hr 02/02/20 05:40 Hgb 13.6 Hct 40.6 Discharge Assessment & Plan Assessment and Plan Assessment: Postop day 1 C4-C5 anterior cervical diskectomy and fusion. C4-C5 anterior cage placement. Patient progressing as expected. Patient will be discharged home in stable condition. Discharge Plan Discharge Plan Patient Disposition: Home Discharge orders & Medications Prescriptions: New acetaminophen 325 mg Tablet 650 mg PO Q6HR PRN (Reason: Pain, Mild (1-3)) Qty: 60 RF: 0 docusate sodium [DOK] 100 mg Capsule 100 mg PO BID Qty: 30 RF: 0 hydromorphone 4 mg Tablet 4 mg PO Q3HR PRN (Reason: Pain) Qty: 30 RF: 0 oxycodone 10 mg tablet 10 mg PO Q4H PRN (Reason: pain) Qty: 40 RF: 0 Continued albuterol sulfate 2.5 mg /3 mL (0.083 %) Solution For Nebulization 2.5 mg INHALATION Q4-6H PRN (Reason: Asthma) RF: 0 montelukast [Singulair] 10 mg Tablet 10 mg PO BEDTIME RF: 0 albuterol sulfate 90 mcg/actuation Hfa Aerosol Inhaler 2 puff INHALATION Q4-6H PRN (Reason: Shortness Of Breath) RF: 0 ketamine 100 mg Herlinda 100 - 300 mg SUBLINGUAL DAILY MDD 300mg PRN (Reason: depression) RF: 0 diazepam [Valium] 5 mg Tablet 5 - 10 mg PO QID PRN (Reason: Spasms) RF: 0 Discontinued hydromorphone [Dilaudid] 4 mg Tablet See Rx Instructions .ROUTE .COMPLEX PRN (Reason: Pain) RF: 0 Follow up/Referrals: Nette Garces, DNP, [employer] [Primary Care Provider] - Johnathon Warner MD [Physician] - (2 weeks) Diet/Activity/Treatments Diet: Diet as Tolerated Activity: Limit bending, lifting, twisting Cold/Heat Therapy: ice as needed Other treatments: soft collar for comfort Skin/Wound/Dressing Care Report to your healthcare provider any signs of infection, such as:: chills, fever, increased pain, unusual drainage and unusual redness Dressing: keep clean and dry Visit Report/Discharge Packet Instructions: DI for Prescription Opioid Use, DI for Anterior Cervical Discectomy and Fusion Stand Alone Forms: Surgery Discharge Visit Report Forms: Patient Portal/API, Stroke Signs & Symptoms Discharge Data Primary Care Provider: Nette Garces Quality VTE Deep Vein Thrombosis/Pulmonary Embolism Present on Admission: No
--- NOTE | 2020-02-02 10:16 | PT.IPTN ---
Current Diagnoses Other spondylosis with radiculopathy, cervical region (02/01/20) Spinal stenosis, cervical region (02/01/20) Arthrodesis status (02/01/20) Surgery Performed Operation Date: 02/01/20 07:45 Actual Procedures p C4-5, ACDF w/anterior instrumentation - Johnathon Warner MD Physical Therapy Treatment Note M2 PT-IP Current Condition Start: 02/01/20 15:32 Freq: NEEDED Status: Active Protocol: Document 02/01/20 13:15 AB (Rec: 02/01/20 15:50 AB [id number]) Physical Therapy Current Condition Current Condition Evaluation Date 02/01/20 Treatment Diagnosis s/p C4-5 ACDF; difficulty in walking Onset Date 02/01/20 Precautions Cervical Spine Precautions Soft Collar for Comfort,No Heavy Lifting,Log Roll M3 PT-IP Subjective Start: 02/01/20 15:32 Freq: NEEDED Status: Active Protocol: Document 02/02/20 09:58 KS (Rec: 02/02/20 12:27 KS [id number]) Subjective Physical Therapy Visit Type Type Treatment Note Visit Start Time 09:58 Visit Stop Time 10:16 Total Visit Minutes 18 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 1 Physical Therapy Visit Comments Patient Comments agreeable to do PT M4 PT-IP Mobility and Gait Start: 02/01/20 15:32 Freq: NEEDED Status: Active Protocol: Document 02/02/20 09:58 KS (Rec: 02/02/20 12:27 KS [id number]) PT-Bed Mobility Assessment Supine to Sit Supine to Sit Independent,Head of Bed Elevated Sit to Supine Sit to Supine Independent,Head of Bed Elevated Scooting Scooting to Edge of Bed Independent PT-Transfer Assessment Sit to and From Stand Sit to and from Stand Standby Assistance Equipment Transfer Assistive Device None,Gait Belt Orthotic/Prosthetic Devices or Brace: Yes Comments Mobility Comments Pt in bed upon arrival from therapy stating she is eager to return home. Independent for bed mobility w/ HOB raised , pt has adjustable bed at home. SBA for sit<>Stand. Pt then ambulated ~60 ft to stairs and ascended/descended 3x steps w/ L rail ascending R rail descending x4 w/ step to pattern SBA. Pt ambulated additional 60 ft back to room SBA and returned to bed I. Reviewed precautions w/ pt and pt left in bed w/ all needs in reach. Gait Assessment Gait Gait Assistance Required: Standby Assistance,1 Person Assist Distance (Feet) 120 Able to Maintain Weight Bearing Status Yes During Gait Assistive Devices Assistive Device None,Gait Belt Orthotic/Prosthetic Devices or Brace: Yes Gait Deviations General Gait Pattern Antalgic Factors Limiting Gait Function Factors Limiting Gait Function Decreased Activity Tolerance, Decreased Strength,Limited Range of Motion,Pain,Poor Safety Awareness Comments Gait Comments Pt ambulated ~120 ft w/ SBA and no AD. Pt states she occasionally uses rollater if she knows she will be standing or walking for a while, but not typically. Stair Climbing Assessment Evaluation Level of Assist On Stairs Standby Assistance Devices Stair Climbing Assistive Devices Left Railing Technique/Endurance Stair Climbing Direction Ascend and Descend Stair Climbing Technique Step to Step Number of Steps Climbed 3 Stair Climbing Set # Repetitions (reps) 4 Comments Stair Climbing Comments Pt ascended/descended 12 total steps w/ L rail ascending step to pattern SBA. Pt states she will have her present when completing stairs at home and does not plan on using them regularly. PT-Balance Assessment Sitting Balance and Reactions Static Sitting Balance Ability Good Dynamic Sitting Balance Ability Good Standing Balance and Reactions Static Standing Balance Ability Fair Dynamic Standing Balance Ability Fair Device Used without AD M5 PT-IP Objective Assessments Start: 02/01/20 15:32 Freq: NEEDED Status: Active Protocol: Document 02/01/20 13:15 AB (Rec: 02/01/20 15:50 AB [id number]) Orientation Orientation/Cognition Level of Alertness Alert Orientation Name,Age,Birthday,Month,Date, Year,Day of Week,Place, Situation Language Function Ability No Deficits Noted Safety Awareness Understands Safety Issues Memory Description No Deficits Noted Gross Range of Motion Lower Extremity ROM Assessment Within Functional Limits Strength Lower Extremity Strength Assessment Within Functional Limits Coordination Assessment Gross Coordination Gross Coordination WNL Sensation Assessment Sensation Gross Sensation WNL Muscle Tone Muscle Tone WNL Yes M6 PT-IP Treatment Start: 02/01/20 15:32 Freq: NEEDED Status: Active Protocol: Document 02/02/20 09:58 KS (Rec: 02/02/20 12:27 KS [id number]) Physical Therapy Treatment Education Education Provided Precautions,Weight Bearing Status,Post-Op Packet,Safety M7 PT-IP Assessment and Plan Start: 02/01/20 15:32 Freq: NEEDED Status: Active Protocol: Document 02/02/20 09:58 KS (Rec: 02/02/20 12:27 KS [id number]) PT Summary Assessment and Plan Potential Rehabilitation Potential Good Status of Condition at Evaluation Stable Summary Impairments Pain,ROM,Strength,Balance, Coordination,Sensation,Tone, Cognition,Bed Mobility, Transfers,Gait,Activity Tolerance Progress Towards Goals Progressing Toward Goals Assessment Summary Pt independent for bed mobility, SBA for transfers, ambulation, and stairs. Pt ambulated ~120 ft w/o AD and SBA and ascended/descended 12 total steps w/ L rail step to pattern and SBA. Pt states she feels safe to return home w/ providing support. Goals Bed Mobility Goal Independent Transfer Goal Independent,Four Wheeled Walker Gait Goal Independent,Four Wheel Walker Gait Distance 200 Other Goals ambulation without AD 150 ft SBA up/down 12 ft 1 rail SBA Days to Meet Goals 5 Frequency of Treatment Frequency Of Treatment Twice a Day Treatment Plan Physical Therapy Treatment Plan Bed Mobility Training,Transfer Training,Gait Training, Therapeutic Exercise,Balance Retraining,Post Op Education, Discharge Planning,Hot or Cold Pack,Neuromuscular Re-ed, Coordination Retraining Recommendations To Nursing Amount of Assist Needed 1 Person Assist Discharge Recommendations PT Discharge Recommendations Home with Assistance Transportation Needs at Discharge Private Vehicle
[2020-02-02 10:32] VITALS: PULSE 75; RESP 16; O2SAT 95
[2020-02-02] MEDS: SODIUM CHLORIDE 0.9% FLUSH 10 ML IV (13:06)
--- NOTE | 2020-02-02 13:52 | PC.NURSE ---
DISCHARGE: LATE ENTRY; PATIENT CONFIDENT ABOUT GOING HOME. SCRIPTS PROVIDED TO PATIENT. REVIEWED ALL DC HOME PAPERWORK, PATIENT CONFIRMS UNDERSTANDING. PATIENT IS INDEP IN RM. IV DC'D INTACT. PATIENT TAKEN TO S.O[employer]S VEHICLE BY T RAIL TURNER VIA WC WITH ALL BELONGINGS AND PAPERWORK.
== END 2020-02-02 13:00 | disposition home or self-care (01) | DRG 472 ==
PROVIDERS: Admitting Provider Orthopaedic Surgery Orthopaedic Surgery of the Spine; PCP Nurse Practitioner Family; Referring Provider Nurse Practitioner Family; Visit Provider Orthopaedic Surgery Orthopaedic Surgery of the Spine
PROC: 0RG10A0 Fusion of Cervical Vertebral Joint with Interbody Fusion Device, Anterior Approach, Anterior Column, Open Approach (ICD-10-PCS; principal; 2020-02-01 07:45)
DX: M48.02 Spinal stenosis, cervical region (principal); Q79.60 Ehlers-Danlos syndrome, unspecified; M47.22 Other spondylosis with radiculopathy, cervical region; J45.909 Unspecified asthma, uncomplicated; Z01.812 Encounter for preprocedural laboratory examination; Z11.59 Encounter for screening for other viral diseases
CPT/HCPCS: 36415; 72040; 76000; 85014; 85018; 87635; 97161; 97165; 97530; C1776; A9270; J0131; J0690; J1100; J1170; J2405; J2704; J3010

== ENCOUNTER 2020-02-04 10:49 | Emergency (ER) | payer MEDICARE, MEDICAID, SELFPAY ==
[2020-02-01 11:48] VITALS: BMI 29.5
[2020-02-04] VITALS (12 sets, daily range): BP systolic 131–146; BP diastolic 63–102; PULSE 87–125; RESP 13–26; TEMP 36.7; O2SAT 92–100; BMI 29.8
[2020-02-04 11:32] LABS: Pregnancy Test Serum,Qual Negative (Negative)
--- NOTE | 2020-02-04 11:34 | ED.NAVMDI ---
HPI - Nausea/Vomiting/Diarrhea General Chief complaint: Nausea/Vomiting/Diarrhea Stated complaint: Surgery on Tuesday,vomiting since Tuesday Time Seen by Provider: 02/04/20 10:54 Source: patient Mode of arrival: Ambulatory Limitations: no limitations History of Present Illness HPI Narrative: 39-year-old female here for evaluation nausea and vomiting for the past 2 days. On Tuesday she underwent an ACID surgery. After discharge home she states she was feeling better in the next day started having vomiting. She states that she has not been able to take her pain medications. Does have some upper abdominal pain secondary to the vomiting. Some diarrhea as well. Went to an ER yesterday for the same symptoms where she was given IV fluids and pain medicine Ativan and discharged home. She has been having continued symptoms. Related Data Home Medications Medication Instructions Recorded Confirmed albuterol sulfate 2 puff INHALATION Q4-6H PRN 09/24/19 01/25/20 albuterol sulfate 2.5 mg INHALATION Q4-6H PRN 09/24/19 01/25/20 ketamine 100 - 300 mg SUBLINGUAL DAILY PRN 09/24/19 01/25/20 MDD 300mg montelukast [Singulair] 10 mg PO BEDTIME 09/24/19 02/01/20 diazepam [Valium] 5 - 10 mg PO QID PRN 01/25/20 02/01/20 Previous Rx's Medication Instructions Recorded acetaminophen 650 mg PO Q6HR PRN #60 tab 02/02/20 docusate sodium [DOK] 100 mg PO BID #30 cap 02/02/20 hydromorphone 4 mg PO Q3HR PRN #30 tab 02/02/20 oxycodone 10 mg PO Q4H PRN #40 tab 02/02/20 Allergies Allergy/AdvReac Type Severity Reaction Status Date / Time azithromycin Allergy Severe Hives Verified 02/04/20 11:02 ciprofloxacin Allergy Severe Hives Verified 02/04/20 11:02 erythromycin base Allergy Severe Hives, Verified 02/04/20 11:02 Shortness of breath lamotrigine [From Lamictal] Allergy Intermediate Hives Verified 02/04/20 11:02 ketorolac [From Toradol] Allergy Mild Hives, Verified 02/04/20 11:02 shortness of breath, mood swings Penicillins Allergy Mild Hives Verified 02/04/20 11:02 tramadol Allergy Mild Hives Verified 02/04/20 11:02 adhesive tape AdvReac Severe Takes my Verified 02/04/20 11:02 skin off, paper/silk tape ok citalopram AdvReac Severe Tachycardia Verified 02/04/20 11:02 metoclopramide [From Reglan] AdvReac Severe GI Verified 02/04/20 11:02 intolerance, Tachycardia prochlorperazine AdvReac Severe It's like Verified 02/04/20 11:02 [From Compazine] I have a seizure, everything locks up beclomethasone AdvReac Intermediate Shortness Verified 02/04/20 11:02 of Breath red meat AdvReac Severe Projectile Uncoded 02/04/20 11:02 vomiting Review of Systems Constitutional Constitutional: Denies fatigue, Denies fever(s) and Reports headache(s) ENT Ears, Nose, Mouth, and Throat: Reports headache(s) and Reports neck pain Cardiovascular Cardiovascular: Denies chest pain and Denies dyspnea Respiratory Respiratory: Denies dyspnea Gastrointestinal Gastrointestinal: Reports abdominal pain, Reports diarrhea, Reports nausea and Reports vomiting Genitourinary Genitourinary: Denies dysuria Genitourinary: Denies dysuria Musculoskeletal Musculoskeletal: Reports neck pain Integumentary/Breasts Skin/Breast: Denies lesions and Denies rash Neurologic Neurologic: Denies behavioral changes and Reports headache(s) Psychiatric Psychiatric: Denies behavioral changes Endocrine Endocrine: Denies fatigue Hematologic/Lymphatic Hematologic/Lymphatic: Denies easy bleeding and Denies easy bruising Allergic/Immunologic Allergic/Immunologic: Denies urticaria Patient History Medical History Anemia (Acute) Anxiety (Acute) Asthma (Acute) Bipolar 1 disorder (Acute) Chronic pain disorder (Acute) Depression (Acute) Easy bruisability (Acute) Andreea-Danlos syndrome (Acute) Fragile skin (Acute) Hypokalemia (Acute) Hypotension (Acute) Kidney stones (Acute) Nerve damage (Acute) Postural orthostatic tachycardia syndrome (Acute 01/24/20) PTSD (post-traumatic stress disorder) (Acute) Seasonal allergies (Acute) Skin abnormalities (Acute) Spinal stenosis (Acute) TMJ derangement (Acute) Surgical History (Updated 01/25/20 @ 09:54 by Rashmi Chaudhry RN) History of hysterectomy (Acute) History of lumbar fusion (Acute 10/01/19) History of surgery (Acute 05/09/17) Hx of cholecystectomy (Acute) Hx of foot surgery (Acute) Hx of toe surgery (Acute 03/30/19) S/P cervical spinal fusion (Acute 2015) Family History Father Smoker Mother History of ETOH abuse Brother Andreea-Danlos syndrome Sister Medical history unknown Social History household members: significant other Smoking Status: Never smoker alcohol intake: current Smoking Status: Never smoker alcohol intake frequency: a few times a week Substance Use Type: marijuana Exam Initial Vital Signs Initial Vital Signs: Vital Signs Temperature 98.0 F 02/04/20 10:55 Pulse Rate 87 02/04/20 10:55 Respiratory Rate 16 02/04/20 10:55 Blood Pressure 137/65 02/04/20 10:55 Pulse Oximetry 100 02/04/20 10:55 Const General: cooperative Limitations: mental status not altered HENNV Head: normal to inspection and normocephalic Resp Effort & Inspection: normal respiratory effort Cardio Rate: tachycardic Rhythm: regular rhythm GI Palpation: soft and tender (Upper abdomen) Skin Lesions: no lesions Rashes: no rashes Neuro General: patient alert and patient awake Cognition: normal cognition Speech: speech normal Extrem General: capillary refill normal Psych Appearance: grossly normal and well kempt Course Orders Ordered: ED Orders 02/04/20 11:06 Complete Blood Count AUTO DIFF Stat Comprehensive Metabolic Panel Stat Lipase Stat Test Serum,Qual Stat 02/04/20 11:12 EKG-12 Lead Stat Discontinued Medications Sodium Chloride (Normal Saline 0.9%) 1,000 mls @ 1,000 mls/hr IV BOLUS ONE Stop: 02/04/20 12:11 Last Infusion: 02/04/20 13:50 Dose: 0 mls/hr Documented by: Admin: 02/04/20 11:38 Dose: 1,000 mls/hr Documented by: MARCIE Sodium Chloride (Normal Saline 0.9%) 1,000 mls @ 1,000 mls/hr IV BOLUS ONE Stop: 02/04/20 13:15 Last Infusion: 02/04/20 15:13 Dose: 0 mls/hr Documented by: Infusion: 02/04/20 13:55 Dose: 1,000 mls/hr Documented by: Infusion: 02/04/20 13:12 Dose: 0 mls/hr Documented by: Admin: 02/04/20 12:44 Dose: 1,000 mls/hr Documented by: MARCIE Lorazepam (Ativan) 1 mg IV NOW ONE Stop: 02/04/20 13:36 Last Admin: 02/04/20 13:44 Dose: 1 mg Documented by: MARCIE Meclizine HCl (Antivert) 25 mg PO NOW ONE Stop: 02/04/20 12:59 Last Admin: 02/04/20 13:04 Dose: 25 mg Documented by: MARCIE Ondansetron HCl (Zofran) 4 mg IV NOW ONE Stop: 02/04/20 11:13 Last Admin: 02/04/20 11:38 Dose: 4 mg Documented by: MARCIE Ondansetron HCl (Zofran) 4 mg IV NOW ONE Stop: 02/04/20 12:26 Last Admin: 02/04/20 12:44 Dose: 4 mg Documented by: MARCIE Vital Signs Vital signs: Vital Signs - 8 hr 02/04/20 10:55 02/04/20 11:30 02/04/20 12:00 Temperature 98.0 F Pulse Rate 87 106 H 106 H Respiratory Rate 16 13 23 Blood Pressure 137/65 133/68 133/63 Pulse Oximetry 100 95 94 02/04/20 12:24 02/04/20 12:30 02/04/20 13:00 Temperature Pulse Rate 98 H 100 H 111 H Respiratory Rate 14 15 26 H Blood Pressure 146/84 H 131/74 138/70 Pulse Oximetry 96 92 96 02/04/20 13:25 02/04/20 14:00 02/04/20 14:30 Temperature Pulse Rate 112 H 125 H 96 H Respiratory Rate 23 25 H 15 Blood Pressure 138/102 H 139/69 136/70 Pulse Oximetry 97 96 94 02/04/20 15:00 02/04/20 15:30 02/04/20 15:51 Temperature Pulse Rate 124 H 97 H 110 H Respiratory Rate 15 20 22 Blood Pressure 146/84 H 131/73 134/63 Pulse Oximetry 96 94 97 MDM - Nausea/Vomiting/Diarrhea Lab Data Attestation: I reviewed the patient's lab results. Result diagrams: 02/04/20 11:06 02/04/20 11:06 Labs: Lab Results 02/04/20 02/04/20 02/04/20 Range/Units 11: 11:06 11:06 WBC 9.0 (4.5-11.0) X10^3/uL RBC 4.50 (4.0-5.2) X10^6/uL Hgb 14.6 (12.0-16.0) g/dL Hct 43.3 (36-46) % MCV 96.1 (80-100) fL MCH 32.5 (26-34) PG MCHC 33.8 (30-36) % RDW 13.3 (11.6-14.8) % Plt Count 247 (150-400) X10^3/uL Neut % (Auto) 63.9 (50-75) % Lymph % (Auto) 19.3 L (25-40) % [place] % (Auto) 8.9 (3-14) % Eos % (Auto) 7.7 H (2-4) % Baso % (Auto) 0.2 (0-2) % Neut # (Auto) 5800 (2913-3694) /uL Lymph # (Auto) 1700 (6581-3277) /uL [place] # (Auto) 800 (0-900) /uL Eos # (Auto) 700 H (0-450) /uL Baso # (Auto) 0 (0-100) /uL Sodium 138 (137-145) mmol/L Potassium 3.8 (3.4-5.1) mmol/L Chloride 100 (98-107) mmol/L Carbon Dioxide 31 (22-32) mmol/L BUN 5 L (7-17) mg/dL Creatinine 0.49 L (0.52-1.04) mg/dL Estimated GFR > 60.0 (>60) mL/min BUN/Creatinine Ratio 10.2 (6-22) Glucose 124 H (70-100) mg/dL Calcium 9.8 (8.4-10.2) mg/dL Total Bilirubin 0.7 (0.2-1.3) mg/dL AST 21 (14-36) IU/L ALT 21 (<35) IU/L Alkaline Phosphatase 90 (38-126) U/L Total Protein 7.2 (6.3-8.2) g/dL Albumin 4.4 (3.5-5.0) g/dL Globulin 2.8 (1.7-4.1) g/dL Albumin/Globulin Ratio 1.6 (1.0-2.8) Lipase 36 (23-300) U/L Serum , Qual Negative (Negative) Urine Dip Bedside Urine Glucose Negative Bedside Urine Bilirubin - Negative Bedside Urine Ketone +++ 80 Urine Specific Crete 1.020 Bedside Urine Occult Blood - Negative Bedside Urine pH 6.0 Bedside Urine Protein - Negative Bedside Urine Urobilinogen - Negative Bedside Urine Nitrite - Negative Bedside Urine Leukocytes - Negative Esterase ECG Data Attestation: I personally reviewed and interpreted this ECG as follows: Prior ECG tracings: not available for review Interpretation: Sinus rhythm Ventricular rate 85 Normal QRS Normal QTC Nonspecific ST T wave changes MDM Narrative Medical decision making narrative: Patient was here in the emergency department for extended period of time. Receive multiple doses of nausea medication and had no vomiting while she was here in the ER. Review the note shows that she is on an extensive amount of opioids at home. This was her 2nd ED visit in the past couple days with the 1st 1 being in an outside facility. They feel that her symptoms today are unlikely directly related to the surgery that she had. Could potentially be the anesthesia that she received. She extensively discussed her multiple allergies to various nausea medications. She was given no opioids during this visit despite her asking multiple times. She also explained multiple times her allergies to other nonopioid type medications. I do not doubt that the patient is having some discomfort however I feel that continuing to give her IV opioid medications here in the emergency department would not benefit her in the long run. She was sleeping in the room multiple times when nursing staff went in to check on her and same with myself. She was able to tolerate an oral dose of meclizine. Patient was sleeping when I went into the room after receiving several doses of nausea medicine and also 2 L of fluids and not having any vomiting. She stated that she felt like she needed admitted to the hospital because she could not take her pain medication at home because of the vomiting. She does have Phenergan at home and also Zofran at home. She states that she was told that she should not take the Phenergan after I brought up that we could send her home with Phenergan suppositories. We discussed potentially sending home with Ativan but she says she has Valium at home already. Patient does not meet any inpatient criteria. Unfortunately I feel that we have little more to offer her here in the emergency department. She was instructed to contact her primary provider for follow-up. She did leave rather upset with these discussions. Discharge Plan Departure Patient Disposition: Home Clinical Impression: Nausea and vomiting Qualifiers: Vomiting type: unspecified Vomiting Intractability: unspecified Qualified Code(s): R11.2 - Nausea with vomiting, unspecified Discharge Date/Time: 02/04/20 16:08 Instructions: Nausea and Vomiting-Adult Activity Restrictions/Additional Instructions: I do recommend that you continue all of your medications as directed. 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 Contact her primary provider for follow-up as well. Prescriptions: No Action albuterol sulfate 2.5 mg /3 mL (0.083 %) Solution For Nebulization 2.5 mg INHALATION Q4-6H PRN (Reason: Asthma) RF: 0 montelukast [Singulair] 10 mg Tablet 10 mg PO BEDTIME RF: 0 albuterol sulfate 90 mcg/actuation Hfa Aerosol Inhaler 2 puff INHALATION Q4-6H PRN (Reason: Shortness Of Breath) RF: 0 ketamine 100 mg Herlinda 100 - 300 mg SUBLINGUAL DAILY MDD 300mg PRN (Reason: depression) RF: 0 diazepam [Valium] 5 mg Tablet 5 - 10 mg PO QID PRN (Reason: Spasms) RF: 0 acetaminophen 325 mg Tablet 650 mg PO Q6HR PRN (Reason: Pain, Mild (1-3)) Qty: 60 RF: 0 docusate sodium [DOK] 100 mg Capsule 100 mg PO BID Qty: 30 RF: 0 hydromorphone 4 mg Tablet 4 mg PO Q3HR PRN (Reason: Pain) Qty: 30 RF: 0 oxycodone 10 mg tablet 10 mg PO Q4H PRN (Reason: pain) Qty: 40 RF: 0 Referrals: Nette Garces, [facility], [employer] [facility] [Primary Care Provider] -
[2020-02-04 11:35] LABS: Alanine Aminotransferase 21 IU/L (<35); Albumin 4.4 g/dL (3.5-5.0); Albumin Globulin Ratio 1.6 (1.0-2.8); Alkaline Phosphatase 90 U/L (38-126); Aspartate Aminotransferase 21 IU/L (14-36); BUN Creatinine Ratio 10.2 (6-22); Bilirubin Total 0.7 mg/dL (0.2-1.3); Blood Urea Nitrogen 5 mg/dL (7-17); Calcium 9.8 mg/dL (8.4-10.2); Carbon Dioxide 31 mmol/L (22-32); Chloride 100 mmol/L (98-107); Estimated Glomerular Filt Rate > 60.0 mL/min (>60); Globulin 2.8 g/dL (1.7-4.1); Glucose 124 mg/dL (70-100); HEMOLYSIS < 15 (0-50); Lipase 36 U/L (23-300); Potassium 3.8 mmol/L (3.4-5.1); Sodium 138 mmol/L (137-145); Total Protein 7.2 g/dL (6.3-8.2)
[2020-02-04 11:38] LABS: Add Manual Diff / Slide Review NO; Basophils Absolute Auto 0 /uL (0-100); Basophils Percent Auto 0.2 % (0-2); Eosinophils Absolute Auto 700 /uL (0-450); Eosinophils Percent Auto 7.7 % (2-4); Hematocrit 43.3 % (36-46); Hemoglobin 14.6 g/dL (12.0-16.0); Lymphocytes Absolute Auto 1700 /uL (1100-4500); Lymphocytes Percent Auto 19.3 % (25-40); Mean Corpuscular HGB Conc 33.8 % (30-36); Mean Corpuscular Hemoglobin 32.5 PG (26-34); Mean Corpuscular Volume 96.1 fL (80-100); Monocytes Absolute Auto 800 /uL (0-900); Monocytes Percent Auto 8.9 % (3-14); Neutrophils Absolute Auto 5800 /uL (1500-7000); Neutrophils Percent Auto 63.9 % (50-75); Platelet Count 247 X10^3/uL (150-400); Red Cell Distribution Width 13.3 % (11.6-14.8)
[2020-02-04] MEDS: SODIUM CHLORIDE 0.9% 1,000 ML 1000 ML IV ×2 (11:38→12:44)
[2020-02-04] MEDS: ONDANSETRON 4 MG/2 ML INJ IV ×2 (11:38→12:44)
[2020-02-04] MEDS: MECLIZINE HCL 12.5 MG TABLET 25 MG PO (13:04)
[2020-02-04] MEDS: LORazepam 2 MG/ML INJ 1 MG IV (13:44)
== END 2020-02-04 16:08 | disposition home or self-care (01) ==
PROVIDERS: Emergency Provider Emergency Medicine; PCP Nurse Practitioner Family
DX: R11.2 Nausea with vomiting, unspecified (principal); R10.9 Unspecified abdominal pain; R19.7 Diarrhea, unspecified; R51.9 Headache, unspecified; M54.2 Cervicalgia
CPT/HCPCS: 36415; 80053; 81003; 83690; 84703; 85025; 93005; 96361; 96374; 96375; 96376; 99284; J2060; J2405

== ENCOUNTER 2020-02-21 12:10 | Emergency (ER) | payer MEDICARE, MEDICAID, SELFPAY ==
[2020-02-01 11:48] VITALS: BMI 29.5
[2020-02-21] VITALS (10 sets, daily range): BP systolic 123–140; BP diastolic 60–85; PULSE 85–106; RESP 16–23; TEMP 36.9; O2SAT 95–99
[2020-02-21] MEDS: SODIUM CHLORIDE 0.9% 1,000 ML 1000 ML IV ×2 (12:43→14:27)
[2020-02-21] MEDS: ONDANSETRON 4 MG/2 ML INJ IV (12:44)
[2020-02-21 12:48] LABS: Alanine Aminotransferase 47 IU/L (<35); Albumin 4.5 g/dL (3.5-5.0); Albumin Globulin Ratio 1.4 (1.0-2.8); Alkaline Phosphatase 127 U/L (38-126); Amylase 75 U/L (30-110); Aspartate Aminotransferase 28 IU/L (14-36); BUN Creatinine Ratio 11.1 (6-22); Bilirubin Total 0.8 mg/dL (0.2-1.3); Blood Urea Nitrogen 6 mg/dL (7-17); Calcium 10.3 mg/dL (8.4-10.2); Carbon Dioxide 30 mmol/L (22-32); Chloride 105 mmol/L (98-107); Estimated Glomerular Filt Rate > 60.0 mL/min (>60); Globulin 3.3 g/dL (1.7-4.1); Glucose 118 mg/dL (70-100); HEMOLYSIS < 15 (0-50); Lipase 55 U/L (23-300); Magnesium 1.6 mg/dL (1.6-2.3); Potassium 4.1 mmol/L (3.4-5.1); Sodium 139 mmol/L (137-145); Total Protein 7.8 g/dL (6.3-8.2)
[2020-02-21 12:51] LABS: Add Manual Diff / Slide Review NO; Basophils Absolute Auto 100 /uL (0-100); Basophils Percent Auto 1.1 % (0-2); Eosinophils Absolute Auto 0 /uL (0-450); Eosinophils Percent Auto 0.6 % (2-4); Hematocrit 47.4 % (36-46); Hemoglobin 15.9 g/dL (12.0-16.0); Lymphocytes Absolute Auto 2000 /uL (1100-4500); Lymphocytes Percent Auto 28.2 % (25-40); Mean Corpuscular HGB Conc 33.6 % (30-36); Mean Corpuscular Hemoglobin 32.3 PG (26-34); Mean Corpuscular Volume 96.1 fL (80-100); Monocytes Absolute Auto 600 /uL (0-900); Monocytes Percent Auto 8.9 % (3-14); Neutrophils Absolute Auto 4300 /uL (1500-7000); Neutrophils Percent Auto 61.2 % (50-75); Platelet Count 309 X10^3/uL (150-400); Red Blood Cell Count 4.93 X10^6/uL (4.0-5.2); Red Cell Distribution Width 13.9 % (11.6-14.8)
--- NOTE | 2020-02-21 12:54 | DI.RAD.S_ITS ---
PROCEDURE: XR ACUTE ABDOMEN SERIES INDICATIONS: severe vomiting TECHNIQUE: One view chest and two views of the abdomen were acquired. COMPARISON: [facility], CR, XR ABDOMEN 1 VIEW, 01/19/2018, 20:15. [facility], CT, CT ABDOMEN PELVIS WITH CONTRAST, 09/11/2014, 14:48. FINDINGS: Surgical changes and devices: Cervical spine fixation hardware in lumbar spine this can be seen. Cholecystectomy clips are seen. Chest: Lungs are clear. Heart size is normal. No pleural effusions. No pneumoperitoneum. Abdomen: Bowel gas pattern is normal. No suspicious calcifications. Visualized solid organ contours appear normal. Bones: No suspicious bony lesions. IMPRESSION: A nonobstructive bowel gas pattern is seen. As clinically appropriate, please consider a repeat plain film study or a dedicated CT of the abdomen and pelvis, if the patient's symptoms persist or worsen. Postoperative changes are seen. Dictated by: Ramon Madden M.D. on 02/21/2020 at 12:14 Approved by: Ramon Madden M.D. on 02/21/2020 at 12:16
--- NOTE | 2020-02-21 13:13 | ED.NAVMDI ---
HPI - Nausea/Vomiting/Diarrhea <Staci Garduno, ADVANCED REGISTERED NURSE-BC - Last Filed: 02/21/20 18:33> General Chief complaint: Nausea/Vomiting/Diarrhea Stated complaint: felt yucky after surgery vomiting/head hurts Time Seen by Provider: 02/21/20 12:31 Source: patient Mode of arrival: Ambulatory Limitations: no limitations History of Present Illness HPI Narrative: The patient is a 39 year old female with history of cervical spine fusion, chronic pain, PTSD, bipolar 1, POTS, and sick with vomiting who presents with a chief complaint of nausea and vomiting since her surgery on the of this month. She states that she has had multiple emergency department visits between here and [facility] since her surgery. She states that she stopped doing able to keep down fluids yesterday, so she is having a hard time keeping down her pain medicine. She denies any fevers. She states that she has tried Zofran, took her last sublingual tablet at 7:00 a.m.. Since then she has been unable to keep down anything, so she comes to the emergency department as she is unable to continue taking her pain medication for her chronic neck pain. Upon arrival to the emergency department, she is requesting pain medicine, though I discussed with her chronic pain policy here in the ER and offered her Tylenol for her pain. She states that she has a follow-up appointment with Dr. Warner on the next month. She unfortunately missed her initial postoperative visit. She states that she has slight urinary urgency or frequency, and worries that she might have a urinary tract infection. Related Data Home Medications Medication Instructions Recorded Confirmed albuterol sulfate 2 puff INHALATION Q4-6H PRN 09/24/19 01/25/20 albuterol sulfate 2.5 mg INHALATION Q4-6H PRN 09/24/19 01/25/20 ketamine 100 - 300 mg SUBLINGUAL DAILY PRN 09/24/19 01/25/20 MDD 300mg montelukast [Singulair] 10 mg PO BEDTIME 09/24/19 02/01/20 diazepam [Valium] 5 - 10 mg PO QID PRN 01/25/20 02/01/20 Previous Rx's Medication Instructions Recorded acetaminophen 650 mg PO Q6HR PRN #60 tab 02/02/20 docusate sodium [DOK] 100 mg PO BID #30 cap 02/02/20 hydromorphone 4 mg PO Q3HR PRN #30 tab 02/02/20 oxycodone 10 mg PO Q4H PRN #40 tab 02/02/20 ondansetron 4 mg PO Q6H PRN #20 tab 02/21/20 promethazine 25 mg KS Q4-6H PRN #12 ea 02/21/20 Allergies Allergy/AdvReac Type Severity Reaction Status Date / Time azithromycin Allergy Severe Hives Verified 02/04/20 11:02 ciprofloxacin Allergy Severe Hives Verified 02/04/20 11:02 erythromycin base Allergy Severe Hives, Verified 02/04/20 11:02 Shortness of breath lamotrigine [From Lamictal] Allergy Intermediate Hives Verified 02/04/20 11:02 ketorolac [From Toradol] Allergy Mild Hives, Verified 02/04/20 11:02 shortness of breath, mood swings Penicillins Allergy Mild Hives Verified 02/04/20 11:02 tramadol Allergy Mild Hives Verified 02/04/20 11:02 adhesive tape AdvReac Severe Takes my Verified 02/04/20 11:02 skin off, paper/silk tape ok citalopram AdvReac Severe Tachycardia Verified 02/04/20 11:02 metoclopramide [From Reglan] AdvReac Severe GI Verified 02/04/20 11:02 intolerance, Tachycardia prochlorperazine AdvReac Severe It's like Verified 02/04/20 11:02 [From Compazine] I have a seizure, everything locks up beclomethasone AdvReac Intermediate Shortness Verified 02/04/20 11:02 of Breath red meat AdvReac Severe Projectile Uncoded 02/04/20 11:02 vomiting Review of Systems <DIANA Flowers-BC - Last Filed: 02/21/20 18:33> Review of Systems Narrative: GENERAL: Denies chills, fatigue, malaise, fever, sweats. HEENT: Denies sinus pain, ear pain, sore throat, difficulty swallowing, dizziness. RESPIRATORY: Denies dyspnea, cough, wheezing, hemoptysis, sputum. CARDIOVASCULAR: Denies chest pain, palpitations, orthopnea, edema, GASTROINTESTINAL: See HPI : Denies dysuria, frequency, incontinence, hematuria, urinary retention. MUSCULOSKELETAL: denies weakness, joint pain, or bony pain SKIN: Denies rash, skin lesions, or other NEUROLOGIC: Denies weakness, headache, numbness, change in speech, confusion, seizures, incoordination. PSYCHIATRIC: No concerning psychosocial issues. 12 point review of systems is negative except for those stated above Patient History <LU Flowers - Last Filed: 02/21/20 18:33> Medical History (Updated 02/21/20 @ 16:12 by LU Flowers) Anemia Anxiety Asthma Bipolar 1 disorder Chronic pain disorder Depression Easy bruisability Andreea-Danlos syndrome Fragile skin Hypokalemia Hypotension Kidney stones Nerve damage Postural orthostatic tachycardia syndrome (01/24/20) PTSD (post-traumatic stress disorder) Seasonal allergies Skin abnormalities Spinal stenosis TMJ derangement Surgical History History of hysterectomy History of lumbar fusion (10/01/19) History of surgery (05/09/17) Hx of cholecystectomy Hx of foot surgery Hx of toe surgery (03/30/19) S/P cervical spinal fusion (2016) Family History Father Smoker Mother History of ETOH abuse Brother Andreea-Danlos syndrome Sister Medical history unknown Social History household members: significant other Smoking Status: Never smoker alcohol intake: current Smoking Status: Never smoker alcohol intake frequency: a few times a week Substance Use Type: marijuana Exam <LU Flowers - Last Filed: 02/21/20 18:33> Narrative Exam Narrative: GENERAL: This is a well-nourished, well-developed patient, in no acute distress HEAD: Atraumatic. Normocephalic. No temporal or scalp tenderness. EYES: Pupils equal round and reactive. Extraocular motions intact. No scleral icterus. No injection or drainage. ENT: Nose without bleeding, purulent drainage or septal hematoma. Throat without erythema, tonsillar hypertrophy or exudate. Uvula midline. Airway patent. Slightly dry mucous membranes noted, though spit noted NECK: Trachea midline. No JVD or lymphadenopathy. Supple, nontender, no meningeal signs. CARDIOVASCULAR: Regular rate and rhythm RESPIRATORY: Clear to auscultation. Breath sounds equal bilaterally. No wheezes, rales, or rhonchi. No cough. No increased respiratory effort. No accessory muscle use GASTROINTESTINAL: Abdomen soft, non-tender, nondistended. No hepato-splenomegaly, or palpable masses. No guarding. Active bowel sounds all 4 quadrants. EXTREMITIES: No clubbing, cyanosis, or edema. No joint tenderness, effusion, or edema noted. BACK: Nontender without deformity or crepitance. No flank tenderness. NEURO: AOx3. Stable gait. SKIN: No rash or erythema on visible skin. Anterior neck incision clean dry intact, with no extending redness Initial Vital Signs Initial Vital Signs: Vital Signs Temperature 98.4 F 02/21/20 12:27 Pulse Rate 91 H 02/21/20 12:27 Respiratory Rate 16 02/21/20 12:27 Blood Pressure 140/85 02/21/20 12:27 Pulse Oximetry 99 02/21/20 12:27 <Alireza Thomson DO - Last Filed: 02/26/20 17:56> Initial Vital Signs Initial Vital Signs: Vital Signs Temperature 98.4 F 02/21/20 12:27 Pulse Rate 91 H 02/21/20 12:27 Respiratory Rate 16 02/21/20 12:27 Blood Pressure 140/85 02/21/20 12:27 Pulse Oximetry 99 02/21/20 12:27 Scores <LU Flowers - Last Filed: 02/21/20 18:33> GCS [place] coma scale eye opening: Spontaneous Gladys coma scale verbal response: Orientated [place] coma scale motor response: Obey commands Gladys coma scale total score: 15 Course <LU Flowers - Last Filed: 02/21/20 18:33> Orders Ordered: Discontinued Medications Diphenhydramine HCl (Diphenhydramine 50 Mg/Ml Vial) 50 mg IV NOW ONE Stop: 02/21/20 14:05 Last Admin: 02/21/20 14:29 Dose: 50 mg Documented by: RMARTIN Sodium Chloride (Normal Saline 0.9%) 1,000 mls @ 1,000 mls/hr IV BOLUS ONE Stop: 02/21/20 13:34 Last Infusion: 02/21/20 14:20 Dose: 0 mls/hr Documented by: Admin: 02/21/20 12:43 Dose: 1,000 mls/hr Documented by: LORI Sodium Chloride (Normal Saline 0.9%) 1,000 mls @ 1,000 mls/hr IV BOLUS ONE Stop: 02/21/20 13:53 Last Infusion: 02/21/20 16:01 Dose: 0 mls/hr Documented by: Admin: 02/21/20 14:27 Dose: 1,000 mls/hr Documented by: ALESSIA Lorazepam (Lorazepam 2 Mg/Ml Inj) 1 mg IV NOW ONE Stop: 02/21/20 12:55 Last Admin: 02/21/20 13:17 Dose: 1 mg Documented by: ALESSIA Lorazepam (Lorazepam 2 Mg/Ml Inj) 0.5 mg IV NOW ONE Stop: 02/21/20 15:42 Last Admin: 02/21/20 15:45 Dose: 0.5 mg Documented by: ALESSIA Ondansetron HCl (Ondansetron 4 Mg/2 Ml Inj) 4 mg IV NOW ONE Stop: 02/21/20 12:36 Last Admin: 02/21/20 12:44 Dose: 4 mg Documented by: LORI Ondansetron HCl (Ondansetron 4 Mg Odt Prepack) 1 bottle MISC SEEINSTR ONE Stop: 02/21/20 15:06 Last Admin: 02/21/20 15:46 Dose: 1 bottle Documented by: ALESSIA Pantoprazole Sodium (Pantoprazole 40 Mg Vial) 40 mg IV NOW ONE Stop: 02/21/20 14:05 Last Admin: 02/21/20 14:27 Dose: 40 mg Documented by: ALESSIA Promethazine HCl (Promethazine 25 Mg Supp) 25 mg KS NOW ONE Stop: 02/21/20 14:05 Last Admin: 02/21/20 14:29 Dose: 25 mg Documented by: ALESSIA Promethazine HCl (Promethazine 25 Mg Prepack) 1 bottle MISC SEEINSTR ONE Stop: 02/21/20 15:42 Last Admin: 02/21/20 15:46 Dose: 1 bottle Documented by: ALESSIA Vital Signs Vital signs: Vital Signs - 8 hr 02/21/20 12:27 02/21/20 13:23 02/21/20 13:30 Temperature 98.4 F Pulse Rate 91 H 91 H 85 Respiratory Rate 16 23 Blood Pressure 140/85 123/71 126/67 Pulse Oximetry 99 97 95 02/21/20 13:52 02/21/20 14:00 02/21/20 14:31 Temperature Pulse Rate 90 88 89 Respiratory Rate 16 20 Blood Pressure 126/60 132/63 Pulse Oximetry 99 98 96 02/21/20 14:33 02/21/20 15:00 02/21/20 15:41 Temperature Pulse Rate 90 106 H 85 Respiratory Rate 21 23 16 Blood Pressure 124/66 131/69 136/71 Pulse Oximetry 98 99 98 02/21/20 16:21 Temperature Pulse Rate 88 Respiratory Rate 16 Blood Pressure 131/73 Pulse Oximetry 99 <Alireza Thomson DO - Last Filed: 02/26/20 17:56> Orders Ordered: Discontinued Medications Diphenhydramine HCl (Diphenhydramine 50 Mg/Ml Vial) 50 mg IV NOW ONE Stop: 02/21/20 14:05 Last Admin: 02/21/20 14:29 Dose: 50 mg Documented by: RMARTIN Sodium Chloride (Normal Saline 0.9%) 1,000 mls @ 1,000 mls/hr IV BOLUS ONE Stop: 02/21/20 13:34 Last Infusion: 02/21/20 14:20 Dose: 0 mls/hr Documented by: Admin: 02/21/20 12:43 Dose: 1,000 mls/hr Documented by: BSMEN Sodium Chloride (Normal Saline 0.9%) 1,000 mls @ 1,000 mls/hr IV BOLUS ONE Stop: 02/21/20 13:53 Last Infusion: 02/21/20 16:01 Dose: 0 mls/hr Documented by: Admin: 02/21/20 14:27 Dose: 1,000 mls/hr Documented by: RMARTIN Lorazepam (Lorazepam 2 Mg/Ml Inj) 1 mg IV NOW ONE Stop: 02/21/20 12:55 Last Admin: 02/21/20 13:17 Dose: 1 mg Documented by: RMARTIN Lorazepam (Lorazepam 2 Mg/Ml Inj) 0.5 mg IV NOW ONE Stop: 02/21/20 15:42 Last Admin: 02/21/20 15:45 Dose: 0.5 mg Documented by: ALESSIA Ondansetron HCl (Ondansetron 4 Mg/2 Ml Inj) 4 mg IV NOW ONE Stop: 02/21/20 12:36 Last Admin: 02/21/20 12:44 Dose: 4 mg Documented by: LORI Ondansetron HCl (Ondansetron 4 Mg Odt Prepack) 1 bottle MISC SEEINSTR ONE Stop: 02/21/20 15:06 Last Admin: 02/21/20 15:46 Dose: 1 bottle Documented by: ALESSIA Pantoprazole Sodium (Pantoprazole 40 Mg Vial) 40 mg IV NOW ONE Stop: 02/21/20 14:05 Last Admin: 02/21/20 14:27 Dose: 40 mg Documented by: ALESSIA Promethazine HCl (Promethazine 25 Mg Supp) 25 mg KS NOW ONE Stop: 02/21/20 14:05 Last Admin: 02/21/20 14:29 Dose: 25 mg Documented by: ALESSIA Promethazine HCl (Promethazine 25 Mg Prepack) 1 bottle MISC SEEINSTR ONE Stop: 02/21/20 15:42 Last Admin: 02/21/20 15:46 Dose: 1 bottle Documented by: ALESSIA Vital Signs Vital signs: Vital Signs - 8 hr 02/21/20 12:27 02/21/20 13:23 02/21/20 13:30 Temperature 98.4 F Pulse Rate 91 H 91 H 85 Respiratory Rate 16 23 Blood Pressure 140/85 123/71 126/67 Pulse Oximetry 99 97 95 02/21/20 13:52 02/21/20 14:00 02/21/20 14:31 Temperature Pulse Rate 90 88 89 Respiratory Rate 16 20 Blood Pressure 126/60 132/63 Pulse Oximetry 99 98 96 02/21/20 14:33 02/21/20 15:00 02/21/20 15:41 Temperature Pulse Rate 90 106 H 85 Respiratory Rate 21 23 16 Blood Pressure 124/66 131/69 136/71 Pulse Oximetry 98 99 98 02/21/20 16:21 Temperature Pulse Rate 88 Respiratory Rate 16 Blood Pressure 131/73 Pulse Oximetry 99 MDM - Nausea/Vomiting/Diarrhea <DIANA Flowers-MARCELLUS - Last Filed: 02/21/20 18:33> Lab Data Attestation: I reviewed the patient's lab results. Result diagrams: 02/21/20 12:30 02/21/20 12:30 Labs: Lab Results 02/21/20 02/21/20 02/21/20 Range/Units 12:30 12:30 13:32 WBC 7.0 (4.5-11.0) X10^3/uL RBC 4.93 (4.0-5.2) X10^6/uL Hgb 15.9 (12.0-16.0) g/dL Hct 47.4 H (36-46) % MCV 96.1 (80-100) fL MCH 32.3 (26-34) PG MCHC 33.6 (30-36) % RDW 13.9 (11.6-14.8) % Plt Count 309 (150-400) X10^3/uL Neut % (Auto) 61.2 (50-75) % Lymph % (Auto) 28.2 (25-40) % Wright % (Auto) 8.9 (3-14) % Eos % (Auto) 0.6 L (2-4) % Baso % (Auto) 1.1 (0-2) % Neut # (Auto) 4300 (6876-6757) /uL Lymph # (Auto) 2000 (1603-0603) /uL Wright # (Auto) 600 (0-900) /uL Eos # (Auto) 0 (0-450) /uL Baso # (Auto) 100 (0-100) /uL Sodium 139 (137-145) mmol/L Potassium 4.1 (3.4-5.1) mmol/L Chloride 105 (98-107) mmol/L Carbon Dioxide 30 (22-32) mmol/L BUN 6 L (7-17) mg/dL Creatinine 0.54 (0.52-1.04) mg/dL Estimated GFR > 60.0 (>60) mL/min BUN/Creatinine Ratio 11.1 (6-22) Glucose 118 H (70-100) mg/dL Calcium 10.3 H (8.4-10.2) mg/dL Magnesium 1.6 (1.6-2.3) mg/dL Total Bilirubin 0.8 (0.2-1.3) mg/dL AST 28 (14-36) IU/L ALT 47 H (<35) IU/L Alkaline Phosphatase 127 H (38-126) U/L Total Protein 7.8 (6.3-8.2) g/dL Albumin 4.5 (3.5-5.0) g/dL Globulin 3.3 (1.7-4.1) g/dL Albumin/Globulin Ratio 1.4 (1.0-2.8) Amylase 75 (30-110) U/L Lipase 55 (23-300) U/L U Opiates 300ng/mL cut Positive H (Negative) Ur Oxycodone Screen Positive H (Negative) Urine Methadone Screen Negative (Negative) Ur Barbiturates Screen Negative (Negative) U Tricyclic Antidepress Negative (Negative) Ur Phencyclidine Scrn Negative (Negative) Ur Amphetamines Screen Negative (Negative) U Methamphetamines Scrn Negative (Negative) Ur MDMA Scrn (Ecstasy) Negative (Negative) U Benzodiazepines Scrn Positive H (Negative) Urine Cocaine Screen Negative (Negative) U Marijuana (THC) Screen Positive H (Negative) Point of Care Testing Test Results Negative Urine Dip Bedside Urine Glucose Negative Bedside Urine Bilirubin - Negative Bedside Urine Ketone - Negative Urine Specific [place] 1.015 Bedside Urine Occult Blood - Negative Bedside Urine pH 7.5 Bedside Urine Protein - Negative Bedside Urine Urobilinogen - Negative Bedside Urine Nitrite - Negative Bedside Urine Leukocytes - Negative Esterase Imaging Data Abdominal x-ray: Radiologist's Impression: [address] [place] [id number] ReportSigned Patient: Mildred Charles LMR#: [id number]: 1980Acct:[id number]/Sex: 39 / FDate of Service: 02/21/20Loc: EDAccession Number: [id number] Procedure: XR acute abdomen series Ordering Provider: Staci Garduno PROCEDURE: XR ACUTE ABDOMEN SERIES INDICATIONS: severe vomiting TECHNIQUE: One view chest and two views of the abdomen were acquired. COMPARISON: [facility], CR, XR ABDOMEN 1 VIEW, 01/19/2018, 20:15. [facility], CT, CT ABDOMEN PELVIS WITH CONTRAST, 09/11/2014, 14:48. FINDINGS: Surgical changes and devices: Cervical spine fixation hardware in lumbar spine this can be seen. Cholecystectomy clips are seen. Chest: Lungs are clear. Heart size is normal. No pleural effusions. No pneumoperitoneum. Abdomen: Bowel gas pattern is normal. No suspicious calcifications. Visualized solid organ contours appear normal. Bones: No suspicious bony lesions. IMPRESSION: A nonobstructive bowel gas pattern is seen. As clinically appropriate, please consider a repeat plain film study or a dedicated CT of the abdomen and pelvis, if the patient's symptoms persist or worsen. Postoperative changes are seen. Dictated by: Ramon Madden M.D. on 02/21/2020 at 12:14 Approved by: Ramon Madden M.D. on 02/21/2020 at 12:16 [facility] Narrative Medical decision making narrative: The patient is a 39-year-old female who presents with a chief complaint of persistent nausea and vomiting since her cervical fusion on the of this month. The patient's overall lab work is reassuring, she has no evidence of hypokalemia, normal electrolytes. She has no leukocytosis with a white blood cell count of 7.0. She is also normotensive, not grossly tachycardic. Her x-ray is no acute findings. Her urine has no signs or symptoms of infection. The patient states her nausea feels much improved after the above-stated therapies, and request pain medication. Acetaminophen was offered, I spoke with Dr Thomson regarding the patient's care and plan, any he states that we do not treat chronic pain in the emergency department per hospital policy. I discussed this at length with patient, she states she is aware, but ?thought I would ask. I did discussed however that I could help control her nausea is so she can take her home pain medications. During her emergency department stay, the patient states she messaged her pain control physician who sent in a prescription of oxycodone today. She has had multiple emergency department visits, and has an SOPHIA report illustrating dispensing 40 tablets of oxycodone 10 mg on 02/01, thirty tablets of hydrocodone 4 mg on 02/01, fifty six tablets of hydromorphone 4 mg on 02/08, 30 tablets of oxycodone 10mg on 02/13 and 112 tablets of hydromorphone 4 mg on 02/13. I offered a social work consult, but the patient states that she has had those before and does not find them helpful. I encouraged her to follow up with primary care physician as well as her bait painter. Also encouraged her to keep her orthopedic appointment, as she missed her postoperative appointment. She is able to tolerate a p.o. trial thank keep down multiple sips of water, though states she is nervous to go home as she is concerned that ?she will get nauseous again,.I discussed at length that I could not admit her and the possibility that she might get nauseous again, gave her prescriptions of ondansetron as well as Phenergan suppositories. Patient has been hemodynamically stable throughout her stay in the emergency department. Pre discharge discussion done with Staci VILLATORO at bedside. Patient states understanding, discussed that she could come to the ER for acute concerns patient boyfriend have no questions upon discharge and state understanding return precautions as well as follow-up care. <Alireza Thomson, DO - Last Filed: 02/26/20 17:56> Lab Data Labs: Lab Results 02/21/20 02/21/20 02/21/20 Range/Units 12:30 12:30 13:32 WBC 7.0 (4.5-11.0) X10^3/uL RBC 4.93 (4.0-5.2) X10^6/uL Hgb 15.9 (12.0-16.0) g/dL Hct 47.4 H (36-46) % MCV 96.1 (80-100) fL MCH 32.3 (26-34) PG MCHC 33.6 (30-36) % RDW 13.9 (11.6-14.8) % Plt Count 309 (150-400) X10^3/uL Neut % (Auto) 61.2 (50-75) % Lymph % (Auto) 28.2 (25-40) % Wright % (Auto) 8.9 (3-14) % Eos % (Auto) 0.6 L (2-4) % Baso % (Auto) 1.1 (0-2) % Neut # (Auto) 4300 (1058-7279) /uL Lymph # (Auto) 2000 (2911-7476) /uL Wright # (Auto) 600 (0-900) /uL Eos # (Auto) 0 (0-450) /uL Baso # (Auto) 100 (0-100) /uL Sodium 139 (137-145) mmol/L Potassium 4.1 (3.4-5.1) mmol/L Chloride 105 (98-107) mmol/L Carbon Dioxide 30 (22-32) mmol/L BUN 6 L (7-17) mg/dL Creatinine 0.54 (0.52-1.04) mg/dL Estimated GFR > 60.0 (>60) mL/min BUN/Creatinine Ratio 11.1 (6-22) Glucose 118 H (70-100) mg/dL Calcium 10.3 H (8.4-10.2) mg/dL Magnesium 1.6 (1.6-2.3) mg/dL Total Bilirubin 0.8 (0.2-1.3) mg/dL AST 28 (14-36) IU/L ALT 47 H (<35) IU/L Alkaline Phosphatase 127 H (38-126) U/L Total Protein 7.8 (6.3-8.2) g/dL Albumin 4.5 (3.5-5.0) g/dL Globulin 3.3 (1.7-4.1) g/dL Albumin/Globulin Ratio 1.4 (1.0-2.8) Amylase 75 (30-110) U/L Lipase 55 (23-300) U/L U Opiates 300ng/mL cut Positive H (Negative) Ur Oxycodone Screen Positive H (Negative) Urine Methadone Screen Negative (Negative) Ur Barbiturates Screen Negative (Negative) U Tricyclic Antidepress Negative (Negative) Ur Phencyclidine Scrn Negative (Negative) Ur Amphetamines Screen Negative (Negative) U Methamphetamines Scrn Negative (Negative) Ur MDMA Scrn (Ecstasy) Negative (Negative) U Benzodiazepines Scrn Positive H (Negative) Urine Cocaine Screen Negative (Negative) U Marijuana (THC) Screen Positive H (Negative) Point of Care Testing Test Results Negative Urine Dip Bedside Urine Glucose Negative Bedside Urine Bilirubin - Negative Bedside Urine Ketone - Negative Urine Specific [place] 1.015 Bedside Urine Occult Blood - Negative Bedside Urine pH 7.5 Bedside Urine Protein - Negative Bedside Urine Urobilinogen - Negative Bedside Urine Nitrite - Negative Bedside Urine Leukocytes - Negative Esterase Discharge Plan Departure Patient Disposition: Home Clinical Impression: Nausea & vomiting Qualifiers: Vomiting type: unspecified Vomiting Intractability: non-intractable Qualified Code(s): R11.2 - Nausea with vomiting, unspecified Instructions: DI for Nausea -- Adult, DI for Vomiting -- Adult, Nausea and Vomiting-Adult Activity Restrictions/Additional Instructions: Thank you for trusting us with your care today. As discussed, your imaging and lab work came back very reassuring. Your electrolytes are good, and your urine has no signs of infection. Please follow-up with your orthopedist as scheduled, as well as your primary care provider and your pain specialist I sent 2 prescriptions to [facility] in [place]. Unfortunately they are closed, but we have given take-home packs of these medications in oral form. However I sent a prescription of promethazine suppositories for you to use. I suggest small frequent sips of room temperature fluids. Focus more on fluid than solid food. Please rest over the next few days. Prescriptions: New ondansetron 4 mg tablet,disintegrating 4 mg PO Q6H PRN (Reason: nausea and vomiting) Qty: 20 RF: 0 promethazine 25 mg suppository 25 mg KS Q4-6H PRN (Reason: nausea and vomiting) Qty: 12 RF: 0 No Action albuterol sulfate 2.5 mg /3 mL (0.083 %) Solution For Nebulization 2.5 mg INHALATION Q4-6H PRN (Reason: Asthma) RF: 0 montelukast [Singulair] 10 mg Tablet 10 mg PO BEDTIME RF: 0 albuterol sulfate 90 mcg/actuation Hfa Aerosol Inhaler 2 puff INHALATION Q4-6H PRN (Reason: Shortness Of Breath) RF: 0 ketamine 100 mg Herlinda 100 - 300 mg SUBLINGUAL DAILY MDD 300mg PRN (Reason: depression) RF: 0 diazepam [Valium] 5 mg Tablet 5 - 10 mg PO QID PRN (Reason: Spasms) RF: 0 acetaminophen 325 mg Tablet 650 mg PO Q6HR PRN (Reason: Pain, Mild (1-3)) Qty: 60 RF: 0 docusate sodium [DOK] 100 mg Capsule 100 mg PO BID Qty: 30 RF: 0 hydromorphone 4 mg Tablet 4 mg PO Q3HR PRN (Reason: Pain) Qty: 30 RF: 0 oxycodone 10 mg tablet 10 mg PO Q4H PRN (Reason: pain) Qty: 40 RF: 0 Referrals: Nette Garces, SHAMEKA, VISITOR INFORMATION ASSISTANT [Primary Care Provider] - <Alireza Thomson DO - Last Filed: 02/26/20 17:56> Cosign ED Attending Cosignature Attestation: Dr Thomson Co-Sign Statement: I was available for consultation during this patient's emergency department visit. This chart is signed by myself for administrative purposes only. I did not have direct contact with this patient during this visit. They were seen independently by the APC.
[2020-02-21] MEDS: LORazepam 2 MG/ML INJ 1 MG IV (13:17)
--- NOTE | 2020-02-21 13:45 | PC.NURSE ---
Patient presents with flat affect states has had nausea/vomiting since surgery on 02/01/2020. Affirms weakness in arms and headache/neck pain with 5/10 pain on pain scale. Denies chest pain or fever. Patient on monitor with IV fluids infusing and call light within reach.
[2020-02-21 13:56] LABS: UR Morphine/Opiate cutoff 300 Positive (Negative); Ur Creatinine Normal (Normal); Ur Specific Gravity Normal (Normal); Urine Amphetamines Negative (Negative); Urine Barbiturates Negative (Negative); Urine Benzodiazepines Positive (Negative); Urine Cocaine Negative (Negative); Urine MDMA Negative (Negative); Urine Methadone Negative (Negative); Urine Methamphetamines Negative (Negative); Urine Oxycodone Positive (Negative); Urine Phencyclidine Negative (Negative); Urine Tetrahydrocannabinol Positive (Negative); Urine Tricyclic Antidepressant Negative (Negative); Urine pH Normal (Normal)
[2020-02-21] MEDS: PANTOPRAZOLE 40 MG VIAL IV (14:27)
[2020-02-21] MEDS: diphenhydrAMINE 50 MG/ML VIAL IV (14:29)
[2020-02-21] MEDS: PROMETHAZINE 25 MG SUPP PR (14:29)
--- NOTE | 2020-02-21 15:20 | PC.NURSE ---
Patient is upset about her pain. Patient says she is being ignored and does not want pain medications to go home with, but also states she cannot just use tylenol/ibuprofen as explained by the provider. I updated the provider.
--- NOTE | 2020-02-21 15:39 | PC.NURSE ---
Patient given water for PO trial. Tolerated keeping small sips down with no vomiting. Provider aware.
[2020-02-21] MEDS: LORazepam 2 MG/ML INJ 0.5 MG IV (15:45)
[2020-02-21] MEDS: ONDANSETRON 4 MG ODT PREPACK 1 BOTTLE MISC (15:46)
[2020-02-21] MEDS: PROMETHAZINE 25 MG PREPACK 1 BOTTLE MISC (15:46)
== END 2020-02-21 16:23 | disposition home or self-care (01) ==
PROVIDERS: Emergency Provider Nurse Practitioner Family; PCP Nurse Practitioner Family
DX: R11.2 Nausea with vomiting, unspecified (principal); Z98.890 Other specified postprocedural states
CPT/HCPCS: 36415; 74022; 80053; 80305; 81003; 81025; 82150; 83690; 83735; 85025; 96361; 96374; 96375; 96376; 99281; 99284; C9113; J1200; J2060; J2405

== ENCOUNTER 2020-11-08 20:45 | Emergency (ER) | payer MEDICARE, MEDICAID, SELFPAY ==
[2020-02-01 11:48] VITALS: BMI 29.5
[2020-11-08] VITALS (8 sets, daily range): BP systolic 118–139; BP diastolic 52–75; PULSE 76–104; RESP 20–24; TEMP 36.6; O2SAT 89–98
--- NOTE | 2020-11-08 21:02 | DI.RAD.S_ITS ---
PROCEDURE: XR HIP W PEL IF DONE LT 2V INDICATIONS: severe left hip pain,no known injury TECHNIQUE: AP pelvis with lateral view the left hip. COMPARISON: None. FINDINGS: Bones: No acute fractures or dislocations. Pelvic ring appears intact. No suspicious bony lesions. Postsurgical changes are seen in the included lower lumbar spine. Soft tissues: The visualized bowel gas pattern is normal. No suspicious soft tissue calcifications. IMPRESSION: No acute osseous abnormality. If clinical suspicion and/or symptoms persist, additional imaging with repeat plain films, or advanced imaging (e.g. CT, MRI) may be helpful for further assessment. Dictated by: Cristian Parrish M.D. on 11/08/2020 at 21:27 Approved by: Cristian Parrish M.D. on 11/08/2020 at 21:28
--- NOTE | 2020-11-08 22:09 | ED.EXTPRO ---
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 She has is been worse over the last 2 days. She denies any fever chills numbness tingling or weakness. She feels like in her back there is a dent in may be a bar is pushing on things it is quite painful. Sometimes she is unable to walk. She takes dilaudid at home for pain. She also feels like maybe her POTS syndrome is out of control heart rate is quite variable currently on the monitor. She is requesting bag of fluid and pain medication. He really does not have hip pain but sometimes pain from her back radiates to her left hip. She has no changes in bowel or bladder habits. She also recently had a left Aparicio's neuroma surgery pain left foot is in an orthopedic shoe Related Data Home Medications Medication Instructions Recorded Confirmed albuterol sulfate 2.5 mg INHALATION Q4-6H PRN 09/24/19 01/25/20 albuterol sulfate 90 mcg/actuation 2 puff INHALATION Q4-6H PRN 09/24/19 01/25/20 aerosol inhaler ketamine 100 mg sublingual jerzy 100 - 300 mg SUBLINGUAL DAILY PRN 09/24/19 01/25/20 MDD 300mg montelukast 10 mg tablet 10 mg PO BEDTIME 09/24/19 02/01/20 (Singulair) diazepam 5 mg tablet (Valium) 5 - 10 mg PO QID PRN 01/25/20 02/01/20 Previous Rx's Medication Instructions Recorded acetaminophen 325 mg tablet 650 mg PO Q6HR PRN #60 tab 02/02/20 docusate sodium 100 mg capsule 100 mg PO BID #30 cap 02/02/20 (DOK) hydromorphone 4 mg tablet 4 mg PO Q3HR PRN #30 tab 02/02/20 oxycodone 10 mg tablet 10 mg PO Q4H PRN #40 tab 02/02/20 ondansetron 4 mg disintegrating 4 mg PO Q6H PRN #20 tab 02/21/20 tablet promethazine 25 mg rectal 25 mg IN Q4-6H PRN #12 ea 02/21/20 suppository Allergies Allergy/AdvReac Type Severity Reaction Status Date / Time azithromycin Allergy Severe Hives Verified 02/04/20 11:02 ciprofloxacin Allergy Severe Hives Verified 02/04/20 11:02 erythromycin base Allergy Severe Hives, Verified 02/04/20 11:02 Shortness of breath lamotrigine [From Lamictal] Allergy Intermediate Hives Verified 02/04/20 11:02 ketorolac [From Toradol] Allergy Mild Hives, Verified 02/04/20 11:02 shortness of breath, mood swings Penicillins Allergy Mild Hives Verified 02/04/20 11:02 tramadol Allergy Mild Hives Verified 02/04/20 11:02 adhesive tape AdvReac Severe Takes my Verified 02/04/20 11:02 skin off, paper/silk tape ok citalopram AdvReac Severe Tachycardia Verified 02/04/20 11:02 metoclopramide [From Reglan] AdvReac Severe GI Verified 02/04/20 11:02 intolerance, Tachycardia prochlorperazine AdvReac Severe It's like Verified 02/04/20 11:02 [From Compazine] I have a seizure, everything locks up beclomethasone AdvReac Intermediate Shortness Verified 02/04/20 11:02 of Breath red meat AdvReac Severe Projectile Uncoded 02/04/20 11:02 vomiting Review of Systems Review of Systems Narrative: GENERAL: Denies chills, fatigue, malaise, fever, sweats, travel HEENT: Denies sinus pain, ear pain, sore throat, difficulty swallowing, neck pain RESPIRATORY: Denies dyspnea, cough, wheezing, hemoptysis, sputum. CARDIOVASCULAR: Denies chest pain, palpitations, orthopnea, edema GASTROINTESTINAL: Denies nausea, vomiting, abdominal pain, diarrhea, constipation, melena. : Denies dysuria, frequency, incontinence, hematuria, urinary retention, flank pain. MUSCULOSKELETAL: See HPI SKIN: No rash, no erythema, no pruritus NEUROLOGIC: Denies weakness, dizziness, headache, numbness, change in speech, confusion PSYCHIATRIC: No concerning psychosocial issues. 12 point review of systems is negative except for those stated above and HPI Patient History Medical History (Updated 11/09/20 @ 01:14 by Sade Foster DO) Anemia Anxiety Asthma Bipolar 1 disorder Chronic pain disorder Depression Easy bruisability Andreea-Danlos syndrome Fragile skin Hypokalemia Hypotension Kidney stones Nerve damage Postural orthostatic tachycardia syndrome (01/24/20) PTSD (post-traumatic stress disorder) Seasonal allergies Skin abnormalities Spinal stenosis TMJ derangement Surgical History History of hysterectomy History of lumbar fusion (10/01/19) History of surgery (05/09/17) Hx of cholecystectomy Hx of foot surgery Hx of toe surgery (03/30/19) S/P cervical spinal fusion (2015) Family History Father Smoker Mother History of ETOH abuse Brother Andreea-Danlos syndrome Sister Medical history unknown Social History household members: significant other Smoking Status: Never smoker alcohol intake: current Smoking Status: Never smoker alcohol intake frequency: a few times a week Substance Use Type: marijuana Exam Initial Vital Signs Initial Vital Signs: Vital Signs Temperature 97.9 F 11/08/20 20:57 Pulse Rate 104 H 11/08/20 20:57 Respiratory Rate 20 11/08/20 20:57 Blood Pressure 123/58 L 11/08/20 20:57 Pulse Oximetry 97 11/08/20 20:57 GENERAL: Alert 40-year-old female slightly anxious HEENT: Head atraumatic,EOMI, pupils reactive, face symmetric, moist mucous membranes CARDIOVASCULAR: Regular rate and rhythm without murmurs, rubs or gallops. RESPIRATORY: Breath sounds equal bilaterally, no wheezes rales or rhonchi. ABDOMEN: Soft, nontender. Normoactive bowel sounds all 4 quadrants. No guarding or rebound. BACK: Lumbar Surgical scars are noted bilaterally. She has pinpoint tenderness on the left, pain is reproducible with palpation. No erythema, no midline pain EXTREMITIES: Normal range of motion, no clubbing or edema. Neurovascularly intact. Left hip is nontender able to internally and externally rotate distal pedal pulses intact, sensation in lower extremities at baseline. Left foot is warm his I a.m. able to find a distal pedal pulse. Dressing an orthopedic shoe her and place. NEUROLOGICAL: Alert and oriented x4.Normal gait and speech. SKIN: Warm, dry, no laceration, no petechiae, no rashes or lesions. Course Orders Ordered: ED Orders 11/08/20 21:02 XR hip w pel if done LT 2V Stat 11/08/20 22:28 XR lumbar spine 2-3V Stat 11/08/20 22:40 Complete Blood Count AUTO DIFF Stat Comprehensive Metabolic Panel Stat Discontinued Medications Hydromorphone HCl (Hydromorphone 1 Mg Inj) 1 mg IV NOW ONE Stop: 11/08/20 22:29 Last Admin: 11/08/20 22:45 Dose: 1 mg Documented by: THUAN Hydromorphone HCl (Hydromorphone 1 Mg Inj) 1 mg IV NOW ONE Stop: 11/09/20 01:05 Last Admin: 11/09/20 01:11 Dose: 1 mg Documented by: UNIQUE Sodium Chloride (Normal Saline 0.9%) 1,000 mls @ 1,000 mls/hr IV BOLUS ONE Stop: 11/08/20 23:27 Last Infusion: 11/09/20 00:14 Dose: 0 mls/hr Documented by: Admin: 11/08/20 22:45 Dose: 1,000 mls/hr Documented by: THUAN Vital Signs Vital signs: Vital Signs - 8 hr 11/08/20 21:55 11/08/20 21:57 11/08/20 22:00 Pulse Rate 94 H 97 H 104 H Respiratory Rate 24 Blood Pressure 139/72 118/67 Pulse Oximetry 98 98 97 11/08/20 22:30 11/08/20 22:56 11/08/20 23:00 Pulse Rate 97 H 76 84 Respiratory Rate Blood Pressure 121/75 135/52 L 129/60 Pulse Oximetry 98 89 L 95 11/08/20 23:30 11/09/20 00:00 11/09/20 00:30 Pulse Rate 89 93 H 109 H Respiratory Rate Blood Pressure 121/57 L 123/60 118/62 Pulse Oximetry 97 99 97 11/09/20 01:00 Pulse Rate 98 H Respiratory Rate Blood Pressure 109/56 L Pulse Oximetry 95 MDM - Extremity (Nontraumatic) Lab Data Result diagrams: 11/08/20 22:40 11/08/20 22:40 Labs: Lab Results 11/08/20 11/08/20 Range/Units 22:40 22:40 WBC 9.3 (4.5-11.0) X10^3/uL RBC 5.06 (4.0-5.2) X10^6/uL Hgb 16.3 H (12.0-16.0) g/dL Hct 49.4 H (36-46) % MCV 97.5 (80-100) fL MCH 32.2 (26-34) PG MCHC 33.0 (30-36) % RDW 13.6 (11.6-14.8) % Plt Count 267 (150-400) X10^3/uL Neut % (Auto) 62.8 (50-75) % Lymph % (Auto) 26.5 (25-40) % Callahan % (Auto) 10.1 (3-14) % Eos % (Auto) 0.1 L (2-4) % Baso % (Auto) 0.5 (0-2) % Neut # (Auto) 5800 (7794-4896) /uL Lymph # (Auto) 2500 (8683-1689) /uL Callahan # (Auto) 900 (0-900) /uL Eos # (Auto) 0 (0-450) /uL Baso # (Auto) 0 (0-100) /uL Sodium 139 (137-145) mmol/L Potassium 3.7 (3.4-5.1) mmol/L Chloride 101 (98-107) mmol/L Carbon Dioxide 29 (22-32) mmol/L BUN 4 L (7-17) mg/dL Creatinine 0.50 L (0.52-1.04) mg/dL Estimated GFR > 60.0 (>60) mL/min BUN/Creatinine Ratio 8.0 (6-22) Glucose 118 H (70-100) mg/dL Calcium 10.1 (8.4-10.2) mg/dL Total Bilirubin 0.7 (0.2-1.3) mg/dL AST 25 (14-36) IU/L ALT 23 (<35) IU/L Alkaline Phosphatase 87 (38-126) U/L Total Protein 7.4 (6.3-8.2) g/dL Albumin 4.5 (3.5-5.0) g/dL Globulin 2.9 (1.7-4.1) g/dL Albumin/Globulin Ratio 1.6 (1.0-2.8) Imaging Data Extremity x-ray #1: Radiologist's Impression: PROCEDURE: XR HIP W PEL IF DONE LT 2V INDICATIONS: severe left hip pain,no known injury TECHNIQUE: AP pelvis with lateral view the left hip. COMPARISON: None. FINDINGS: Bones: No acute fractures or dislocations. Pelvic ring appears intact. No suspicious bony lesions. Postsurgical changes are seen in the included lower lumbar spine. Soft tissues: The visualized bowel gas pattern is normal. No suspicious soft tissue calcifications. IMPRESSION: No acute osseous abnormality. If clinical suspicion and/or symptoms persist, additional imaging with repeat plain films, or advanced imaging (e.g. CT, MRI) may be helpful for further assessment. Dictated by: Cristian Parrish M.D. on 11/08/2020 at 21:27 Extremity x-ray #2: Radiologist's Impression: Preliminary report No acute fracture of lumbar spine. Remote surgical changes of posterior fusion at L3-L4 with interval disc spacer device at this level. Trace retrolisthesis of L3-L4. Spondylitic change including facet arthropathy at L4-L5 and L5-S1. Minimal intervertebral disc height loss greatest at L5-S1 MDM Narrative Medical decision making narrative: Patient's pain is reproducible to touch she has chronic ongoing pain. She does have Andreea Danlos syndrome which does put her at risk for dissection however at this time with reproducible back pain with palpation and normal blood pressure I do not believe this to be the reason today for her back pain. She has no red flag symptoms including weakness, change in bowel or bladder habits fever or midline pain. Blood work is reassuring she is given a L of fluid and 1 mg of Dilaudid. I have discussed results with her and she immediately is requesting a 2nd dose of Dilaudid. She understands I will not be writing her a prescription for any pain medication which she is not requesting at this time. She really does feel like hardware has may be removed. X-ray does not show that it has so at this time I recommend she follow-up with her orthopedic surgeon Discharge Plan Departure Patient Disposition: Home Clinical Impression: Acute exacerbation of chronic low back pain Instructions: DI for Low Back Pain Activity Restrictions/Additional Instructions: *You have been diagnosed with acute on chronic low back *What to do: At this time please follow-up with your surgeon find pain management doctors *Continue to take medications as directed *Follow up with your primary care provider in 2-3 days *Return to ER if you should have loss of bowel or urine, increased leg weakness, increasing numbness, fever morning 100.4 or any new, worsening or concerning symptoms Prescriptions: No Action albuterol sulfate 2.5 mg /3 mL (0.083 %) Solution For Nebulization 2.5 mg INHALATION Q4-6H PRN (Reason: Asthma) RF: 0 montelukast [Singulair] 10 mg Tablet 10 mg PO BEDTIME RF: 0 albuterol sulfate 90 mcg/actuation Hfa Aerosol Inhaler 2 puff INHALATION Q4-6H PRN (Reason: Shortness Of Breath) RF: 0 ketamine 100 mg Jerzy 100 - 300 mg SUBLINGUAL DAILY MDD 300mg PRN (Reason: depression) RF: 0 diazepam [Valium] 5 mg Tablet 5 - 10 mg PO QID PRN (Reason: Spasms) RF: 0 acetaminophen 325 mg Tablet 650 mg PO Q6HR PRN (Reason: Pain, Mild (1-3)) Qty: 60 RF: 0 docusate sodium [DOK] 100 mg Capsule 100 mg PO BID Qty: 30 RF: 0 hydromorphone 4 mg Tablet 4 mg PO Q3HR PRN (Reason: Pain) Qty: 30 RF: 0 oxycodone 10 mg tablet 10 mg PO Q4H PRN (Reason: pain) Qty: 40 RF: 0 ondansetron 4 mg tablet,disintegrating 4 mg PO Q6H PRN (Reason: nausea and vomiting) Qty: 20 RF: 0 promethazine 25 mg suppository 25 mg IN Q4-6H PRN (Reason: nausea and vomiting) Qty: 12 RF: 0 Referrals: Nette Garces, SHAMEKA, AUDIO VISUAL COLLECTIONS COORDINATOR [Primary Care Provider] - Johnathon Warner MD [Physician] -
--- NOTE | 2020-11-08 22:28 | DI.RAD.S_ITS ---
PROCEDURE: XR LUMBAR SPINE 2-3V INDICATIONS: incrased pain left side at hardware site TECHNIQUE: 3 views of the lumbar spine were acquired. COMPARISON: Merged With [facility], CR, XR LUMBAR SPINE 2-3V, 11/10/2019, 18:50. FINDINGS: Bones: 5 [id number] vertebrae are present. There is normal bony alignment. No vertebral body compression fractures. No suspicious bony lesions. L3-4 interbody fusion graft with posterior glenn and screw instrumentation in good position. No evidence of hardware failure or loosening. Soft tissues: Overlying bowel gas pattern is normal. No suspicious soft tissue calcifications. Surgical clips noted in the right upper quadrant. IMPRESSION: L3-4 discectomy and fusion with posterior instrumentation in good position. Approved by: Erick Montague M.D. on 11/09/2020 at 6:27
[2020-11-08] MEDS: HYDROMORPHONE 1 MG INJ IV (22:45)
[2020-11-08] MEDS: SODIUM CHLORIDE 0.9% 1,000 ML 1000 ML IV (22:45)
[2020-11-08 22:52] LABS: Add Manual Diff / Slide Review NO; Basophils Absolute Auto 0 /uL (0-100); Basophils Percent Auto 0.5 % (0-2); Eosinophils Absolute Auto 0 /uL (0-450); Eosinophils Percent Auto 0.1 % (2-4); Hematocrit 49.4 % (36-46); Hemoglobin 16.3 g/dL (12.0-16.0); Lymphocytes Absolute Auto 2500 /uL (1100-4500); Lymphocytes Percent Auto 26.5 % (25-40); Mean Corpuscular Hemoglobin 32.2 PG (26-34); Mean Corpuscular Volume 97.5 fL (80-100); Monocytes Absolute Auto 900 /uL (0-900); Monocytes Percent Auto 10.1 % (3-14); Neutrophils Absolute Auto 5800 /uL (1500-7000); Neutrophils Percent Auto 62.8 % (50-75); Platelet Count 267 X10^3/uL (150-400); Red Blood Cell Count 5.06 X10^6/uL (4.0-5.2); Red Cell Distribution Width 13.6 % (11.6-14.8); White Blood Cell Count 9.3 X10^3/uL (4.5-11.0)
[2020-11-08 23:04] LABS: Alanine Aminotransferase 23 IU/L (<35); Albumin 4.5 g/dL (3.5-5.0); Albumin Globulin Ratio 1.6 (1.0-2.8); Alkaline Phosphatase 87 U/L (38-126); Aspartate Aminotransferase 25 IU/L (14-36); Bilirubin Total 0.7 mg/dL (0.2-1.3); Blood Urea Nitrogen 4 mg/dL (7-17); Calcium 10.1 mg/dL (8.4-10.2); Carbon Dioxide 29 mmol/L (22-32); Chloride 101 mmol/L (98-107); Estimated Glomerular Filt Rate > 60.0 mL/min (>60); Globulin 2.9 g/dL (1.7-4.1); Glucose 118 mg/dL (70-100); HEMOLYSIS 15 (0-50); Potassium 3.7 mmol/L (3.4-5.1); Sodium 139 mmol/L (137-145); Total Protein 7.4 g/dL (6.3-8.2)
[2020-11-09] VITALS: BP 123/60; PULSE 93; O2SAT 99
[2020-11-09 00:30] VITALS: BP 118/62; PULSE 109; O2SAT 97
[2020-11-09 01:00] VITALS: BP 109/56; PULSE 98; O2SAT 95
[2020-11-09] MEDS: HYDROMORPHONE 1 MG INJ IV (01:11)
== END 2020-11-09 01:18 | disposition home or self-care (01) ==
PROVIDERS: Emergency Provider Emergency Medicine; PCP Nurse Practitioner Family
DX: M54.5 Low back pain (principal); M25.552 Pain in left hip; Q79.61 Classical Ehlers-Danlos syndrome
CPT/HCPCS: 36415; 72100; 73502; 80053; 85025; 96361; 96374; 96376; 99284; J1170

== ENCOUNTER 2022-02-08 15:06 | Emergency (ER) | payer MEDICARE, MEDICAID, SELFPAY ==
[2020-02-01 11:48] VITALS: BMI 29.5
[2022-02-08] VITALS (18 sets, daily range): BP systolic 108–147; BP diastolic 52–69; PULSE 73–98; RESP 13–26; TEMP 37.3; O2SAT 94–99
[2022-02-08 15:47] LABS: Add Manual Diff / Slide Review NO; Basophils Absolute Auto 0 /uL (0-100); Basophils Percent Auto 0.6 % (0-2); Eosinophils Absolute Auto 100 /uL (0-450); Eosinophils Percent Auto 1.1 % (2-4); Hematocrit 40.5 % (36-46); Hemoglobin 13.4 g/dL (12.0-16.0); Lymphocytes Absolute Auto 1500 /uL (1100-4500); Lymphocytes Percent Auto 26.5 % (25-40); Mean Corpuscular HGB Conc 33.1 % (30-36); Mean Corpuscular Hemoglobin 32.9 PG (26-34); Mean Corpuscular Volume 99.4 fL (80-100); Monocytes Absolute Auto 500 /uL (0-900); Monocytes Percent Auto 8.7 % (3-14); Neutrophils Absolute Auto 3500 /uL (1500-7000); Neutrophils Percent Auto 63.1 % (50-75); Platelet Count 201 X10^3/uL (150-400); Red Blood Cell Count 4.07 X10^6/uL (4.0-5.2); Red Cell Distribution Width 13.2 % (11.6-14.8); White Blood Cell Count 5.6 X10^3/uL (4.5-11.0)
[2022-02-08 16:02] LABS: Alanine Aminotransferase 14 IU/L (<35); Albumin 3.8 g/dL (3.5-5.0); Albumin Globulin Ratio 1.5 (1.0-2.8); Alkaline Phosphatase 95 U/L (38-126); Aspartate Aminotransferase 17 IU/L (14-36); BUN Creatinine Ratio 14.3 (6-22); Bilirubin Total 0.6 mg/dL (0.2-1.3); Blood Urea Nitrogen 7 mg/dL (7-17); Calcium 9.3 mg/dL (8.4-10.2); Carbon Dioxide 29 mmol/L (22-32); Chloride 102 mmol/L (98-107); Estimated Glomerular Filt Rate > 60 mL/min (>60); Globulin 2.5 g/dL (1.7-4.1); Glucose 141 mg/dL (70-100); HEMOLYSIS < 15 (0-50); Lipase 40 U/L (23-300); Magnesium 1.5 mg/dL (1.6-2.3); Potassium 3.6 mmol/L (3.4-5.1); Sodium 138 mmol/L (137-145); Total Protein 6.3 g/dL (6.3-8.2)
[2022-02-08] MEDS: SODIUM CHLORIDE 0.9% 1,000 ML 1000 ML IV (17:05)
[2022-02-08 17:18] LABS: Pregnancy Test Serum,Qual Negative (Negative)
[2022-02-08] MEDS: ONDANSETRON 4 MG/2 ML INJ IV (17:51)
[2022-02-08 18:25] LABS: Phosphorous 2.5 mg/dL (2.5-4.5)
--- NOTE | 2022-02-08 18:56 | ED.NAVMDI ---
HPI - Nausea/Vomiting/Diarrhea <Faustina Macias PA-C - Last Filed: 02/08/22 20:15> General Chief complaint: Nausea/Vomiting/Diarrhea Stated complaint: VOMITING/ABD. PAIN/HEART RACING Time Seen by Provider: 02/08/22 16:49 Source: patient Mode of arrival: Ambulatory History of Present Illness HPI Narrative: 41-year-old female with past medical history pots, Andreea-Danlos syndrome, asthma presents to the ED with 4 days of intractable vomiting. Patient was seen at an ED in [place] last week for the same complaint, was treated for hypomagnesemia and hypo kalemia due to repeated vomiting. Patient had a surgery for her Achilles tendon a month ago, for which she is taking morphine for pain control. Patient also uses marijuana for pain. Patient tried Zofran for her nausea with no relief. Patient has a port for infusing saline at home for her POTS. Patient states that she has been hydrating with saline daily. Patient denies fever, chills, chest pain, shortness of breath, abdominal pain, dysuria, syncope. Related Data Home Medications Medication Instructions Recorded Confirmed albuterol sulfate 2.5 mg/3 mL 2.5 mg inhalation Q4-6H PRN Asthma 09/24/19 01/25/20 (0.083 %) solution for nebulization albuterol sulfate 90 mcg/actuation 2 puff inhalation Q4-6H PRN 09/24/19 01/25/20 aerosol inhaler Shortness Of Breath ketamine 100 mg sublingual jerzy 100 - 300 mg sublingual DAILY PRN 09/24/19 01/25/20 depression montelukast 10 mg tablet 10 mg PO BEDTIME 09/24/19 02/01/20 (Singulair) diazepam 5 mg tablet (Valium) 5 - 10 mg PO QID PRN Spasms 01/25/20 02/01/20 Previous Rx's Medication Instructions Recorded acetaminophen 325 mg tablet 650 mg PO Q6HR PRN Pain, Mild 02/02/20 (1-3) #60 tabs docusate sodium 100 mg capsule 100 mg PO BID #30 caps 02/02/20 (DOK) hydromorphone 4 mg tablet 4 mg PO Q3HR PRN Pain #30 tabs 02/02/20 oxycodone 10 mg tablet 10 mg PO Q4H PRN pain #40 tabs 02/02/20 ondansetron 4 mg disintegrating 4 mg PO Q6H PRN nausea and 02/21/20 tablet vomiting #20 tabs promethazine 25 mg rectal 25 mg [place] Q4-6H PRN nausea and 02/21/20 suppository vomiting #12 ea Allergies Allergy/AdvReac Type Severity Reaction Status Date / Time azithromycin Allergy Severe Hives Verified 02/04/20 11:02 ciprofloxacin Allergy Severe Hives Verified 02/04/20 11:02 erythromycin base Allergy Severe Hives, Verified 02/04/20 11:02 Shortness of breath lamotrigine [From Lamictal] Allergy Intermediate Hives Verified 02/04/20 11:02 ketorolac [From Toradol] Allergy Mild Hives, Verified 02/04/20 11:02 shortness of breath, mood swings Penicillins Allergy Mild Hives Verified 02/04/20 11:02 tramadol Allergy Mild Hives Verified 02/04/20 11:02 adhesive tape AdvReac Severe Takes my Verified 02/04/20 11:02 skin off, paper/silk tape ok citalopram AdvReac Severe Tachycardia Verified 02/04/20 11:02 metoclopramide [From Reglan] AdvReac Severe GI Verified 02/04/20 11:02 intolerance, Tachycardia prochlorperazine AdvReac Severe It's like Verified 02/04/20 11:02 [From Compazine] I have a seizure, everything locks up beclomethasone AdvReac Intermediate Shortness Verified 02/04/20 11:02 of Breath red meat AdvReac Severe Projectile Uncoded 02/04/20 11:02 vomiting Review of Systems <Faustina Macias PA-C - Last Filed: 02/08/22 20:15> Review of Systems ROS Unobtainable: All systems reviewed & are unremarkable except as noted in HPI and below Constitutional Constitutional: Denies chills, Denies fatigue, Denies fever(s), Denies frequent falls, Reports lethargy and Reports weakness Eyes Eyes: Denies change in vision, Denies eye discharge, Denies irritation and Denies loss of vision ENT Ears, Nose, Mouth, and Throat: Denies change in voice, Denies dizziness, Denies neck pain, Denies sore throat and Denies throat swelling Cardiovascular Cardiovascular: Denies chest pain, Denies irregular heart rhythm, Denies lightheadedness, Denies palpitations, Denies dyspnea, Denies dyspnea on exertion and Denies orthopnea Respiratory Respiratory: Denies cough, Denies dyspnea, Denies dyspnea on exertion and Denies wheezing Gastrointestinal Gastrointestinal: Denies abdominal pain, Denies change in bowel habits, Denies diarrhea, Reports nausea and Reports vomiting Genitourinary Genitourinary: Denies hematuria, Denies flank pain, Denies urinary incontinence and Denies urinary urgency Musculoskeletal Musculoskeletal: Denies back pain, Denies muscle weakness, Denies neck pain, Denies numbness and Denies tingling Integumentary/Breasts Skin/Breast: Denies pruritus, Denies erythema, Denies rash and Denies wounds Neurologic Neurologic: Denies behavioral changes, Denies confusion, Denies dizziness, Denies frequent falls, Denies loss of vision, Denies numbness, Denies tingling and Reports weakness Psychiatric Psychiatric: Denies anxiety, Denies behavioral changes, Denies confusion, Denies depression, Denies homicidal ideation and Denies suicidal ideation Endocrine Endocrine: Denies fatigue, Denies flushing and Denies palpitations Hematologic/Lymphatic Hematologic/Lymphatic: Denies easy bruising Allergic/Immunologic Allergic/Immunologic: Denies urticaria, Denies throat swelling and Denies wheezing Patient History <Faustina Macias PA-C - Last Filed: 02/08/22 20:15> Medical History (Updated 02/08/22 @ 20:58 by Alireza Thomson DO) Anemia Anxiety Asthma Bipolar 1 disorder Chronic pain disorder Depression Easy bruisability Andreea-Danlos syndrome Fragile skin Hypokalemia Hypotension Kidney stones Nerve damage Postural orthostatic tachycardia syndrome (01/24/20) PTSD (post-traumatic stress disorder) Seasonal allergies Skin abnormalities Spinal stenosis TMJ derangement Surgical History History of hysterectomy History of lumbar fusion (10/01/19) History of surgery (05/09/17) Hx of cholecystectomy Hx of foot surgery Hx of toe surgery (03/30/19) S/P cervical spinal fusion (2015) Family History Father Smoker Mother History of ETOH abuse Brother Andreea-Danlos syndrome Sister Medical history unknown Social History household members: significant other Smoking Status: Never smoker alcohol intake: current Smoking Status: Never smoker alcohol intake frequency: a few times a week Substance Use Type: marijuana Exam <Faustina Macias PA-C - Last Filed: 02/08/22 20:15> Narrative Exam Narrative: Const General:?cooperative, healthy appearing and comfortable HENMT Head:?normal to inspection Ears:?hearing grossly normal bilaterally Nose:?external nose normal Face and sinus:?normal facial exam and sinuses nontender Mouth:?oral mucosae normal Throat:?posterior oropharynx normal Eyes General:?appearance normal, both eyes and all related structures Neck Neck:?normal visual inspection and no lymphadenopathy noted Resp Effort & Inspection:?normal respiratory effort Auscultation:?clear to auscultation bilaterally Cardio Rate:?regular rate Rhythm:?regular rhythm GI Abdomen is soft, nondistended, nontender to palpation. Neuro General:?patient alert, patient awake and patient oriented x3 Initial Vital Signs Initial Vital Signs: Vital Signs Temperature 99.1 F 02/08/22 15:10 Pulse Rate 98 H 02/08/22 15:10 Respiratory Rate 24 02/08/22 15:10 Blood Pressure 115/53 L 02/08/22 15:10 Pulse Oximetry 99 02/08/22 15:10 Oxygen Delivery Method 02/08/22 15:10 <Alireza Thomson DO - Last Filed: 02/08/22 23:03> Initial Vital Signs Initial Vital Signs: Vital Signs Temperature 99.1 F 02/08/22 15:10 Pulse Rate 98 H 02/08/22 15:10 Respiratory Rate 24 02/08/22 15:10 Blood Pressure 115/53 L 02/08/22 15:10 Pulse Oximetry 99 02/08/22 15:10 Oxygen Delivery Method 02/08/22 15:10 Course <Faustina Macias PA-C - Last Filed: 02/08/22 20:15> Orders Ordered: ED Orders 02/08/22 15:32 Complete Blood Count AUTO DIFF Stat Comprehensive Metabolic Panel Stat Lipase Stat MAG [Magnesium] Stat 02/08/22 15:35 Phosphorous Stat Test Serum,Qual Stat 02/08/22 19:02 EKG-12 Lead Stat 02/08/22 20:15 Magnesium Stat Discontinued Medications Sodium Chloride (Normal Saline 0.9%) 1,000 mls @ 1,000 mls/hr IV BOLUS ONE Stop: 02/08/22 17:53 Last Infusion: 02/08/22 19:35 Dose: 0 mls/hr Documented By: Admin: 02/08/22 17:05 Dose: 1,000 mls/hr Documented By: WILMAR Magnesium Sulfate (Magnesium Sulfate) 2 gm in 50 mls @ 150 mls/hr IV NOW ONE Stop: 02/08/22 19:07 Last Infusion: 02/08/22 20:05 Dose: 0 mls/hr Documented By: JEY Co-signed By: VENUS Admin: 02/08/22 19:39 Dose: 150 mls/hr Documented By: JEY Co-signed By: WILMAR Ondansetron HCl (Ondansetron 4 Mg/2 Ml Inj) 4 mg IV NOW ONE Stop: 02/08/22 17:46 Last Admin: 02/08/22 17:51 Dose: 4 mg Documented By: RB Vital Signs Vital signs: Vital Signs - 8 hr 02/08/22 15:10 02/08/22 16:27 02/08/22 16:28 Temperature 99.1 F Pulse Rate 98 H 97 H Respiratory Rate 24 Blood Pressure 115/53 L 144/67 H Pulse Oximetry 99 98 Oxygen Delivery Method Room Air 02/08/22 16:28 02/08/22 16:30 02/08/22 16:30 Temperature Pulse Rate 97 H 92 H Respiratory Rate Blood Pressure 139/65 Pulse Oximetry 99 97 Oxygen Delivery Method 02/08/22 16:45 02/08/22 16:45 02/08/22 17:00 Temperature Pulse Rate 91 H Respiratory Rate 19 Blood Pressure 147/69 H 128/54 L Pulse Oximetry 96 Oxygen Delivery Method 02/08/22 17:00 02/08/22 17:15 02/08/22 17:15 Temperature Pulse Rate 84 86 Respiratory Rate 20 13 Blood Pressure 124/60 Pulse Oximetry 96 95 Oxygen Delivery Method Room Air 02/08/22 17:30 02/08/22 17:30 02/08/22 17:45 Temperature Pulse Rate 80 97 H Respiratory Rate 26 H 17 Blood Pressure 108/56 L Pulse Oximetry 95 97 Oxygen Delivery Method 02/08/22 17:45 02/08/22 18:00 02/08/22 18:00 Temperature Pulse Rate 96 H Respiratory Rate 16 Blood Pressure 122/58 L 119/56 L Pulse Oximetry 95 Oxygen Delivery Method 02/08/22 18:15 02/08/22 18:15 02/08/22 18:27 Temperature Pulse Rate 92 H Respiratory Rate 21 Blood Pressure 114/59 L 134/62 Pulse Oximetry 96 Oxygen Delivery Method Room Air 02/08/22 18:27 02/08/22 18:30 02/08/22 18:30 Temperature Pulse Rate 80 84 Respiratory Rate 23 Blood Pressure 122/52 L Pulse Oximetry 99 97 Oxygen Delivery Method 02/08/22 19:42 02/08/22 19:42 02/08/22 19:45 Temperature Pulse Rate 79 Respiratory Rate 13 Blood Pressure 114/55 L 125/59 L Pulse Oximetry Oxygen Delivery Method 02/08/22 19:45 02/08/22 20:04 02/08/22 20:30 Temperature Pulse Rate 82 77 81 Respiratory Rate 21 18 17 Blood Pressure Pulse Oximetry 94 95 Oxygen Delivery Method 02/08/22 21:00 Temperature Pulse Rate 73 Respiratory Rate 20 Blood Pressure 110/54 L Pulse Oximetry 95 Oxygen Delivery Method <Alireza Thomson, DO - Last Filed: 02/08/22 23:03> Orders Ordered: ED Orders 02/08/22 15:32 Complete Blood Count AUTO DIFF Stat Comprehensive Metabolic Panel Stat Lipase Stat MAG [Magnesium] Stat 02/08/22 15:35 Phosphorous Stat Test Serum,Qual Stat 02/08/22 19:02 EKG-12 Lead Stat 02/08/22 20:15 Magnesium Stat Discontinued Medications Sodium Chloride (Normal Saline 0.9%) 1,000 mls @ 1,000 mls/hr IV BOLUS ONE Stop: 02/08/22 17:53 Last Infusion: 02/08/22 19:35 Dose: 0 mls/hr Documented By: Admin: 02/08/22 17:05 Dose: 1,000 mls/hr Documented By: WILMAR Magnesium Sulfate (Magnesium Sulfate) 2 gm in 50 mls @ 150 mls/hr IV NOW ONE Stop: 02/08/22 19:07 Last Infusion: 02/08/22 20:05 Dose: 0 mls/hr Documented By: JEY Co-signed By: VENUS Admin: 02/08/22 19:39 Dose: 150 mls/hr Documented By: BS Co-signed By: WILMAR Ondansetron HCl (Ondansetron 4 Mg/2 Ml Inj) 4 mg IV NOW ONE Stop: 02/08/22 17:46 Last Admin: 02/08/22 17:51 Dose: 4 mg Documented By: JUAN Vital Signs Vital signs: Vital Signs - 8 hr 02/08/22 15:10 02/08/22 16:27 02/08/22 16:28 Temperature 99.1 F Pulse Rate 98 H 97 H Respiratory Rate 24 Blood Pressure 115/53 L 144/67 H Pulse Oximetry 99 98 Oxygen Delivery Method Room Air 02/08/22 16:28 02/08/22 16:30 02/08/22 16:30 Temperature Pulse Rate 97 H 92 H Respiratory Rate Blood Pressure 139/65 Pulse Oximetry 99 97 Oxygen Delivery Method 02/08/22 16:45 02/08/22 16:45 02/08/22 17:00 Temperature Pulse Rate 91 H Respiratory Rate 19 Blood Pressure 147/69 H 128/54 L Pulse Oximetry 96 Oxygen Delivery Method 02/08/22 17:00 02/08/22 17:15 02/08/22 17:15 Temperature Pulse Rate 84 86 Respiratory Rate 20 13 Blood Pressure 124/60 Pulse Oximetry 96 95 Oxygen Delivery Method Room Air 02/08/22 17:30 02/08/22 17:30 02/08/22 17:45 Temperature Pulse Rate 80 97 H Respiratory Rate 26 H 17 Blood Pressure 108/56 L Pulse Oximetry 95 97 Oxygen Delivery Method 02/08/22 17:45 02/08/22 18:00 02/08/22 18:00 Temperature Pulse Rate 96 H Respiratory Rate 16 Blood Pressure 122/58 L 119/56 L Pulse Oximetry 95 Oxygen Delivery Method 02/08/22 18:15 02/08/22 18:15 02/08/22 18:27 Temperature Pulse Rate 92 H Respiratory Rate 21 Blood Pressure 114/59 L 134/62 Pulse Oximetry 96 Oxygen Delivery Method Room Air 02/08/22 18:27 02/08/22 18:30 02/08/22 18:30 Temperature Pulse Rate 80 84 Respiratory Rate 23 Blood Pressure 122/52 L Pulse Oximetry 99 97 Oxygen Delivery Method 02/08/22 19:42 02/08/22 19:42 02/08/22 19:45 Temperature Pulse Rate 79 Respiratory Rate 13 Blood Pressure 114/55 L 125/59 L Pulse Oximetry Oxygen Delivery Method 02/08/22 19:45 02/08/22 20:04 02/08/22 20:30 Temperature Pulse Rate 82 77 81 Respiratory Rate 21 18 17 Blood Pressure Pulse Oximetry 94 95 Oxygen Delivery Method 02/08/22 21:00 Temperature Pulse Rate 73 Respiratory Rate 20 Blood Pressure 110/54 L Pulse Oximetry 95 Oxygen Delivery Method MDM - Nausea/Vomiting/Diarrhea <Faustina Macias PA-C - Last Filed: 02/08/22 20:15> Lab Data Result diagrams: 02/08/22 15:32 02/08/22 15:32 Labs: Lab Results 02/08/22 02/08/22 02/08/22 Range/Units 15:32 15:32 15:35 WBC 5.6 (4.5-11.0) X10^3/uL RBC 4.07 (4.0-5.2) X10^6/uL Hgb 13.4 (12.0-16.0) g/dL Hct 40.5 (36-46) % MCV 99.4 (80-100) fL MCH 32.9 (26-34) PG MCHC 33.1 (30-36) % RDW 13.2 (11.6-14.8) % Plt Count 201 (150-400) X10^3/uL Neut % (Auto) 63.1 (50-75) % Lymph % (Auto) 26.5 (25-40) % [place] % (Auto) 8.7 (3-14) % Eos % (Auto) 1.1 L (2-4) % Baso % (Auto) 0.6 (0-2) % Neut # (Auto) 3500 (6912-2720) /uL Lymph # (Auto) 1500 (1354-7755) /uL [place] # (Auto) 500 (0-900) /uL Eos # (Auto) 100 (0-450) /uL Baso # (Auto) 0 (0-100) /uL Sodium 138 (137-145) mmol/L Potassium 3.6 (3.4-5.1) mmol/L Chloride 102 (98-107) mmol/L Carbon Dioxide 29 (22-32) mmol/L BUN 7 (7-17) mg/dL Creatinine 0.49 L (0.52-1.04) mg/dL Estimated GFR > 60 (>60) mL/min BUN/Creatinine Ratio 14.3 (6-22) Glucose 141 H (70-100) mg/dL Calcium 9.3 (8.4-10.2) mg/dL Phosphorus (2.5-4.5) mg/dL Magnesium 1.5 L (1.6-2.3) mg/dL Total Bilirubin 0.6 (0.2-1.3) mg/dL AST 17 (14-36) IU/L ALT 14 (<35) IU/L Alkaline Phosphatase 95 (38-126) U/L Total Protein 6.3 (6.3-8.2) g/dL Albumin 3.8 (3.5-5.0) g/dL Globulin 2.5 (1.7-4.1) g/dL Albumin/Globulin Ratio 1.5 (1.0-2.8) Lipase 40 (23-300) U/L Serum , Qual Negative (Negative) 02/08/22 02/08/22 Range/Units 15:35 20:15 WBC (4.5-11.0) X10^3/uL RBC (4.0-5.2) X10^6/uL Hgb (12.0-16.0) g/dL Hct (36-46) % MCV (80-100) fL MCH (26-34) PG MCHC (30-36) % RDW (11.6-14.8) % Plt Count (150-400) X10^3/uL Neut % (Auto) (50-75) % Lymph % (Auto) (25-40) % [place] % (Auto) (3-14) % Eos % (Auto) (2-4) % Baso % (Auto) (0-2) % Neut # (Auto) (0187-8248) /uL Lymph # (Auto) (1768-2032) /uL [place] # (Auto) (0-900) /uL Eos # (Auto) (0-450) /uL Baso # (Auto) (0-100) /uL Sodium (137-145) mmol/L Potassium (3.4-5.1) mmol/L Chloride (98-107) mmol/L Carbon Dioxide (22-32) mmol/L BUN (7-17) mg/dL Creatinine (0.52-1.04) mg/dL Estimated GFR (>60) mL/min BUN/Creatinine Ratio (6-22) Glucose (70-100) mg/dL Calcium (8.4-10.2) mg/dL Phosphorus 2.5 (2.5-4.5) mg/dL Magnesium 2.9 H (1.6-2.3) mg/dL Total Bilirubin (0.2-1.3) mg/dL AST (14-36) IU/L ALT (<35) IU/L Alkaline Phosphatase (38-126) U/L Total Protein (6.3-8.2) g/dL Albumin (3.5-5.0) g/dL Globulin (1.7-4.1) g/dL Albumin/Globulin Ratio (1.0-2.8) Lipase (23-300) U/L Serum , Qual (Negative) Point of Care Testing Test Results Negative Urine Dip Bedside Urine Glucose Negative Bedside Urine Bilirubin - Negative Bedside Urine Ketone - Negative Urine Specific Wideman 1.015 Bedside Urine Occult Blood - Negative Bedside Urine pH 7.5 Bedside Urine Protein - Negative Bedside Urine Urobilinogen - Negative Bedside Urine Nitrite - Negative MDM Narrative Medical decision making narrative: 41-year-old female with past medical history pots, Andreea-Danlos syndrome, asthma presents to the ED with 4 days of intractable vomiting. Concern for electrolyte imbalance versus dehydration versus cyclic cannabinoid syndrome versus other. Will obtain labs, give IV fluids, Zofran, reassess. Magnesium low at 1.5. Labs otherwise unremarkable. Will replete magnesium, recheck. Discussed with patient the concern that the marijuana could be causing her to intractably vomit, encouraged marijuana cessation. Patient verbalized understanding. Likely discharge home. Signed patient out ot Dr. Thomson. <Alireza Thomson, DO - Last Filed: 02/08/22 23:03> Lab Data Labs: Lab Results 02/08/22 02/08/22 02/08/22 Range/Units 15:32 15:32 15:35 WBC 5.6 (4.5-11.0) X10^3/uL RBC 4.07 (4.0-5.2) X10^6/uL Hgb 13.4 (12.0-16.0) g/dL Hct 40.5 (36-46) % MCV 99.4 (80-100) fL MCH 32.9 (26-34) PG MCHC 33.1 (30-36) % RDW 13.2 (11.6-14.8) % Plt Count 201 (150-400) X10^3/uL Neut % (Auto) 63.1 (50-75) % Lymph % (Auto) 26.5 (25-40) % [place] % (Auto) 8.7 (3-14) % Eos % (Auto) 1.1 L (2-4) % Baso % (Auto) 0.6 (0-2) % Neut # (Auto) 3500 (2451-0458) /uL Lymph # (Auto) 1500 (6324-6481) /uL [place] # (Auto) 500 (0-900) /uL Eos # (Auto) 100 (0-450) /uL Baso # (Auto) 0 (0-100) /uL Sodium 138 (137-145) mmol/L Potassium 3.6 (3.4-5.1) mmol/L Chloride 102 (98-107) mmol/L Carbon Dioxide 29 (22-32) mmol/L BUN 7 (7-17) mg/dL Creatinine 0.49 L (0.52-1.04) mg/dL Estimated GFR > 60 (>60) mL/min BUN/Creatinine Ratio 14.3 (6-22) Glucose 141 H (70-100) mg/dL Calcium 9.3 (8.4-10.2) mg/dL Phosphorus (2.5-4.5) mg/dL Magnesium 1.5 L (1.6-2.3) mg/dL Total Bilirubin 0.6 (0.2-1.3) mg/dL AST 17 (14-36) IU/L ALT 14 (<35) IU/L Alkaline Phosphatase 95 (38-126) U/L Total Protein 6.3 (6.3-8.2) g/dL Albumin 3.8 (3.5-5.0) g/dL Globulin 2.5 (1.7-4.1) g/dL Albumin/Globulin Ratio 1.5 (1.0-2.8) Lipase 40 (23-300) U/L Serum , Qual Negative (Negative) 02/08/22 02/08/22 Range/Units 15:35 20:15 WBC (4.5-11.0) X10^3/uL RBC (4.0-5.2) X10^6/uL Hgb (12.0-16.0) g/dL Hct (36-46) % MCV (80-100) fL MCH (26-34) PG MCHC (30-36) % RDW (11.6-14.8) % Plt Count (150-400) X10^3/uL Neut % (Auto) (50-75) % Lymph % (Auto) (25-40) % [place] % (Auto) (3-14) % Eos % (Auto) (2-4) % Baso % (Auto) (0-2) % Neut # (Auto) (5041-8201) /uL Lymph # (Auto) (1546-6054) /uL [place] # (Auto) (0-900) /uL Eos # (Auto) (0-450) /uL Baso # (Auto) (0-100) /uL Sodium (137-145) mmol/L Potassium (3.4-5.1) mmol/L Chloride (98-107) mmol/L Carbon Dioxide (22-32) mmol/L BUN (7-17) mg/dL Creatinine (0.52-1.04) mg/dL Estimated GFR (>60) mL/min BUN/Creatinine Ratio (6-22) Glucose (70-100) mg/dL Calcium (8.4-10.2) mg/dL Phosphorus 2.5 (2.5-4.5) mg/dL Magnesium 2.9 H (1.6-2.3) mg/dL Total Bilirubin (0.2-1.3) mg/dL AST (14-36) IU/L ALT (<35) IU/L Alkaline Phosphatase (38-126) U/L Total Protein (6.3-8.2) g/dL Albumin (3.5-5.0) g/dL Globulin (1.7-4.1) g/dL Albumin/Globulin Ratio (1.0-2.8) Lipase (23-300) U/L Serum , Qual (Negative) Point of Care Testing Test Results Negative Urine Dip Bedside Urine Glucose Negative Bedside Urine Bilirubin - Negative Bedside Urine Ketone - Negative Urine Specific Wideman 1.015 Bedside Urine Occult Blood - Negative Bedside Urine pH 7.5 Bedside Urine Protein - Negative Bedside Urine Urobilinogen - Negative Bedside Urine Nitrite - Negative MDM Narrative Medical decision making narrative: 41-year-old female with past medical history pots, Andreea-Danlos syndrome, asthma presents to the ED with 4 days of intractable vomiting. Concern for electrolyte imbalance versus dehydration versus cyclic cannabinoid syndrome versus other. Will obtain labs, give IV fluids, Zofran, reassess. Magnesium low at 1.5. Labs otherwise unremarkable. Will replete magnesium, recheck. Discussed with patient the concern that the marijuana could be causing her to intractably vomit, encouraged marijuana cessation. Patient verbalized understanding. Likely discharge home. Signed patient out ot Dr. Thomson. Dr thomson: Received turned over. Reviewed patient's history and physical exam. Repeat magnesium level improved. I did discuss this with the patient. She bought oral potassium pills off of [employer]. I recommended that she not take these pills and talk with her primary doctor. We did discuss magnesium replacement at home. Will discharge with follow-up with her primary provider. Discharge Plan Departure Patient Disposition: Home Clinical Impression: Vomiting, Low magnesium level Instructions: DI for Vomiting -- Adult Activity Restrictions/Additional Instructions: I do recommend that you continue to take all of your medications as directed and tomorrow contact your primary doctor for a follow-up. Prescriptions: No Action albuterol sulfate 2.5 mg /3 mL (0.083 %) Solution For Nebulization 2.5 mg INHALATION Q4-6H PRN (Reason: Asthma) montelukast [Singulair] 10 mg Tablet 10 mg PO BEDTIME albuterol sulfate 90 mcg/actuation Hfa Aerosol Inhaler 2 puff INHALATION Q4-6H PRN (Reason: Shortness Of Breath) ketamine 100 mg Jerzy 100 - 300 mg SUBLINGUAL DAILY MDD 300mg PRN (Reason: depression) diazepam [Valium] 5 mg Tablet 5 - 10 mg PO QID PRN (Reason: Spasms) acetaminophen 325 mg Tablet 650 mg PO Q6HR PRN (Reason: Pain, Mild (1-3)) Qty: 60 0RF docusate sodium [DOK] 100 mg Capsule 100 mg PO BID Qty: 30 0RF hydromorphone 4 mg Tablet 4 mg PO Q3HR PRN (Reason: Pain) Qty: 30 0RF oxycodone 10 mg tablet 10 mg PO Q4H PRN (Reason: pain) Qty: 40 0RF Rx Instructions: s/p surgery cervical spine ondansetron 4 mg tablet,disintegrating 4 mg PO Q6H PRN (Reason: nausea and vomiting) Qty: 20 0RF promethazine 25 mg suppository 25 mg [place] Q4-6H PRN (Reason: nausea and vomiting) Qty: 12 0RF Visit Report Forms: Patient Portal/API
[2022-02-08] MEDS: MAGNESIUM SULFATE 2 GM/50 ML PIGGYBACK IV (19:39)
[2022-02-08 20:36] LABS: Magnesium 2.9 mg/dL (1.6-2.3)
== END 2022-02-08 21:08 | disposition home or self-care (01) ==
PROVIDERS: Emergency Medicine; Emergency Provider Student in an Organized Health Care Education/Training Program
DX: R11.10 Vomiting, unspecified (principal); R79.0 Abnormal level of blood mineral; R10.9 Unspecified abdominal pain; F12.90 Cannabis use, unspecified, uncomplicated; Z79.899 Other long term (current) drug therapy
CPT/HCPCS: 80053; 81003; 81025; 83690; 83735; 84100; 84703; 85025; 93005; 93010; 96361; 96365; 96375; 99284; J2405; J3475